=== PATIENT | female | born 1995 | race Caucasian/White ===

== ENCOUNTER → 2016-06-30 | Outpatient (CLI) | payer OTHER ==
[~2016-06-30] MED LIST: BUPR8SUB19 SL; PRENTAB26 PO; SERT50TA PO; VALA500T60 PO
[2016-06-30 18:10] LABS: URINE APPEARANCE TURBID (CLEAR); URINE BILIRUBIN NEG (NEG); URINE COLOR DK YELLOW; URINE NITRITE POS (NEG); URINE SPECIFIC GRAVITY 1.012 (1.000-1.030); UROBILINOGEN NEG (NEG)
[2016-06-30 18:18] LABS: MANUAL MICROSCOPIC REQUIRED? NO; REVIEW REQ? NO
--- NOTE | 2016-07-03 13:16 | CODING QUERY NO DIAGNOSIS ---
: 1995 TREATMENT RENDERED WITHOUT A DIAGNOSIS To promote full compliance with coding requirements relating to patient care, physician participation is requested in all cases of exhibits manager uncertainty. Please assist us with providing a diagnosis/symptom for the test(s) below: A diagnosis/symptom was not documented on your Order. A valid diagnosis/symptom is required to bill all insurances. Please remember that we are unable to code a diagnosis of rule out, probable, possible, questionable, or suspected. Tests that require a diagnosis: DOS: 06/30/16 * UA Clean Catch DIAGNOSIS: * Urine Culture Clean Catch DIAGNOSIS: Provider Signature: Date: Thank you Dulce Maria [facility] Information Management Once completed, please kindly fax back to [phone] For questions please call [phone]
== END | disposition home or self-care (01) ==
LOC: C.LABSPEC 16:45
PROVIDERS: ATTEND Obstetrics & Gynecology
DX: R30.0 Dysuria (principal); O26.892 Other specified pregnancy related conditions, second trimester; M54.6 Pain in thoracic spine; O30.002 Twin pregnancy, unspecified number of placenta and unspecified number of amniotic sacs, second trimester

== ENCOUNTER → 2016-10-10 | Outpatient (CLI) | payer OTHER | END | disposition home or self-care (01) | LOC: C.LABSPEC 14:52 | PROVIDERS: ATTEND Obstetrics & Gynecology | DX: O30.043 Twin pregnancy, dichorionic/diamniotic, third trimester (principal) ==

== ENCOUNTER 2016-10-11 11:44 | Outpatient (CLI) | payer OTHER ==
[~2016-10-11 11:44] MED LIST changes: -BUPR8SUB19 SL; -SERT50TA PO; -VALA500T60 PO
[2016-10-13] MEDS ORDERED: SERT50TA PO (11:14)
[2016-10-13] MEDS ORDERED: BUPR8SUB19 SL (11:14)
[2016-10-13] MEDS ORDERED: VALA500T60 PO (11:14)
--- NOTE | 2016-10-17 10:22 | EDITING REQUIRED CODING QUERY ---
DIAGNOSIS NEEDED To promote full compliance with coding requirements relating to patient care, physician participation is requested in all cases of arbitrator uncertainty. Please assist us with the question(s) below: Coding Question: The patient received care in labor and delivery on 10/11/16 as noted within the record. Please document the diagnosis that is being addressed by the medication/treatment. Provider Response: DIAGNOSIS:twin IUGR Thank you for your assistance, Sonia Rodriguez - [employer]
== END 2016-10-11 14:04 | disposition home or self-care (01) ==
LOC: C.OPB 11:44 → C.LD 11:44 → C.OPB 14:04
PROVIDERS: ATTEND Obstetrics & Gynecology
DX: O30.003 Twin pregnancy, unspecified number of placenta and unspecified number of amniotic sacs, third trimester (principal); O36.5930 Maternal care for other known or suspected poor fetal growth, third trimester, not applicable or unspecified; Z3A.36 36 weeks gestation of pregnancy

== ENCOUNTER 2016-10-16 10:33 | Inpatient (IN) | payer OTHER ==
--- NOTE | 2016-10-13 10:46 | HISTORY & PHYSICAL EXAMINATION ---
DATE OF ADMISSION: 10/25/2016 CHIEF COMPLAINT: Twin intrauterine , hepatitis C, intrauterine growth retardation, smoker. HISTORY OF PRESENT ILLNESS: The patient is a 21-year-old 5, para 3, has had one spontaneous AB, present twin was diagnosed in the first trimester, her due date is 11/08/2016. She also has a history of heroin abuse. She is hepatitis C positive for 1 year. Presently on Subutex 8 mg twice a day for control of the heroin addiction. She has been treated twice with Celestone during her due to threatened premature labor. Once she had 2 injections at 24 and she had 2 injections at 29. Presently being followed with serial ultrasounds and NSTs. OBSTETRICAL HISTORY: 2009, she had a boy, 6 pounds 10 ounces, spontaneous vaginal delivery at 40 weeks; 2010, another boy, 6 pounds 6 ounces, spontaneous vaginal delivery at 40 weeks; third, 2013, 6 pounds 4 ounces, spontaneous vaginal delivery at 38 weeks. Her present shows twins with twin A breech, twin B vertex, and lack of abdominal growth in twin A. Presently being scheduled for primary low-segment section. SOCIAL HISTORY: Smokes 5 cigarettes a day and has done so for 12 years. No history of alcohol intake. She was employed but quit with . FAMILY HISTORY: Mom is 51, in good health. Father, 58, has arthritis. One brother is 30, in good health. REVIEW OF SYSTEMS: HEAD: No symptoms of frequent or severe headaches. EYES: No symptoms of blurred vision, double vision. EARS: No symptoms of frequent ear infections, difficulty hearing. NOSE: No symptoms of frequent nosebleeds, difficulty breathing through her nose. THROAT: No symptoms of frequent or severe sore throats, difficulty swallowing. RESPIRATORY: No history of asthma, chest pain, shortness of breath. PHYSICAL EXAMINATION: GENERAL: Well-developed, well-nourished 21-year-old white female, alert, oriented x3 and cooperative, in no acute distress, appears her stated age. EYES: Conjunctivae are pink, sclerae white, no evidence of jaundice. EARS: Have normal light reflex bilaterally. NOSE: Have normal mucosa. Septum is midline. There are no polyps. THROAT: Has no erythema or evidence of infection. Teeth are in good state of repair. HEAD: Normocephalic, normal distribution of hair. NECK: Supple. Trachea midline. Thyroid is not enlarged. There is no adenopathy appreciated. Both carotids are of good intensity. CHEST: Clear to auscultation and percussion. No wheezes, rales or rhonchi appreciated. ABDOMEN: Reveals a 44 cm fundal height. Movement is palpable. heart tones are palpable. PELVIC: Reveals cervix to be 4-5 cm, posterior, at about 0 station. MUSCULOSKELETAL: No calf tenderness. IMPRESSIONS OF THIS CASE: Twin , intrauterine growth retardation, hepatitis C, heroin abuse.
--- NOTE | 2016-10-13 11:43 | PAT Medication Instructions ---
Service Date Oct 13, 2016. Current Home Medication List Buprenorphine Hcl (Subutex), 1 TAB SL BID Multivit/Min/Iron/Fol Ac/Pren ( Vitamin), 1 TAB PO QAM Sertraline (Zoloft), 50 MG PO QAM Valacyclovir (Valtrex), 500 MG PO BID Medication Instructions For Your Scheduled Surgery - Hold the following medications the morning of surgery: Multivit/Min/Iron/Fol Ac/Pren ( Vitamin), 1 TAB PO QAM - Take the following medications the morning of surgery with a sip of water: Valacyclovir (Valtrex), 500 MG PO BID Sertraline (Zoloft), 50 MG PO QAM Buprenorphine Hcl (Subutex), 1 TAB SL BID (okay to take up to 4 hours prior to surgery if needed) - Take the following medications as scheduled the night before surgery: Valacyclovir (Valtrex), 500 MG PO BID Buprenorphine Hcl (Subutex), 1 TAB SL BID If you have any questions please call us at [phone] (Radha Copeland PA-C) or [phone] or [phone]
[2016-10-13 13:14] LABS: COMPLETE YES; EOS % 0.6 %; HEMATOCRIT 35.3 % (37-47); IG% 0.1 %; LYMPH % 21.6 %; LYMPH ABS # 1.73 K/uL (1.2-3.4); MEAN CELL VOLUME 89.1 fL (80-100); MEAN CORPUSCULAR HEMOGLOBIN 30.3 pg (25-34); MEAN PLATELET VOLUME 11.2 fL (7.4-10.4); MONO % 5.4 %; NEUT % 72.3 %; PLATELET COUNT 186 K/uL (130-400); RED BLOOD COUNT 3.96 M/uL (4.2-5.4)
[2016-10-13 13:29] LABS: INR 0.9 (0.9-1.1); PARTIAL THROMBOPLASTIN RATIO 1.1; PROTHROMBIN TIME (PATIENT) 9.6 SECONDS (9.0-12.0)
[2016-10-13 13:36] LABS: CALCIUM 8.9 mg/dl (8.5-10.1)
[2016-10-13 13:49] LABS: BLOOD UREA NITROGEN 8 mg/dl (7-18); BUN/CREATININE RATIO 13.4 (10-20); CARBON DIOXIDE 22 mmol/L (21-32); CHLORIDE 105 mmol/L (98-107); CREATININE 0.58 mg/dl (0.60-1.20); GLUCOSE 93 mg/dl (70-99); POTASSIUM 3.9 mmol/L (3.5-5.1); SODIUM 138 mmol/L (136-145)
[~2016-10-16] VITALS: Ht 167.6 cm; Wt 74.1 kg
[~2016-10-16 10:33] MED LIST changes: +BUPR8SUB19 SL; +CEFOXITIN IV 2,000 MG in DEXTROSE 5% 50ML 50 ML IV SCH; +SERT50TA PO; +VALA500T60 PO
[2016-10-16] MEDS ORDERED: LACTATED RINGER'S 1000ML 1,000 ML IV SCH ×2 (11:41→12:00)
[2016-10-16] MEDS ORDERED: CITRIC ACID/SODIUM CITRATE 15 ML UDC PO SCH (11:45)
[2016-10-16 12:39] VITALS: Ht 167.6 cm; Wt 74.1 kg
[2016-10-16 12:45] LABS: BASO % 0.1 %; BASO ABS # 0.01 K/uL (0-0.2); COMPLETE YES; EOS % 0.1 %; HEMATOCRIT 35.4 % (37-47); IG% 0.4 %; LYMPH % 17.4 %; LYMPH ABS # 1.37 K/uL (1.2-3.4); MEAN CELL VOLUME 88.7 fL (80-100); MEAN CORPUSCULAR HEMOGLOBIN 29.1 pg (25-34); MEAN CORPUSCULAR HGB CONC 32.8 g/dl (32-36); MEAN PLATELET VOLUME 10.6 fL (7.4-10.4); MONO % 6.6 %; NEUT % 75.4 %; PLATELET COUNT 187 K/uL (130-400); RED BLOOD COUNT 3.99 M/uL (4.2-5.4); WHITE BLOOD COUNT 7.89 K/uL (4.8-10.8)
[2016-10-16 14:43] LABS: BENZODIAZEPINE, URINE NEG (NEG); COCAINE,URINE NEG (NEG); PHENCYCLIDINE, URINE NEG (NEG)
[2016-10-16] MEDS ORDERED: MoRPHine SULFATE PF 1 MG/ML 10 ML AMP/VIAL ONE (14:46)
[2016-10-16] MEDS ORDERED: MoRPHine SULFATE PF 1 MG/ML 10 ML AMP/VIAL EPI PRN (15:00)
[2016-10-16] MEDS ORDERED: ONDANSETRON INJ 2 MG/ML 2 ML VIAL IV PRN ×2 (15:00)
[2016-10-16] MEDS ORDERED: KETOROLAC TROMETHAMINE 30 MG/ML VIAL IV. PRN (15:00)
[2016-10-16] MEDS ORDERED: NALOXONE HCL 0.4 MG/1 ML VIAL/CARP IV PRN (15:00)
[2016-10-16] MEDS ORDERED: NO NARCOTICS OR SEDATIVES SCH (15:00)
[2016-10-16] MEDS ORDERED: NALOXONE HCL INJ 0.08 MG in SYRINGE 1.8 ML IV PRN (15:00)
[2016-10-16] MEDS ORDERED: LACTATED RINGER'S 1000ML 500 ML IV PRN (15:00)
[2016-10-16] MEDS ORDERED: PROMETHAZINE HCL INJ 25 MG in SODIUM CHLORIDE 0.9% 50ML 50 ML IV PRN (15:00)
[2016-10-16] MEDS ORDERED: SODIUM CHLORIDE 0.9% 1000ML 1,000 ML IV PRN (15:00)
[2016-10-16] MEDS ORDERED: NALOXONE HCL INJ 1 MG in SODIUM CHLORIDE 0.9% 1000ML 1,000 ML IV PRN ×4 (15:00)
[2016-10-16] MEDS ORDERED: PROMETHAZINE HCL INJ 12.5 MG in SODIUM CHLORIDE 0.9% 50ML 50 ML IV PRN (15:00)
[2016-10-16] MEDS ORDERED: EpHEDrine SULFATE INJ 50 MG/ML AMP IV PRN ×2 (15:00)
[2016-10-16] MEDS ORDERED: NALBUPHINE HCL INJ 10 MG/ML AMP IV PRN (15:00)
[2016-10-16] MEDS ORDERED: ATROPINE SULFATE 0.1 MG/ML 5ML SYR IV PRN (15:00)
[2016-10-16] MEDS ORDERED: PHENYLEPHRINE 100MCG/ML 5ML SYR IV PRN (15:00)
[2016-10-16] MEDS ORDERED: DiphenhydrAMINE HCL 50 MG/ML VIAL IV PRN (15:00)
[2016-10-16] MEDS ORDERED: OXYTOCIN INJ 10 UNITS/ML VIAL ONE ×3 (15:32→16:07)
[2016-10-16] MEDS ORDERED: ONDANSETRON INJ 2 MG/ML 2 ML VIAL ONE (15:32)
[2016-10-16] MEDS ORDERED: METOCLOPRAMIDE HCL INJ 5 MG/ML 2 ML VIAL ONE (15:32)
[2016-10-16] MEDS ORDERED: MIDAZOLAM HCL 1 MG/ML 2ML VIAL ONE (16:06)
[2016-10-16] MEDS ORDERED: ALBUTEROL HFA INHALER 8.5 GM INH ONE (16:29)
[2016-10-16] MEDS ORDERED: SENNA 8.6 MG TAB PO PRN (16:30)
[2016-10-16] MEDS ORDERED: DIPHTHERIA/TETANUS/PERTUSSIS 0.5 ML SYR/VIAL IM. ONE (16:30)
[2016-10-16] MEDS ORDERED: SUPERCREAM 0.870 % 15GM JAR EXT PRN (16:30)
[2016-10-16] MEDS ORDERED: LANOLIN OINT EXT PRN ×2 (16:30)
[2016-10-16] MEDS ORDERED: BENZOCAINE 20% AER SPR 82.5 GM CAN EXT PRN (16:30)
[2016-10-16] MEDS ORDERED: HYDROCORTISONE ACETATE 25 MG SUPP PR PRN (16:30)
[2016-10-16] MEDS ORDERED: MAGNESIUM HYDROXIDE SUSP 30 ML UDC PO PRN (16:30)
[2016-10-16] MEDS ORDERED: PROPOFOL IV EMULSION 10 MG/ML 20 ML VIAL IV ONE (16:33)
[2016-10-16] MEDS ORDERED: SUCCINYLCHOLINE CHLORIDE 20 MG/ML 10 ML VIAL IV ONE (16:33)
--- NOTE | 2016-10-16 16:51 | OPERATIVE REPORT ---
DATE OF OPERATION: 10/16/2016 PROCEDURE: Primary low segment section. INDICATIONS FOR SURGERY: Toxemia of , proteinuria, history of heroin addiction, intrauterine growth restriction, breech presentation twin A. SURGEON: DR MURO ASS: ABHISHEK PREOPERATIVE DIAGNOSIS: Intrauterine growth restriction, toxemia, proteinuria. POSTOPERATIVE DIAGNOSIS: Same, nuchal cord around each twin, breech presentation of twin A, vertex presentation twin B. OPERATIVE FINDINGS AND PROCEDURE: The patient was taken to the OR after given prophylactic antibiotics and sequential compression stockings were applied. In the OR she received spinal anesthesia. After spinal anesthesia had been obtained and a good level obtained, lower abdomen was painted with Betadine paint. Osullivan catheter was inserted aseptically in the bladder connected to gravity drainage. After draping in the usual sterile fashion and testing for level, Pfannenstiel incision was made and carried down to the anterior fascia by sharp dissection. Hemostasis was secured by electrocauterization. Fascia was incised transversely, from underlying muscle by blunt and sharp dissection. Recti muscles were in the midline exposing the peritoneum which was carefully raised and entered. Incision was made above the vesicouterine fold. Bladder was pushed out of the operative field. The lower uterine segment was scored with a knife then entered with scissors and clear amniotic fluid was seen at this time. Visual Merchandiser's hand was inserted in the uterine cavity. With fundal pressure the first infant was delivered via breech presentation. There was a nuchal cord x1 which had to be reduced and then cord was clamped and cut and the infant was attended to by special class welder, Dr. Salmon who was scrubbed and present at the time of delivery. Following this, the second amniotic sac was ruptured. The second twin was vertex, had a nuchal cord which was reduced around the neck and then the body was delivered without difficulty. Cord was clamped and cut and that twin was attended to by the pediatricians. Following this, cord blood was taken. Placenta was removed manually. Uterus, tubes, and ovaries were brought out through the incision. Ten units of Pitocin was injected into the myometrium. Uterine cavity was cleansed with a clean sponge. Then a chromic gut suture was used to approximate the muscular layer with a continuous interlocking suture of chromic. Several interrupted sutures had to be used on the right due to some bleeding from the right uterine arteries. Following control the bleeding a second layer was placed with a heavy duty Vicryl suture and this approximated the fascial layer over the myometrial closure. Following this, 2 [id number] sutures were placed in the middle to complete the hemostatic process. Peritoneal edges were approximated with continuous 3-0 chromic gut suture. Uterus, tubes, and ovaries were inspected and found to be normal. Pelvis was cleansed of all blood clots and debris. Uterus, tubes, and ovaries were reinserted in the abdominal cavity. Careful anatomical approximation anterior abdominal wall was performed. Peritoneum was closed with a mattress suture of chromic catgut. Recti muscles were approximated with interrupted [id number] suture of chromic catgut. The fascia was closed with continuous interlocking suture of Vicryl on each side, tied in the midline. SubQ was approximated with continuous plain and skin edges were approximated with staple clips. I attest to the content of the Intraoperative Record and any orders documented therein. Any exceptions are noted below. MINDYD
[2016-10-16] MEDS: OXYTOCIN INJ 20 UNITS in LACTATED RINGER'S 1000ML 1,000 ML IV SCH (17:02)
[2016-10-16] MEDS ORDERED: NURSING VERBAL MED ORDER ONE ×3 (17:45→22:15)
[2016-10-16] MEDS: MEPERIDINE HCL 25 MG/ML CARP IV PRN ×2 (17:45→18:34)
[2016-10-16] MEDS: BUPRENORPHINE HCL 8 MG SUBL SL SCH (19:18)
[2016-10-16] MEDS ORDERED: BUPRENORPHINE HCL 8 MG SUBL SL SCH ×2 (20:00)
[2016-10-16 21:30] VITALS: BP 121/69; PULSE 82; TEMP 36.7; O2SAT 90
[2016-10-16 22:30] VITALS: O2SAT 92
[2016-10-16] MEDS ORDERED: ACETAMINOPHEN IV 1000MG/100ML IV PRN (22:30)
[2016-10-16] MEDS: KETOROLAC TROMETHAMINE 30 MG/ML VIAL IV. PRN (23:23)
[2016-10-16 23:30] VITALS: BP 127/83; PULSE 76; TEMP 37.2; O2SAT 91
[2016-10-17] VITALS (15 sets, daily range): BP systolic 105–119; BP diastolic 70–82; PULSE 61–88; TEMP 36.6–37; O2SAT 91–98
[2016-10-17] MEDS: MEPERIDINE HCL 25 MG/ML CARP IV PRN ×2 (01:07→06:22)
[2016-10-17] MEDS: DOCUSATE SODIUM 100 MG CAP PO SCH ×3 (01:11→20:26)
[2016-10-17] MEDS: SIMETHICONE 80 MG CHEW PO SCH ×6 (01:12→20:26)
[2016-10-17] MEDS: OXYTOCIN INJ 20 UNITS in LACTATED RINGER'S 1000ML 1,000 ML IV SCH (01:16)
[2016-10-17] MEDS: BUPRENORPHINE HCL 8 MG SUBL SL SCH ×2 (06:02→14:06)
[2016-10-17 06:32] LABS: BASO % 0.1 %; BASO ABS # 0.01 K/uL (0-0.2); COMPLETE YES; EOS % 0.3 %; HEMATOCRIT 31.8 % (37-47); IG% 0.2 %; LYMPH % 19.8 %; LYMPH ABS # 1.76 K/uL (1.2-3.4); MEAN CELL VOLUME 89.3 fL (80-100); MEAN CORPUSCULAR HEMOGLOBIN 30.1 pg (25-34); MEAN CORPUSCULAR HGB CONC 33.6 g/dl (32-36); MEAN PLATELET VOLUME 10.7 fL (7.4-10.4); NEUT % 73.6 %; PLATELET COUNT 168 K/uL (130-400); RED BLOOD COUNT 3.56 M/uL (4.2-5.4); WHITE BLOOD COUNT 8.87 K/uL (4.8-10.8)
--- NOTE | 2016-10-17 06:55 | Anesthesiology Progress Note ---
Anesthesia Post Op Note Date & Time October 17, 2016 at 06:53 Vital Signs Pain Intensity: 6.0 Vital Signs Past 12 Hours Date Time Temp Pulse Resp B/P Pulse Ox O2 Delivery O2 Flow Rate FiO2 10/17/16 06:28 18 94 Room Air 10/17/16 06:27 18 94 10/17/16 05:30 16 97 10/17/16 04:30 16 98 10/17/16 04:30 36.8 70 16 119/82 98 Venturi Mask 15.0 10/17/16 03:30 16 97 10/17/16 02:30 18 97 10/17/16 01:30 20 96 10/17/16 01:30 20 96 Venturi Mask 15.0 10/17/16 01:00 26 91 10/17/16 01:00 26 91 Venturi Mask 15.0 10/16/16 23:30 91 Nasal Cannula 4.0 10/16/16 23:30 20 91 10/16/16 23:30 Nasal Cannula 2.0 88 10/16/16 23:30 37.2 76 20 127/83 91 Nasal Cannula 4.0 10/16/16 22:30 20 92 10/16/16 21:30 22 90 10/16/16 21:30 36.7 82 22 121/69 90 Nasal Cannula 4.0 10/16/16 21:30 90 Nasal Cannula 4.0 Notes Mental Status: alert / awake / arousable, participated in evaluation Pt Amnestic to Procedure: Yes Nausea / Vomiting: adequately controlled Pain: adequately controlled, improving with treatment Airway Patency, RR, SpO2: stable & adequate, see Notes BP & HR: stable & adequate Hydration State: stable & adequate Anesthetic Complications: no major complications apparent Doing a lot of coughing through the evening, coughing up a lot of mucus - still off and on using oxygen.
[2016-10-17] MEDS: KETOROLAC TROMETHAMINE 30 MG/ML VIAL IV. PRN (07:51)
--- NOTE | 2016-10-17 07:53 | Progress Note ---
Subjective October 17, 2016. Subjective conversation w/ patient Ambulation: limited ambulation Voiding: dudley catheter in place Passing Gas: No Diet Tolerance: Clear Liquids Lochia: Small Review of Systems Constitutional: + fever Objective Vital Signs Date Time Temp Pulse Resp B/P Pulse Ox O2 Delivery O2 Flow Rate FiO2 10/17/16 06:28 18 94 Room Air 10/17/16 06:27 18 94 10/17/16 05:30 16 97 10/17/16 04:30 16 98 10/17/16 04:30 36.8 70 16 119/82 98 Venturi Mask 15.0 10/17/16 03:30 16 97 10/17/16 02:30 18 97 10/17/16 01:30 20 96 10/17/16 01:30 20 96 Venturi Mask 15.0 10/17/16 01:00 26 91 10/17/16 01:00 26 91 Venturi Mask 15.0 10/16/16 23:30 91 Nasal Cannula 4.0 10/16/16 23:30 20 91 10/16/16 23:30 Nasal Cannula 2.0 88 10/16/16 23:30 37.2 76 20 127/83 91 Nasal Cannula 4.0 10/16/16 22:30 20 92 10/16/16 21:30 22 90 10/16/16 21:30 36.7 82 22 121/69 90 Nasal Cannula 4.0 10/16/16 21:30 90 Nasal Cannula 4.0 Physical Exam General Appearance: mild distress Respiratory/Chest: lungs clear Abdomen: non tender Fundus: Firm, Non-Tender Incision Description: Clean, Dry & Intact Laboratory Results Last 24 Hours Test 10/16/16 11:59 10/16/16 14:05 10/16/16 15:25 10/17/16 06:15 White Blood Count 7.89 K/uL 8.87 K/uL Red Blood Count 3.99 M/uL 3.56 M/uL Hemoglobin 11.6 g/dL 10.7 g/dL Hematocrit 35.4 % 31.8 % Mean Corpuscular Volume 88.7 fL 89.3 fL Mean Corpuscular Hemoglobin 29.1 pg 30.1 pg Mean Corpuscular Hemoglobin Concent 32.8 g/dl 33.6 g/dl Platelet Count 187 K/uL 168 K/uL Mean Platelet Volume 10.6 fL 10.7 fL Neutrophils (%) (Auto) 75.4 % 73.6 % Lymphocytes (%) (Auto) 17.4 % 19.8 % Monocytes (%) (Auto) 6.6 % 6.0 % Eosinophils (%) (Auto) 0.1 % 0.3 % Basophils (%) (Auto) 0.1 % 0.1 % Neutrophils # (Auto) 5.95 K/uL 6.52 K/uL Lymphocytes # (Auto) 1.37 K/uL 1.76 K/uL Monocytes # (Auto) 0.52 K/uL 0.53 K/uL Eosinophils # (Auto) 0.01 K/uL 0.03 K/uL Basophils # (Auto) 0.01 K/uL 0.01 K/uL RDW Standard Deviation 46.5 fL 46.9 fL RDW Coefficient of Variation 14.2 % 14.3 % Immature Granulocyte % (Auto) 0.4 % 0.2 % Immature Granulocyte # (Auto) 0.03 K/uL 0.02 K/uL Urine Opiates Screen NEG Urine Methadone, Qualitative NEG Urine Barbiturates NEG Urine Phencyclidine (PCP) Level NEG Ur Amphetamine/Methamphetamine NEG MDMA (Ecstasy) Screen NEG Urine Benzodiazepines Screen NEG Urine Cocaine Metabolite NEG Urine Marijuana (THC) NEG Total Bilirubin 0.4 mg/dl Direct Bilirubin 0.2 mg/dl Aspartate Amino Transf (AST/SGOT) 46 U/L Alanine Aminotransferase (ALT/SGPT) 76 U/L Alkaline Phosphatase 310 U/L Total Protein 6.6 gm/dl Albumin 2.3 gm/dl Assessment and Plan Problem List Medical Problems: (1) Diffuse abdominal pain Status: Acute (2) Opioid withdrawal Status: Acute (3) Status: Acute Post-Op Day#: 1 Continue Routine Care: hypoactive bowel sounds
[2016-10-17] MEDS ORDERED: BUPRENORPHINE HCL 8 MG SUBL SL SCH (08:00)
[2016-10-17] MEDS ORDERED: DC INTRASPINAL MORPHINE SCH (08:00)
[2016-10-17] MEDS ORDERED: ONDANSETRON INJ 2 MG/ML 2 ML VIAL IV PRN (08:01)
[2016-10-17] MEDS ORDERED: KETOROLAC TROMETHAMINE 30 MG/ML VIAL IV. PRN (08:01)
[2016-10-17] MEDS ORDERED: ZOLPIDEM TARTRATE 5 MG TAB PO PRN (08:01)
[2016-10-17] MEDS ORDERED: DiphenhydrAMINE HCL 50 MG/ML VIAL IV PRN (08:01)
[2016-10-17] MEDS ORDERED: MEPERIDINE HCL 50 MG/ML CARP IV PRN ×2 (08:01)
[2016-10-17] MEDS: FERROUS SULFATE 325 MG TAB PO SCH (08:46)
[2016-10-17] MEDS: PRENATAL VITAMIN TAB PO SCH (08:46)
[2016-10-17] MEDS ORDERED: ALBUTEROL HFA 8 GM INHALER INH PRN (09:15)
[2016-10-17] MEDS: OXYCODONE/ACETAMINOPHEN 5-325 TAB PO PRN ×3 (11:45→20:33)
--- NOTE | 2016-10-17 12:42 | Progress Note ---
Subjective Date of Service: October 17, 2016. Subjective Pt evaluation today including: conversation w/ patient, conversation w/ family , physical exam, chart review, lab review, review of studies, conversation w/ client relationship consultant, review of inpatient medication list asked to see due to SOB, hypoxia. came to hospital per OB - concern on multiple risks for worsening outcomes and hence Csection. during section, spinal block was not helping enough with pain - changed to ETT. after awakening and since - SOB, cough, pain with cough (mostly incisional pain at Csection site). no f/c/s. white/frothy sputum with a decent amount of blood. substernal chest pain with coughing as well. no particularly swollen leg no calf pain. babies had to go to [facility] but reportedly are doing well. pumping breast milk, wants to be able to get to babies as soon as is safe. notes her older children at home (2 boys 19 months apart) have both been sick w strep and other respiratory infections, and with hindsight she felt like she was coming down wtih something before coming to L&D (she informed me of this when i revisited after CT) initial HPI basically sob, cough, bloody sputum, throat pain. no f/c/s. couldn't talk much - partly due to dyspnea and partly due to throat pain Problem List Medical Problems: (1) Diffuse abdominal pain Status: Acute (2) Opioid withdrawal Status: Acute (3) Status: Acute Review of Systems Constitutional: No chills, No fever, No sweats ENT: + sore throat Respiratory: + cough, + dyspnea at rest, + dyspnea on exertion, + hemoptysis, + sputum Abdomen: + problem reported (pain at section scar) ros otherwise negative except for as above Objective Vital Signs Date Time Temp Pulse Resp B/P Pulse Ox O2 Delivery O2 Flow Rate FiO2 10/17/16 08:15 Room Air 10/17/16 08:15 36.8 71 18 118/80 95 Venturi Mask 15.0 10/17/16 07:30 16 95 10/17/16 06:28 18 94 Room Air 10/17/16 06:27 18 94 10/17/16 05:30 16 97 10/17/16 04:30 16 98 10/17/16 04:30 36.8 70 16 119/82 98 Venturi Mask 15.0 10/17/16 03:30 16 97 10/17/16 02:30 18 97 10/17/16 01:30 20 96 10/17/16 01:30 20 96 Venturi Mask 15.0 10/17/16 01:00 26 91 10/17/16 01:00 26 91 Venturi Mask 15.0 10/16/16 23:30 91 Nasal Cannula 4.0 10/16/16 23:30 20 91 10/16/16 23:30 Nasal Cannula 2.0 88 10/16/16 23:30 37.2 76 20 127/83 91 Nasal Cannula 4.0 10/16/16 22:30 20 92 10/16/16 21:30 22 90 10/16/16 21:30 36.7 82 22 121/69 90 Nasal Cannula 4.0 10/16/16 21:30 90 Nasal Cannula 4.0 Physical Exam General Appearance: + pertinent finding (sitting upright, appearing fatigued and a little dyspnic) Eyes: EOMI ENT: pharynx normal Neck: trachea midline Respiratory/Chest: no respiratory distress, no accessory muscle use, + pertinent finding (faintly coarse breath sounds R upper lung field. no rales no wheeze no rhonchi overall good air entry good effort, appearing mildly dyspnic but no accessory muscles) Cardiovascular: regular rate, rhythm Comments: msk/ost - R>L Tspine paraspinals and intercostals high tone/tender/decreased ROM - direct myofascial and balanced ligamentous tension - improved. pt tolerated well Laboratory Results Last 24 Hours Test 10/16/16 14:05 10/16/16 15:25 10/17/16 06:15 Urine Opiates Screen NEG Urine Methadone, Qualitative NEG Urine Barbiturates NEG Urine Phencyclidine (PCP) Level NEG Ur Amphetamine/Methamphetamine NEG MDMA (Ecstasy) Screen NEG Urine Benzodiazepines Screen NEG Urine Cocaine Metabolite NEG Urine Marijuana (THC) NEG Total Bilirubin 0.4 mg/dl Direct Bilirubin 0.2 mg/dl Aspartate Amino Transf (AST/SGOT) 46 U/L Alanine Aminotransferase (ALT/SGPT) 76 U/L Alkaline Phosphatase 310 U/L Total Protein 6.6 gm/dl Albumin 2.3 gm/dl White Blood Count 8.87 K/uL Red Blood Count 3.56 M/uL Hemoglobin 10.7 g/dL Hematocrit 31.8 % Mean Corpuscular Volume 89.3 fL Mean Corpuscular Hemoglobin 30.1 pg Mean Corpuscular Hemoglobin Concent 33.6 g/dl Platelet Count 168 K/uL Mean Platelet Volume 10.7 fL Neutrophils (%) (Auto) 73.6 % Lymphocytes (%) (Auto) 19.8 % Monocytes (%) (Auto) 6.0 % Eosinophils (%) (Auto) 0.3 % Basophils (%) (Auto) 0.1 % Neutrophils # (Auto) 6.52 K/uL Lymphocytes # (Auto) 1.76 K/uL Monocytes # (Auto) 0.53 K/uL Eosinophils # (Auto) 0.03 K/uL Basophils # (Auto) 0.01 K/uL RDW Standard Deviation 46.9 fL RDW Coefficient of Variation 14.3 % Immature Granulocyte % (Auto) 0.2 % Immature Granulocyte # (Auto) 0.02 K/uL Assessment and Plan hypoxia, hemoptysis -initial ddx given clear lungs, no f/c/s, hemoptysis was PE vs laryngeal from ETT -stat CT - fortunately negative for PE, but did show multifocal pneumonia - when revisited pt then gave additional hx (sick kids, feeling like she was "coming down with something" prior to arriving at L&D that corroborated this well) community acquired pneumonia -zithromax, rocephin (both safe w ) -ipratropium (safe w ) -albuterol if needed (can make somewhat tachy or tremulous but if needed for breathing risks outweigh benefits and pt could also simply not give that breast milk if concerned) acute hypoxic respiratory failure -appearing to be from pneumonia superimposed on COPD -treat as above -once clearly stable, if can be discharged sooner with home O2 she would desire this so that she can get to [facility] to see her twins COPD -PFTs from 2015 actually did show moderate COPD, alpha one level Ok. most likely from a persistent asthma "brand" of COPD -appears on outpatient records at least from pulmonary to be spotty with follow up and therefore ?adherence -hopefully can have regular f/u at least with PCP -currently not wheezing, no clear benefit to systemic steroids somatic dysfunction - thoracic and rib region -pulling on data from more elderly with pneumonia - treatment as above can hasten resolution of pneumonia, and in data from children with asthma said treatment can improve airflow -OMT as above DVT proph -ambulation
[2016-10-17] MEDS ORDERED: OPTIRAY 320 IV PRN (13:45)
[2016-10-17] MEDS: SERTRALINE HCL 50 MG TAB PO SCH (14:08)
--- NOTE | 2016-10-17 14:16 | DIAGNOSTIC IMAGING REPORT ---
CT ANGIOGRAM OF THE CHEST CLINICAL HISTORY: Hemoptysis. COMPARISON STUDY: Chest CT dated 01/05/2015. Chest x-ray dated 06/17/2015. TECHNIQUE: Following the IV administration of 94 cc of Optiray 320, CT angiogram of the chest was performed from the upper abdomen to the thoracic inlet utilizing the pulmonary embolus protocol. Images are reviewed in the axial, sagittal, and coronal planes. 3-D MIPS images are created and assessed. IV contrast was administered without complication. CT DOSE: 396.57 mGycm FINDINGS: Thyroid: Imaged portions of the thyroid gland are normal in size and attenuation. Thoracic aorta: The thoracic aorta is normal in caliber and demonstrates standard 3-vessel arch anatomy. No dissection is seen. Pulmonary vasculature: The pulmonary trunk is normal in caliber. There are no filling defects identified in main, lobar, or segmental pulmonary branches to suggest pulmonary embolus. Heart: The heart is normal in size and configuration, and without pericardial effusion. Lungs and pleural spaces: There are small pleural effusions. Multifocal patchy airspace consolidation is seen throughout both lungs, greatest in the upper lobes and at the left lung base. Numerous cystic foci are again seen within the upper lobes. The trachea and central airways Are clear. Mediastinum: There is no mediastinal lymphadenopathy. Griselda: Mildly enlarged hilar nodes measure up to 1.4 cm in short axis. These are likely on a reactive basis. Axillae: There is no axillary lymphadenopathy. Upper abdomen: Partially visualized upper abdominal viscera is within normal limits. Skeletal structures: No lytic or blastic bony lesions are seen. IMPRESSION: 1. There is no evidence of pulmonary embolus in the main, lobar, or segmental pulmonary arteries. 2. There is multifocal patchy airspace consolidation seen throughout both lungs and small pleural effusions. The appearance is typical for multifocal pneumonia. Radiographic follow-up to resolution is recommended. 3. Numerous small pulmonary cysts are similar to previous. Electronically signed by: Kvng Craven M.D. 10/17/2016 2:15 PM Dictated Date/Time: 10/17/2016 2:11 PM
[2016-10-17] MEDS ORDERED: IPRATROPIUM BROMIDE NEB SOLN 0.02% 2.5 ML VIAL INH ONE (14:45)
[2016-10-17] MEDS ORDERED: CEFTRIAXONE SOD INJ 1,000 MG in DEXTROSE 5% 50ML 50 ML IV ONE (14:45)
[2016-10-17] MEDS ORDERED: AZITHROMYCIN IV 500 MG in DEXTROSE 5% 250ML 250 ML IV ONE (15:30)
[2016-10-17] MEDS: IBUPROFEN 600 MG TAB PO PRN ×2 (15:50→20:33)
[2016-10-17] MEDS ORDERED: BISACODYL 5 MG TABEC PO ONE (22:00)
[2016-10-18] MEDS ORDERED: IPRATROPIUM BROMIDE NEB SOLN 0.02% 2.5 ML VIAL INH SCH
[2016-10-18] MEDS: OXYCODONE/ACETAMINOPHEN 5-325 TAB PO PRN ×4 (00:36→13:27)
[2016-10-18] MEDS: IBUPROFEN 600 MG TAB PO PRN ×3 (00:36→13:27)
[2016-10-18 01:34] VITALS: PULSE 75; O2SAT 91
[2016-10-18] MEDS: IPRATROPIUM BROMIDE NEB SOLN 0.02% 2.5 ML VIAL INH SCH ×4 (01:34→14:38)
[2016-10-18] MEDS ORDERED: MEPERIDINE HCL 25 MG/ML CARP IV PRN (03:15)
[2016-10-18] MEDS ORDERED: NURSING VERBAL MED ORDER ONE ×2 (03:15→11:15)
[2016-10-18] MEDS: BUPRENORPHINE HCL 8 MG SUBL SL SCH (06:00)
[2016-10-18 07:40] VITALS: PULSE 54; O2SAT 96
[2016-10-18 07:55] VITALS: BP 115/78; PULSE 61; TEMP 36.7; O2SAT 95
[2016-10-18] MEDS ORDERED: BISACODYL 5 MG TABEC PO ONE (08:00)
[2016-10-18] MEDS: PRENATAL VITAMIN TAB PO SCH (08:29)
[2016-10-18] MEDS: SIMETHICONE 80 MG CHEW PO SCH ×3 (08:29→17:22)
[2016-10-18] MEDS: FERROUS SULFATE 325 MG TAB PO SCH (08:29)
[2016-10-18] MEDS: DOCUSATE SODIUM 100 MG CAP PO SCH (08:29)
[2016-10-18] MEDS: SERTRALINE HCL 50 MG TAB PO SCH (08:29)
[2016-10-18 08:33] LABS: HEMATOCRIT 30.1 % (37-47); MEAN CELL VOLUME 89.9 fL (80-100); MEAN CORPUSCULAR HEMOGLOBIN 29.6 pg (25-34); MEAN CORPUSCULAR HGB CONC 32.9 g/dl (32-36); MEAN PLATELET VOLUME 10.2 fL (7.4-10.4); PLATELET COUNT 188 K/uL (130-400); RED BLOOD COUNT 3.35 M/uL (4.2-5.4); WHITE BLOOD COUNT 8.17 K/uL (4.8-10.8)
[2016-10-18 09:00] LABS: BLOOD UREA NITROGEN 8 mg/dl (7-18); BUN/CREATININE RATIO 14.9 (10-20); CARBON DIOXIDE 25 mmol/L (21-32); CHLORIDE 107 mmol/L (98-107); CREATININE 0.51 mg/dl (0.60-1.20); GLUCOSE 61 mg/dl (70-99); POTASSIUM 4.1 mmol/L (3.5-5.1); SODIUM 140 mmol/L (136-145)
[2016-10-18 09:28] LABS: CALCIUM 8.4 mg/dl (8.5-10.1)
--- NOTE | 2016-10-18 09:38 | Progress Note ---
Subjective October 18, 2016. Subjective conversation w/ patient Ambulation: ambulating normally Voiding: no voiding problems, dudley catheter in place Passing Gas: Yes Diet Tolerance: Regular Diet Lochia: Small Feeding Type: Breast Feeding Review of Systems Constitutional: + fever Objective Vital Signs Date Time Temp Pulse Resp B/P Pulse Ox O2 Delivery O2 Flow Rate FiO2 10/18/16 07:40 54 16 96 Room Air 10/18/16 01:34 75 91 Room Air 10/17/16 23:20 36.6 61 20 118/74 95 Room Air 10/17/16 23:20 95 Room Air 10/17/16 20:51 70 95 Room Air 35 10/17/16 16:30 97 Nasal Cannula 5.0 Humidified Oxygen 10/17/16 16:30 37.0 64 24 105/70 97 Nasal Cannula 5.0 Humidified Oxygen 10/17/16 16:04 74 95 Venturi Mask 35 10/17/16 12:15 36.6 88 16 112/80 94 Room Air Physical Exam General Appearance: WELL-APPEARING Abdomen: normal bowel sounds, non tender Fundus: Firm, Non-Tender Incision Description: Clean, Dry & Intact Extremities: no pedal edema, no calf tenderness Laboratory Results Last 24 Hours Test 10/18/16 08:16 White Blood Count 8.17 K/uL Red Blood Count 3.35 M/uL Hemoglobin 9.9 g/dL Hematocrit 30.1 % Mean Corpuscular Volume 89.9 fL Mean Corpuscular Hemoglobin 29.6 pg Mean Corpuscular Hemoglobin Concent 32.9 g/dl RDW Standard Deviation 47.5 fL RDW Coefficient of Variation 14.4 % Platelet Count 188 K/uL Mean Platelet Volume 10.2 fL Sodium Level 140 mmol/L Potassium Level 4.1 mmol/L Chloride Level 107 mmol/L Carbon Dioxide Level 25 mmol/L Anion Gap 8.0 mmol/L Blood Urea Nitrogen 8 mg/dl Creatinine 0.51 mg/dl Est Creatinine Clear Calc Drug Dose 176.6 ml/min Estimated GFR () > 150.0 Estimated GFR (Non- 135.5 BUN/Creatinine Ratio 14.9 Random Glucose 61 mg/dl Calcium Level 8.4 mg/dl Assessment and Plan Problem List Medical Problems: (1) Diffuse abdominal pain Status: Acute (2) Opioid withdrawal Status: Acute (3) Status: Acute Post-Op Day#: 2 Continue Routine Care: patient is being treated for pneumonia
[2016-10-18 11:25] VITALS: PULSE 67; O2SAT 93
--- NOTE | 2016-10-18 14:29 | Family Medicine Progress Note ---
Progress Note Date of Service October 18, 2016. Subjective Pt evaluation today including: conversation w/ patient, physical exam, chart review, lab review Pain: well-controlled PO Intake: good Voiding: no voiding problems 21-year-old female with past medical history of marijuana and heroin use currently on Suboxone , status post section . Medicine was consulted due to shortness of breath, cough with hemoptysis post C- section. CT chest was done with concerns of PE but was found to have multilobular pneumonia. Her twin newborns are currently in [place] at [facility]. Today she denies any fevers or chills overnight, continues to have cough with blood-tinged sputum but states that her breathing is 90% improved. Denies any chest pain, palpitations, dizziness, calf tenderness. Pain is well controlled and she is pumping breast milk. Constitutional: No chills, No fever Eyes: No worsening of vision ENT: No hearing loss Respiratory: + cough, + shortness of breath (improved), + sputum (blood- tinged) Cardiovascular: No chest pain Abdomen: + problem reported (pain at the incision site), No nausea , No pain Musculoskeletal: No joint pain Female : No dysuria Neurologic: No memory loss Psychiatric: No depression symptoms Heme: No abnormal bleeding/bruising Medications Current Inpatient Medications Medications (Trade) Dose Ordered Sig/Omar Route Start Time Stop Time Status Last Admin Dose Admin Lactated Ringer's (Lr 1000ml) 1,000 ml @ 125 mls/hr Q8H IV 10/16/16 12:00 11/15/16 11:59 10/16/16 13:17 125 MLS/HR Ketorolac Tromethamine (Toradol Inj) 30 mg Q6H PRN IV. 10/17/16 08:01 10/22/16 08:00 Oxycodone/ Acetaminophen (Percocet 5-325mg Tab) 1 tab Q4H PRN PO 10/17/16 08:01 10/31/16 08:00 10/18/16 13:27 1 TAB Oxycodone/ Acetaminophen (Percocet 5-325mg Tab) 2 tab Q4H PRN PO 10/17/16 08:01 10/31/16 08:00 10/17/16 20:33 2 TAB Ibuprofen (Motrin Tab) 600 mg Q4H PRN PO 10/17/16 08:01 11/16/16 08:00 10/18/16 13:27 600 MG Ondansetron HCl (Zofran Inj) 4 mg Q4H PRN IV 10/17/16 08:01 11/16/16 08:00 Prenat Multivit/ Chase/Iron/Folic Ac ( Vitamin Tab) 1 tab DAILY PO 10/17/16 08:00 11/16/16 07:59 10/18/16 08:29 1 TAB Bisacodyl (Dulcolax Supp) 10 mg PRN PRN [place] 10/18/16 16:30 11/17/16 16:29 Docusate Sodium (coLACE CAP) 100 mg BID PO 10/16/16 20:00 11/15/16 19:59 10/18/16 08:29 100 MG Magnesium Hydroxide (Milk Of Magnesia Susp) 30 ml HS PRN PO 10/16/16 16:30 11/15/16 16:29 Ferrous Sulfate (Feosol Tab) 325 mg DAILY PO 10/17/16 08:00 11/16/16 07:59 10/18/16 08:29 325 MG Cocaine HCl (Supercream 0.870% Cr) BID PRN EXT 10/16/16 16:30 10/30/16 16:29 Lanolin (Lanolin Oint) PRN PRN EXT 10/16/16 16:30 11/15/16 16:29 Hydrocortisone Acetate (Anusol Hc Supp) 25 mg BID PRN [place] 10/16/16 16:30 11/15/16 16:29 Benzocaine (Dermoplast Aero Spr) 1 appln PRN PRN EXT 10/16/16 16:30 11/15/16 16:29 Zolpidem Tartrate (Ambien Tab) 5 mg HSZ PRN PO 10/17/16 08:01 11/16/16 08:00 Simethicone (Mylicon Chew Tab) 80 mg QID PO 10/16/16 17:00 11/15/16 16:59 10/18/16 13:26 80 MG Diphenhydramine HCl (Benadryl Cap) 25 mg QID PRN PO 10/17/16 08:01 11/16/16 08:00 Diphenhydramine HCl (Benadryl Inj) 25 mg QID PRN IV 10/17/16 08:01 11/16/16 08:00 Senna 17.2 mg 17.2 mg HS PRN PO 10/16/16 16:30 11/15/16 16:29 Acetaminophen (Ofirmev Iv) 100 ml @ 400 mls/hr Q8H PRN IV 10/16/16 22:30 11/15/16 22:29 10/16/16 22:29 400 MLS/HR Albuterol (Ventolin Hfa Inhaler) 2 puffs QID PRN INH 10/17/16 09:15 11/16/16 09:14 10/17/16 14:07 2 PUFFS Sertraline HCl (Zoloft Tab) 50 mg QAM PO 10/18/16 08:00 11/17/16 07:59 10/18/16 08:29 50 MG Ioversol 125 ml 125 ml UD PRN IV 10/17/16 13:45 10/21/16 13:44 Azithromycin 250 mg/Dextrose 252.5 ml @ 125 mls/hr DAILY@1600 IV 10/18/16 16:00 10/25/16 15:59 Ceftriaxone Sodium/Dextrose (Rocephin Inj/D5 50ml) 60 ml @ 100 mls/hr DAILY@1500 IV 10/18/16 15:00 10/25/16 14:59 Ipratropium [place] (Atrovent 0.02% 0.5MG/2.5ML Neb) 0.5 mg QIDR INH 10/18/16 08:00 11/17/16 07:59 10/18/16 11:25 0.5 MG Meperidine HCl (Demerol Inj) 25 mg Q4H PRN IV 10/18/16 03:15 11/01/16 03:14 10/18/16 03:16 25 MG Buprenorphine HCl (Subutex) 8 mg BID@0600,1800 SL 10/18/16 18:00 11/17/16 17:59 Objective Vital Signs Date Time Temp Pulse Resp B/P Pulse Ox O2 Delivery O2 Flow Rate FiO2 10/18/16 11:25 67 16 93 Room Air 10/18/16 07:55 95 Room Air 10/18/16 07:55 36.7 61 24 115/78 95 Room Air 10/18/16 07:40 54 16 96 Room Air 10/18/16 01:34 75 91 Room Air 10/17/16 23:20 36.6 61 20 118/74 95 Room Air 10/17/16 23:20 95 Room Air 10/17/16 20:51 70 95 Room Air 35 10/17/16 16:30 97 Nasal Cannula 5.0 Humidified Oxygen 10/17/16 16:30 37.0 64 24 105/70 97 Nasal Cannula 5.0 Humidified Oxygen 10/17/16 16:04 74 95 Venturi Mask 35 Physical Exam General Appearance: WD/WN, no apparent distress Eyes: normal inspection ENT: normal ENT inspection, hearing grossly normal Neck: supple Respiratory/Chest: chest non-tender, lungs clear, normal breath sounds, no respiratory distress, no accessory muscle use Cardiovascular: regular rate, rhythm Abdomen: normal bowel sounds, non tender, + pertinent finding ( incision) Extremities: non-tender, no pedal edema Neurologic/Psychiatric: alert, normal mood/affect, oriented x 3 Skin: normal color Laboratory Results 10/18/16 08:16 10/18/16 08:16 Test 10/18/16 08:16 Red Blood Count 3.35 M/uL (4.2-5.4) Mean Corpuscular Volume 89.9 fL (80-100) Mean Corpuscular Hemoglobin 29.6 pg (25-34) Mean Corpuscular Hemoglobin Concent 32.9 g/dl (32-36) RDW Standard Deviation 47.5 fL (36.4-46.3) RDW Coefficient of Variation 14.4 % (11.5-14.5) Mean Platelet Volume 10.2 fL (7.4-10.4) Anion Gap 8.0 mmol/L (3-11) Est Creatinine Clear Calc Drug Dose 176.6 ml/min Estimated GFR () > 150.0 Estimated GFR (Non- 135.5 BUN/Creatinine Ratio 14.9 (10-20) Calcium Level 8.4 mg/dl (8.5-10.1) Assessment and Plan 21-year-old female with past medical history of marijuana and heroin use currently on Suboxone , status post section . Medicine was consulted due to shortness of breath, cough with hemoptysis post C- section. CT chest was done with concerns of PE but was found to have multilobular pneumonia. Acute hypoxic respiratory failure secondary to multifocal pneumonia and underlying Moderate COPD: - Chest CT: 1. There is no evidence of pulmonary embolus in the main, lobar, or segmental pulmonary arteries. 2. There is multifocal patchy airspace consolidation seen throughout both lungs and small pleural effusions. The appearance is typical for multifocal pneumonia. 3. Numerous small pulmonary cysts are similar to previous. - Continue Zithromax and Rocephin( compatible with ) -Atrovent and albuterol COPD with likely exacerbation sec to pneumonia: - History of smoking since age 10 - moderate copd per last PFT - 'persistent asthma', irregular follow-up with pulmonary - continue nebs Numerous small pulmonary cysts on CT: Stable Hx of substance abuse - on suboxone. Status post section with twin - Management per OB DVT prophylaxis: Encourage ambulation Full code Disposition: In L &D Resident Tracking Resident Involvement: Resident Care Provided Care Provided: Adult Hospital Medicine Reviewed: Pt Seen/Exam by Me History feeling much better today Constitutional: denies: fever Respiratory: positive: cough (phlegm with bloody stain), negative: short of breath Cardiovascular: denies chest pain General Appearance: no apparent distress Respiratory: no respiratory distress, rhonchi Cardiovascular: regular rate, rhythm Neurologic/Psychiatric: oriented x 3, other (somnolent) Skin Characteristics: warm/dry Assessment/Plan I have reviewed the medical record and performed a history and physical examination of this patient today. I have discussed the case with Dr. Rivas. The above note reflects my findings, conclusions, and recommendations.
[2016-10-18] MEDS ORDERED: CEFTRIAXONE SOD INJ 1,000 MG in DEXTROSE 5% 50ML 50 ML IV SCH (15:00)
--- NOTE | 2016-10-18 15:57 | Discharge Instructions ---
Discharge Instructions Date of Service October 18, 2016. Admission Reason for Admission: Blood Pressure Check Discharge Discharge Diagnosis / Problem: twin IUGR toxiemia pneumonia Discharge Goals Goal(s): Routine recovery after Activity Recommendations Activity Limitations: as noted below ACTIVITY RECOMMENDATIONS: * Gradual return to full activity over the next 2-3 weeks. * No lifting - nothing heavier than baby over the next 2-3 weeks. * Do not engage in vigorous exercise, sexual activity or sports for 6 weeks. * Do not drive or operate any motorized equipment for 14 days. * You may shower/bathe daily. DIET: Resume Previous Diet If Breast-feeding: * Increase caloric intake by 500 calories, eat 3 well balanced meals, 2 high protein snacks a day and drink 6-8 8oz. glasses of fluid per day. BREAST CARE: If you are not breast feeding: * Wear a supportive bra 24 hours a day for one to two weeks. * Avoid stimulating your breasts and nipples as much as possible during the first few weeks after delivery. * When taking a shower, have the warm water hit your back, not breasts. * When your breasts feel full, apply ice packs. Usually three to four times a day helps ease the discomfort. * Take a mild pain medication (Tylenol / Motrin) when you are uncomfortable. If breast feeding: * Use breast milk to lubricate nipples. Lansinoh cream may be used for sore nipples. You do not need to remove cream prior to breast feeding. If using a different brand of cream, check the label for directions regarding removal of cream prior to nursing. * Wear a supportive bra. * If having problems with breasts or breast feeding, call a sediment remediation consultant or your health care provider. VITAMINS: * One tablet daily. Continue taking while or until you have your check up in 6 weeks. SPECIAL CARE INSTRUCTIONS: * Vaginal rest (no tampons, douching, intercourse) until after doctor's visit. * control as discussed with doctor. * Verbalizes understanding of car seat law as reviewed with patient by nursing. * Car Seat hand-out given and reviewed with patient by nursing. * Shaken baby information reviewed with patient by nursing. Call you doctor if: * Heavy bleeding (saturating a pad an hour) or passing clots the size of your fist. Bleeding has a foul smelling odor. * A fever greater than 100.4 degrees F (38 degrees C) on two occasions four hours apart and/or chills. * Unusual pain in the pelvic or vaginal areas. Pain should improve each day . * Call the doctor for any increased redness, drainage or swelling around the incision and any pain unrelieved by prescribed pain medication. * Signs and symptoms of phlebitis(possible blood clots forming in the veins): leg pain, warm, red or swollen area on leg. * "Baby Blues" lasting longer than two weeks. If you have any questions or concerns, call your health care practitioner at [phone]. FOLLOW-UP VISIT: Follow-up visit for examination in 6 weeks. Incision check (staple removal) in 1 week. Please call office at [phone] if not already scheduled. . Instructions / Follow-Up Instructions / Follow-Up ACTIVITY RECOMMENDATIONS: * Gradual return to full activity over the next 2-3 weeks. * No lifting - nothing heavier than baby over the next 2-3 weeks. * Do not engage in vigorous exercise, sexual activity or sports until cleared by your physician. * Do not drive or operate any motorized equipment until cleared by your physician. * You may shower/bathe daily. DIET: Resume Previous Diet If Breast-feeding: * Increase caloric intake by 500 calories, eat 3 well balanced meals, 2 high protein snacks a day and drink 6-8 8oz. glasses of fluid per day. BREAST CARE: If you are not breast feeding: * Wear a supportive bra 24 hours a day for one to two weeks. * Avoid stimulating your breasts and nipples as much as possible during the first few weeks after delivery. * When taking a shower, have the warm water hit your back, not breasts. * When your breasts feel full, apply ice packs. Usually three to four times a day helps ease the discomfort. * Take a mild pain medication (Tylenol / Motrin) when you are uncomfortable. If breast feeding: * Use breast milk to lubricate nipples. Lansinoh cream may be used for sore nipples. You do not need to remove cream prior to breast feeding. If using a different brand of cream, check the label for directions regarding removal of cream prior to nursing. * Wear a supportive bra. * If having problems with breasts or breast feeding, call a sediment remediation consultant or your health care provider. OVER THE COUNTER MEDICATION: * For discomfort or pain, you may use Acetaminophen (Tylenol), Ibuprofen (Advil ), or Naproxen (Aleve) following the package directions. * For constipation you may use Colace following the package directions. SPECIAL CARE INSTRUCTIONS: * Vaginal rest (no tampons, douching, intercourse) until after doctor 's visit. * control as discussed with doctor. * Verbalizes understanding of car seat law as reviewed with patient nursing. * Car Seat hand-out given and reviewed with patient by nursing. * Shaken baby information reviewed with patient by nursing. Call you doctor if: * Temperature greater than or equal to 100.4 degrees F or 38.0 degrees C. Take your temperature twice daily for a week. * Bleeding becomes heavier than the heaviest part of your period - saturating a sanitary pad within an hour. * Passing large clots. * Bleeding has a foul smelling odor. * Signs and symptoms of phlebitis: leg pain, warm, red or swollen area on leg. * "Baby Blues" lasting longer than two weeks. ++ If you have had a and incision has increased pain, redness, swelling, presence of any drainage, or if the incision starts to open up. If you have any questions or concerns, call your health care practitioner at [phone]. FOLLOW-UP VISIT: Please call the office at to schedule a 6 week examination. Current Hospital Diet Patient's current hospital diet: Regular OB Diet Discharge Diet Recommended Diet: Regular Diet Procedures Procedures Performed: Primary lower uterine transverse caesarean section, delivery of live female child A at 1547, and live female child B at 1548. Pending Studies Studies pending at discharge: no Medical Emergencies . Who to Call and When: Medical Emergencies: If at any time you feel your situation is an emergency, please call 911 immediately. . Non-Emergent Contact Non-Emergency issues call your: [employer] Call Non-Emergent contact if: temperature is above 100.5 . . "Provider Documentation" section prepared by Bari Stanfodr. . VTE Core Measure Inpt VTE Proph given/why not?: Treatment not indicated
[2016-10-18] MEDS ORDERED: AZITHROMYCIN IV 250 MG in DEXTROSE 5% 250ML 250 ML IV SCH (16:00)
[2016-10-18 16:15] VITALS: BP 132/84; PULSE 67; TEMP 37.1; O2SAT 96
--- NOTE | 2016-10-18 16:16 | PROGRESS NOTE ---
DATE: 10/18/2016 DATE: 10/18/2016. Mrs. Wynne has decided to sign herself out. We discussed with her that we recommended she stay. She is being treated with 2 drugs for pneumonia. She is extremely weak. I discussed that the risks of bleeding and the fact that she could get sicker or even from pneumonia and that it would be in her best interest to stay as far as her relationship with her children. I did this in the presence of the nurse and essentially tried my best and she said that she cannot stay, that she cannot stand to be in the hospital with infants knowing that she is not going to get to see her own. I did give her a prescription for Augmentin and encouraged her to take that medication when she goes home so at least she will have some type of treatment and to call if she has any problems.
[2016-10-18] MEDS ORDERED: BISACODYL 10 MG SUPP PR PRN (16:30)
[2016-10-18] MEDS ORDERED: BUPRENORPHINE HCL 8 MG SUBL SL SCH (18:00)
[2016-10-18 18:49] VITALS: BP_DIAS 84; PULSE 67; TEMP 37.1
--- NOTE | 2016-10-30 10:31 | DISCHARGE SUMMARY ---
Ms. Wynne was admitted, twin intrauterine , presenting twin in breech presentation. She is hepatitis C positive. She is a smoker. She is also a heroin addict who is maintained on Subutex 8 mg twice a day. We were following her with NSTs and ultrasounds, and her last ultrasound she had prior to delivery had failed to show any growth in the abdomen of the presenting twin. She was followed closely over the weekend. She came in on Sunday, she said she did not feel well. We noted that her diastolic had risen over 15 points and she was +1 to 2 proteinuria. She was then admitted with the following conditions: Twin intrauterine , breech presentation twin A, hepatitis C, smoker, intrauterine growth retardation, heroin addiction, on Subutex 8 mg twice a day. She underwent primary low-segment section at about 36 weeks and 5 days. At the time of , there was a nuchal cord around each and each infant weighed approximately 4 pounds 11 ounces. Postoperatively, we did have some problems maintaining her oxygen sats and we got a consult with the hospitalist. He did a helical CT which showed no PE but showed pneumonia. She was then started on 2 drugs, and on the 2nd day of treatment, she was told by social sciences professor that she would not be able to take her twins home. She got very distraught and stated that she could not stay in the hospital hearing the children next door. Knowing that she would not be able to take them home, we offered to move her to a different room, but she was very upset and she said she wanted to sign herself out. We talked her in to staying for her final dose of antibiotics which she did at noon. I did give her a prescription for Augmentin 875 mg twice a day and encouraged her to call the office if she had any problems and also we would remove the sutures in the office. Her preoperative hemoglobin was 12.0, hematocrit 35.3. Postoperatively, hemoglobin fell to 9.9, hematocrit 38.1. As previously stated, the patient signed herself out against medical advice. We tried our best to dissuade her from this decision and tried to treat her as best we could given the situation of her leaving the hospital.
== END 2016-10-18 19:10 | disposition left against medical advice (07) | DRG 765 ==
LOC: C.LD 10:33 → C.OPB 10:33 → C.LD 11:44 → C.OPB 11:44 → C.OBG 21:03 → EDSTATUS 10-25 07:30
PROVIDERS: ADMIT Obstetrics & Gynecology; ATTEND Obstetrics & Gynecology
PROC: 10D00Z1 Extraction of Products of Conception, Low, Open Approach (ICD-10-PCS; principal; 2016-10-16 14:56)
DX: O32.1XX1 Maternal care for breech presentation, fetus 1 (principal); J18.9 Pneumonia, unspecified organism; O98.42 Viral hepatitis complicating childbirth; O14.94 Unspecified pre-eclampsia, complicating childbirth; F11.23 Opioid dependence with withdrawal; J96.01 Acute respiratory failure with hypoxia; O99.52 Diseases of the respiratory system complicating childbirth; J44.1 Chronic obstructive pulmonary disease with (acute) exacerbation; O30.003 Twin pregnancy, unspecified number of placenta and unspecified number of amniotic sacs, third trimester; O36.5932 Maternal care for other known or suspected poor fetal growth, third trimester, fetus 2; O36.5931 Maternal care for other known or suspected poor fetal growth, third trimester, fetus 1; O99.324 Drug use complicating childbirth; O69.81X1 Labor and delivery complicated by cord around neck, without compression, fetus 1; O69.81X2 Labor and delivery complicated by cord around neck, without compression, fetus 2; O99.334 Smoking (tobacco) complicating childbirth; B19.20 Unspecified viral hepatitis C without hepatic coma; F17.200 Nicotine dependence, unspecified, uncomplicated; Z79.899 Other long term (current) drug therapy; F12.21 Cannabis dependence, in remission; Z3A.36 36 weeks gestation of pregnancy; J98.4 Other disorders of lung; Z37.2 Twins, both liveborn

== ENCOUNTER 2017-07-10 04:48 | Emergency (ER) | payer OTHER ==
[~2017-07-10] VITALS: Ht 167.6 cm; Wt 60.1 kg
[~2017-07-10 04:48] MED LIST changes: -CEFOXITIN IV 2,000 MG in DEXTROSE 5% 50ML 50 ML IV SCH
[2017-07-10 04:51] VITALS: TEMP 36.7; Ht 167.6 cm; Wt 60.1 kg
[2017-07-10] MEDS ORDERED: SODIUM CHLORIDE 0.9% 1000ML 1,000 ML IV STA (05:05)
[2017-07-10] MEDS ORDERED: KETOROLAC TROMETHAMINE 30 MG/ML VIAL IV STA (05:05)
[2017-07-10] MEDS ORDERED: DiphenhydrAMINE HCL 50 MG/ML VIAL IV STA (05:05)
[2017-07-10 05:32] LABS: BASO % 0.1 %; BASO ABS # 0.01 K/uL (0-0.2); EOS % 1.4 %; EOS ABS # 0.12 K/uL (0-0.5); HEMATOCRIT 43.3 % (37-47); HEMOGLOBIN 14.8 g/dL (12.0-16.0); IG# 0.02 K/uL (0.00-0.02); LYMPH % 26.1 %; LYMPH ABS # 2.21 K/uL (1.2-3.4); MEAN CELL VOLUME 87.1 fL (80-100); MEAN CORPUSCULAR HEMOGLOBIN 29.8 pg (25-34); MEAN CORPUSCULAR HGB CONC 34.2 g/dl (32-36); MONO % 7.1 %; NEUT % 65.1 %; NEUT ABS # 5.52 K/uL (1.4-6.5); PLATELET COUNT 208 K/uL (130-400); RED CELL DISTRIBUTION WIDTH CV 13.6 % (11.5-14.5); RED CELL DISTRIBUTION WIDTH SD 43.4 fL (36.4-46.3); WHITE BLOOD COUNT 8.48 K/uL (4.8-10.8)
--- NOTE | 2017-07-10 05:52 | EMERGENCY ROOM VISIT NOTE ---
History Report prepared by Derekibrafat: Sukhwinder Shi Under the Supervision of: Dr. Jones Hightower M.D. First contact with patient: 04:55 Chief Complaint: DIZZY Stated Complaint: LIGHT HEADED,FEELING WEAK,EARSRINGING,CHEST PAIN History of Present Illness The patient is a 22 year old female who presents to the Emergency Room with complaints of waxing and waning lightheadedness beginning today. Her symptoms are improved with sitting down. The patient states that she took four 1 mg tablets of Melatonin tonight. She normally takes one 5 mg tablet of Melatonin. She notes that she has not been sleeping much recently. The patient states that she had episodes where she "blacked out" at work today. She also complains of chest pain, but states that it has been present for "a long time". She states that she has some pain in her right abdomen as well. The patient notes that her urine occasionally smells abnormal. She states that she has been eating normally. She denies recent drug or alcohol use. The patient denies fevers, or runny nose. Source of History: patient Onset: Today Quality: other (lightheadedness) Timing: waxes/wanes Modifying Factors (Relieving): other (sitting down) Associated Symptoms: + chest pain, + abdominal pain (right side), + urinary symptoms (abnormal smell occasionally), No fevers Note: The patient denies runny nose. Review of Systems See HPI for pertinent positives & negatives. A total of 10 systems reviewed and were otherwise negative. Past Medical & Surgical Medical Problems: (1) Asthma (2) Bronchitis (3) Chest pain (4) Clostridium difficile colitis (5) COPD (chronic obstructive pulmonary disease) (6) Depression with suicidal ideation (7) Depression with suicidal ideation (8) Gestational edema with proteinuria in third trimester (9) Kidney infection (10) (11) Toxemia of , antepartum (12) Twin (13) Vasovagal near syncope (14) Vasovagal near syncope (15) Vomiting Surgical Problems: (1) [place] teeth removed Family History Diabetes mellitus FH: cancer Hypertension Social History Smoking Status: Current Every Day Smoker Alcohol Use: occasionally Drug Use: heroin Marital Status: single Housing Status: unknown Occupation Status: unemployed Current/Historical Medications No Active Prescriptions or Reported Meds Allergies Coded Allergies: No Known Allergies (Unverified , 07/10/17) Physical Exam Vital Signs Date Time Temp Pulse Resp B/P (MAP) Pulse Ox O2 Delivery O2 Flow Rate FiO2 07/10/17 06:23 52 18 111/77 98 Room Air 07/10/17 04:51 36.7 92 18 105/70 98 Room Air Physical Exam GENERAL: Patient is anxious appearing and in minimal distress. HEENT: No acute trauma, normocephalic atraumatic, mucous membranes moist, no scleral icterus. Clear rhinorrhea bilaterally. NECK: No stridor, no adenopathy, no meningismus, trachea is midline. LUNGS: No dyspnea. Clear to auscultation and equal bilaterally. No wheeze, no rhonchi. HEART: Regular rate and rhythm. No murmurs, rubs, gallops appreciated. ABDOMEN: Soft, nontender, bowel sounds positive, no masses appreciated, no peritonitis. BACK: No midline tenderness, no CVA tenderness EXTREMITIES: Normal motion all extremities, no cyanosis, no edema. NEUROLOGIC: Alert and oriented, no acute motor or sensory deficits, no focal weakness, cranial nerves grossly intact. SKIN: No rash, no jaundice, no diaphoresis. Medical Decision & Procedures Laboratory Results 07/10/17 05:20 Red Blood Count 4.97, Mean Corpuscular Volume 87.1, Mean Corpuscular Hemoglobin 29.8, Mean Corpuscular Hemoglobin Concent 34.2, Mean Platelet Volume 10.0, Neutrophils (%) (Auto) 65.1, Lymphocytes (%) (Auto) 26.1, Monocytes (%) (Auto) 7.1, Eosinophils (%) (Auto) 1.4, Basophils (%) (Auto) 0.1, Neutrophils # (Auto) 5.52, Lymphocytes # (Auto) 2.21, Monocytes # (Auto) 0.60, Eosinophils # (Auto) 0.12, Basophils # (Auto) 0.01 07/10/17 05:20 Test 07/10/17 05:15 07/10/17 05:20 Urine Color YELLOW Urine Appearance CLEAR (CLEAR) Urine pH 6.5 (4.5-7.5) Urine Specific [place] 1.011 (1.000-1.030) Urine Protein NEG (NEG) Urine Glucose (UA) NEG (NEG) Urine Ketones NEG (NEG) Urine Occult Blood TRACE (NEG) Urine Nitrite NEG (NEG) Urine Bilirubin NEG (NEG) Urine Urobilinogen NEG (NEG) Urine Leukocyte Esterase TRACE (NEG) Urine WBC (Auto) 1-5 /hpf (0-5) Urine RBC (Auto) 0-4 /hpf (0-4) Urine Hyaline Casts (Auto) 0 /lpf (0-5) Urine Epithelial Cells (Auto) 20-30 /lpf (0-5) Urine Bacteria (Auto) NEG (NEG) Urine Test NEG (NEG) White Blood Count 8.48 K/uL (4.8-10.8) Red Blood Count 4.97 M/uL (4.2-5.4) Hemoglobin 14.8 g/dL (12.0-16.0) Hematocrit 43.3 % (37-47) Mean Corpuscular Volume 87.1 fL (80-100) Mean Corpuscular Hemoglobin 29.8 pg (25-34) Mean Corpuscular Hemoglobin Concent 34.2 g/dl (32-36) Platelet Count 208 K/uL (130-400) Mean Platelet Volume 10.0 fL (7.4-10.4) Neutrophils (%) (Auto) 65.1 % Lymphocytes (%) (Auto) 26.1 % Monocytes (%) (Auto) 7.1 % Eosinophils (%) (Auto) 1.4 % Basophils (%) (Auto) 0.1 % Neutrophils # (Auto) 5.52 K/uL (1.4-6.5) Lymphocytes # (Auto) 2.21 K/uL (1.2-3.4) Monocytes # (Auto) 0.60 K/uL (0.11-0.59) Eosinophils # (Auto) 0.12 K/uL (0-0.5) Basophils # (Auto) 0.01 K/uL (0-0.2) RDW Standard Deviation 43.4 fL (36.4-46.3) RDW Coefficient of Variation 13.6 % (11.5-14.5) Immature Granulocyte % (Auto) 0.2 % Immature Granulocyte # (Auto) 0.02 K/uL (0.00-0.02) Anion Gap 8.0 mmol/L (3-11) Est Creatinine Clear Calc Drug Dose 112.7 ml/min Estimated GFR () 135.9 Estimated GFR (Non- 117.2 BUN/Creatinine Ratio 14.0 (10-20) Calcium Level 8.5 mg/dl (8.5-10.1) Total Creatine Kinase 71 U/L (26-192) Troponin I < 0.015 ng/ml (0-0.045) Chemistry Specimen Hemolysis Laboratory results as reviewed by me. Medications Administered Medications (Trade) Dose Ordered Sig/Omar Route Start Time Stop Time Status Last Admin Dose Admin Sodium Chloride 1,000 ml @ 999 mls/hr Q1H1M STAT IV 07/10/17 05:05 07/10/17 06:05 DC 07/10/17 05:05 999 MLS/HR Diphenhydramine HCl (Benadryl Inj) 50 mg NOW STAT IV 07/10/17 05:05 07/10/17 05:06 DC 07/10/17 05:14 50 MG Ketorolac Tromethamine (Toradol Inj) 30 mg NOW STAT IV 07/10/17 05:05 07/10/17 05:06 DC 07/10/17 05:14 30 MG ECG Indication: other (lightheadedness) Rate (beats per minute): 65 Rhythm: normal sinus Findings: no acute ischemic change, no ectopy ED Course 0500: The patient was evaluated in room A11B. A complete history and physical exam was performed. 0505: Ordered Toradol Inj 30 mg IV, Benadryl Inj 50 mg IV, Sodium Chloride 1000 ml @ 999 mls/hr IV. 0630: Reevaluated the patient. Discussed results and discharge instructions: she verbalized understanding and agreement. The patient is ready for discharge. Medical Decision Differential: Sepsis, Infectious (UTI/Pneumonia/Meningitis/etc), Metabolic/ Electrolyte Abnormality, Cardiac, Dehydration, Anemia, Hepatic, Endocrine, Toxicologic, Neurologic, amongst other pathologies entertained. 22 yr old female with runny nose, cough, body aches/pains, fatigue, and generalized weakness. She is a bit anxious about this all and with wide variety of complaints felt reasonable checking a few labs which were unremarkable with clear urine and normal EKG. Feeling better, sleeping and in no distress. She is not septic nor toxic appearing. She has no evidence of PE, ACS, Arrhythmia. No neuro deficits and I do not feel neuro imaging indication. Abdomen is soft, non-tender. Urine is clean. Chest exam benign and I feel imaging not indicated. Suspect she is coming down with the flu which is quite disseminated throughout area. We discussed symptoms requiring return. Medication Reconcilliation Current Medication List: was personally reviewed by me Blood Pressure Screening Patient's blood pressure: Normal blood pressure Blood pressure disposition: Did not require urgent referral Impression Primary Impression: Upper respiratory infection Additional Impressions: Dehydration Fatigue Scribe Attestation The scribe's documentation has been prepared under my direction and personally reviewed by me in its entirety. I confirm that the note above accurately reflects all work, treatment, procedures, and medical decision making performed by me. Departure Information Dispostion Home / Self-Care Prescriptions No Active Prescriptions or Reported Meds Referrals Primary Care Provider Patient Instructions ED Flu, My [facility] Problem Qualifiers
[2017-07-10 06:07] LABS: BLOOD UREA NITROGEN 10 mg/dl (7-18); CALCIUM 8.5 mg/dl (8.5-10.1); CARBON DIOXIDE 25 mmol/L (21-32); CREATININE 0.72 mg/dl (0.60-1.20); GLUCOSE 98 mg/dl (70-99); POTASSIUM 3.8 mmol/L (3.5-5.1); SODIUM 137 mmol/L (136-145)
[2017-07-10 06:23] VITALS: BP 111/77; PULSE 52; O2SAT 98
== END 2017-07-10 06:52 | disposition home or self-care (01) ==
LOC: C.EDB 04:50 → C.EDA 06:52
DX: J06.9 Acute upper respiratory infection, unspecified (principal); E86.0 Dehydration; F17.200 Nicotine dependence, unspecified, uncomplicated; F11.90 Opioid use, unspecified, uncomplicated; J44.9 Chronic obstructive pulmonary disease, unspecified; Z83.3 Family history of diabetes mellitus; Z80.9 Family history of malignant neoplasm, unspecified; Z82.49 Family history of ischemic heart disease and other diseases of the circulatory system

== ENCOUNTER 2017-09-11 16:56 | Emergency (ER) | payer OTHER ==
[~2017-09-11] VITALS: Ht 167.6 cm; Wt 64.8 kg
[2017-09-11 16:58] VITALS: TEMP 36.4; Ht 167.6 cm; Wt 64.8 kg
[2017-09-11] MEDS ORDERED: DiphenhydrAMINE HCL 50 MG/ML VIAL IV STA (17:07)
[2017-09-11] MEDS ORDERED: PROCHLORPERAZINE 5 MG/ML 2 ML VIAL IV STA (17:07)
[2017-09-11] MEDS ORDERED: DEXAMETHASONE SOD INJ 4 MG/ML VIAL IV STA (17:07)
[2017-09-11] MEDS ORDERED: MoRPHine SULFATE 4 MG/ML 1 ML CARP\\VIAL IV STA ×2 (17:07→18:24)
[2017-09-11] MEDS ORDERED: SODIUM CHLORIDE 0.9% 1000ML 500 ML IV STA (17:07)
--- NOTE | 2017-09-11 17:22 | EMERGENCY ROOM VISIT NOTE ---
History Report prepared by Steve: Abraham Sullivan Under the Supervision of: Dr. Kvng Lafleur M.D. First contact with patient: 17:05 Chief Complaint: HEADACHE Stated Complaint: HEADACHE History of Present Illness The patient is a 22 year old female who presents to the Emergency Room with complaints of constant headache that began an hour ago. She rates her pain as a 10/10 in severity. She states that her symptoms are worsened with light. The patient reports that she has been febrile for the last couple of days with flu- like symptoms. The patient states that today she was sitting down when she developed a sudden headache located in her forehead. She reports that since the onset of her headache, she has been experiencing back pain and nausea. The patient states that she took Excedrin for her headache, but reports it had worsened her symptoms. She denies falling, hitting her head, weakness, vomiting , previous imaging of her head, and a history of a sinus infection. The patient reports a history of tachycardia and COPD. Source of History: patient Onset: an hour ago Position: head Symptom Intensity: 10/10 Timing: constant Modifying Factors (Worsening): other (light, Excedrin) Associated Symptoms: + fevers (febrile), + nausea, + back pain, No vomiting , No weakness Review of Systems See HPI for pertinent positives & negatives. A total of 10 systems reviewed and were otherwise negative. Past Medical & Surgical Medical Problems: (1) Asthma (2) Bronchitis (3) Chest pain (4) Clostridium difficile colitis (5) COPD (chronic obstructive pulmonary disease) (6) Depression with suicidal ideation (7) Depression with suicidal ideation (8) Gestational edema with proteinuria in third trimester (9) Kidney infection (10) (11) Toxemia of , antepartum (12) Twin (13) Vasovagal near syncope (14) Vasovagal near syncope (15) Vomiting Surgical Problems: (1) [place] teeth removed Family History Diabetes mellitus FH: cancer Hypertension Social History Smoking Status: Current Every Day Smoker Alcohol Use: occasionally Drug Use: heroin Marital Status: single Housing Status: unknown Occupation Status: unemployed Current/Historical Medications Scheduled Amoxicillin & Pot Clavulanate (Augmentin 875-125 mg), 875 MG PO BID Chlorpromazine Hcl (Chlorpromazine Hcl), 200 MG PO BID Lisdexamfetamine Dimesylate (Vyvanse), 40 MG PO DAILY Mirtazapine (Remeron), 30 MG PO DAILY Prednisone (Prednisone), 0 PO DAILY Scheduled PRN Kbytvmp-Opjkoiyepquvr-Kdvaurpx (Excedrin Extra Strength), 1 TAB PO UD PRN for Headache or Pain Allergies Coded Allergies: No Known Allergies (Unverified , 09/11/17) Physical Exam Vital Signs Date Time Temp Pulse Resp B/P (MAP) Pulse Ox O2 Delivery O2 Flow Rate FiO2 09/11/17 18:15 116 17 126/77 96 Room Air 09/11/17 16:58 36.4 110 20 154/100 98 Room Air Physical Exam GENERAL: Patient is in significant distress secondary to pain. HEENT: No acute trauma, normocephalic atraumatic, mucous membranes dry, no nasal congestion, no scleral icterus, pupils equal and reactive to light. NECK: No stridor, no adenopathy, no meningismus, trachea is midline. LUNGS: Clear to auscultation bilaterally, no wheeze, no rhonchi, breath sounds equal. HEART: Without murmurs gallops or rubs, regular rate and rhythm. ABDOMEN: Soft, nontender, bowel sounds positive, no hernias, no peritonitis. EXTREMITIES: No cyanosis or edema, full range of motion of all the joints without pain or difficulty, no signs for acute trauma. NEUROLOGIC: Oriented x 3, no acute motor or sensory deficits, no focal weakness. SKIN: No rash, no jaundice, no diaphoresis. Medical Decision & Procedures ER Provider Diagnostic Interpretation: Radiology results as stated below per my review and radiologist interpretation: HEAD WITHOUT CONTRAST (CT) CT DOSE: 537.48 mGy.cm HISTORY: Mental status change Evaluate for hemorrhage or pathology TECHNIQUE: Multiaxial CT images of the head were performed without the use of intravenous contrast. A dose lowering technique was utilized adhering to the principles of ALARA. Comparison: None. Findings: Opacification of the sphenoid air cells. All remaining sinuses are clear. The calvarium and skull base are intact. The ventricles and sulci are within normal limits. There is no mass, hematoma, midline shift, or acute infarct. Impression: No acute intracranial abnormality. Opacified sphenoid air cells. The above report was generated using voice recognition software. It may contain grammatical, syntax or spelling errors. Electronically signed by: Jeff Antonio M.D. 09/11/2017 6:13 PM Dictated Date/Time: 09/11/2017 6:10 PM Laboratory Results 09/11/17 17:35 Red Blood Count 4.90, Mean Corpuscular Volume 88.0, Mean Corpuscular Hemoglobin 30.2, Mean Corpuscular Hemoglobin Concent 34.3, Mean Platelet Volume 9.8, Neutrophils (%) (Auto) 84.8, Lymphocytes (%) (Auto) 12.6, Monocytes (%) (Auto) 0.5, Eosinophils (%) (Auto) 0.2, Basophils (%) (Auto) 0.0, Neutrophils # (Auto) 7.07, Lymphocytes # (Auto) 1.05, Monocytes # (Auto) 0.04, Eosinophils # (Auto) 0.02, Basophils # (Auto) 0.00 09/11/17 17:35 Test 09/11/17 17:35 09/11/17 18:40 White Blood Count 8.34 K/uL (4.8-10.8) Red Blood Count 4.90 M/uL (4.2-5.4) Hemoglobin 14.8 g/dL (12.0-16.0) Hematocrit 43.1 % (37-47) Mean Corpuscular Volume 88.0 fL (80-100) Mean Corpuscular Hemoglobin 30.2 pg (25-34) Mean Corpuscular Hemoglobin Concent 34.3 g/dl (32-36) Platelet Count 141 K/uL (130-400) Mean Platelet Volume 9.8 fL (7.4-10.4) Neutrophils (%) (Auto) 84.8 % Lymphocytes (%) (Auto) 12.6 % Monocytes (%) (Auto) 0.5 % Eosinophils (%) (Auto) 0.2 % Basophils (%) (Auto) 0.0 % Neutrophils # (Auto) 7.07 K/uL (1.4-6.5) Lymphocytes # (Auto) 1.05 K/uL (1.2-3.4) Monocytes # (Auto) 0.04 K/uL (0.11-0.59) Eosinophils # (Auto) 0.02 K/uL (0-0.5) Basophils # (Auto) 0.00 K/uL (0-0.2) RDW Standard Deviation 47.6 fL (36.4-46.3) RDW Coefficient of Variation 14.8 % (11.5-14.5) Immature Granulocyte % (Auto) 1.9 % Immature Granulocyte # (Auto) 0.16 K/uL (0.00-0.02) Anion Gap 8.0 mmol/L (3-11) Est Creatinine Clear Calc Drug Dose 106.8 ml/min Estimated GFR () 127.2 Estimated GFR (Non- 109.8 BUN/Creatinine Ratio 8.8 (10-20) Calcium Level 8.9 mg/dl (8.5-10.1) Urine Color YELLOW Urine Appearance CLEAR (CLEAR) Urine pH 5.0 (4.5-7.5) Urine Specific [place] 1.011 (1.000-1.030) Urine Protein NEG (NEG) Urine Glucose (UA) NEG (NEG) Urine Ketones NEG (NEG) Urine Occult Blood TRACE (NEG) Urine Nitrite POS (NEG) Urine Bilirubin NEG (NEG) Urine Urobilinogen NEG (NEG) Urine Leukocyte Esterase NEG (NEG) Urine WBC (Auto) 1-5 /hpf (0-5) Urine RBC (Auto) 0-4 /hpf (0-4) Urine Hyaline Casts (Auto) 1-5 /lpf (0-5) Urine Epithelial Cells (Auto) >30 /lpf (0-5) Urine Bacteria (Auto) 4+ (NEG) Laboratory results reviewed by me. Medications Administered Medications (Trade) Dose Ordered Sig/Omar Route Start Time Stop Time Status Last Admin Dose Admin Sodium Chloride 500 ml @ 999 mls/hr Q31M STAT IV 09/11/17 17:07 09/11/17 17:37 DC 09/11/17 17:07 999 MLS/HR Prochlorperazine Edisylate (Compazine Inj) 10 mg NOW STAT IV 09/11/17 17:07 09/11/17 17:11 DC 09/11/17 17:37 10 MG Diphenhydramine HCl (Benadryl Inj) 50 mg NOW STAT IV 09/11/17 17:07 09/11/17 17:11 DC 09/11/17 17:37 50 MG Dexamethasone Sodium Phosphate (Decadron Inj) 10 mg NOW STAT IV 09/11/17 17:07 09/11/17 17:11 DC 09/11/17 17:37 10 MG Morphine Sulfate (MoRPHine SULFATE INJ) 4 mg NOW STAT IV 09/11/17 17:07 09/11/17 17:11 DC 09/11/17 17:37 4 MG Ampicillin Sodium/ Sulbactam Sodium 3000 mg/Sodium Chloride 108 ml @ 200 mls/hr ONE ONCE IV 09/11/17 18:30 09/11/17 19:02 DC 09/11/17 19:19 200 MLS/HR Ketorolac Tromethamine (Toradol Inj) 30 mg NOW STAT IV 09/11/17 18:24 09/11/17 18:26 DC 09/11/17 18:40 30 MG Morphine Sulfate (MoRPHine SULFATE INJ) 4 mg NOW STAT IV 09/11/17 18:24 09/11/17 18:26 DC 09/11/17 18:42 4 MG Sodium Chloride 500 ml @ 999 mls/hr Q31M STAT IV 09/11/17 18:24 09/11/17 18:54 DC 09/11/17 18:43 999 MLS/HR ED Course 170: The patient was evaluated in room A12B. A complete history and physical exam was performed. 170: Ordered Morphine Sulfate 4 mg IV, Decadron Injection 10 mg IV, Benadryl Injection 50 mg IV, Compazine Injection 10 mg IV, Sodium Chloride 500 ml @ 999 mls/hr IV. 1823: I reevaluated the patient and she doing better. She reports that she has been experiencing intermittent headaches like this for last couple of months coming. She states that this one was more severe, which is why she came to the ER. 1824: Ordered Sodium Chloride 500 ml @ 999 mls/hr IV, Morphine Sulfate 4 mg IV, Toradol Injection 30 mg IV. 0: Ordered Ampicillin Sodium/ Sulbactam Sodium 3000 mg/ Sodium Chloride 108 ml @ 200 mls/hr IV. 7: Reevaluated the patient. Discussed results and discharge instructions: She verbalized understanding and agreement. The patient is ready for discharge. 0: Ordered Oxycodone HCl 1 homepack PO. Medical Decision The patient is a 22 year old female who presents to the Emergency Room with complaints of constant headache that began an hour ago. Differential diagnoses considered include sinus headache, intracranial bleeding, dehydration, migraine , viral illness, trauma, and intracranial mass. There is no leukocytosis or concerning anemia. No significant electrolyte abnormality or kidney failure. Urinalysis suggests infection versus contamination, a urine culture is pending. Brain CT shows a sphenoid sinusitis , no acute bleed or mass-effect. On my exam, there was no meningismus. The patient was not febrile. No focal neurologic deficits. Patient presents with several days of flulike symptoms. She developed a headache today that became quite severe. She received IV saline, IV Compazine, IV Benadryl, IV morphine. She was given IV Decadron. She received a second dose of IV morphine and then also IV Toradol. She was given IV Unasyn. The patient feels markedly better. I had a long talk with her. She has had intermittent headaches that have been fairly severe over the last few months although she thought today's was even more severe. She was diagnosed with the flu recently at her doctor's office. Based on her history and exam, I do think she has sinusitis. I think this has caused the severe headache. She has no meningismus, she is not febrile. She feels markedly improved since being treated. I did discuss a lumbar puncture with her, at this point, we will hold on this testing. Patient was encouraged to return here for escalating or worsening symptoms. She is being discharged with prednisone, a few OxyIR, Augmentin. [place] Drug Monitoring Program Search Results: patient reviewed within database, no issues identified Medication Reconcilliation Current Medication List: was personally reviewed by me Blood Pressure Screening Patient's blood pressure: Elevated blood pressure Blood pressure disposition: Elevated BP felt to be situational Impression Primary Impression: Headache Additional Impression: Sinusitis Scribe Attestation The scribe's documentation has been prepared under my direction and personally reviewed by me in its entirety. I confirm that the note above accurately reflects all work, treatment, procedures, and medical decision making performed by me. Departure Information Dispostion Home / Self-Care Prescriptions Amoxicillin & Pot Clavulanate (Augmentin 875-125 mg) 1 Tab Tab 875 MG PO BID for 10 Days, #20 TAB Prov: Kvng Lafleur M.D. 09/11/17 Prednisone (Prednisone) 20 Mg Tab 0 PO DAILY, #14 TAB 3 TABS DAILY FOR 2 DAYS, THEN 2 TABS DAILY FOR 2 DAYS, THEN 1 TAB DAILY FOR 2 DAYS, THEN 1/2 TAB DAILY FOR 2 DAYS. Prov: Kvng Lafleur M.D. 09/11/17 Referrals No Doctor, Assigned (PCP) Forms HOME CARE DOCUMENTATION FORM, IMPORTANT VISIT INFORMATION Patient Instructions My [facility] Additional Instructions fluids rest otc pain meds sudafed otc for congestion prednisone as directed augmentin 2x per day for 10 day oxy ir 1 tab as needed every 4 hours return for worsening symptoms, fever or if not improving as we discussed Problem Qualifiers
[2017-09-11 17:47] LABS: EOS % 0.2 %; EOS ABS # 0.02 K/uL (0-0.5); HEMATOCRIT 43.1 % (37-47); HEMOGLOBIN 14.8 g/dL (12.0-16.0); IG# 0.16 K/uL (0.00-0.02); LYMPH % 12.6 %; LYMPH ABS # 1.05 K/uL (1.2-3.4); MEAN CORPUSCULAR HEMOGLOBIN 30.2 pg (25-34); MEAN CORPUSCULAR HGB CONC 34.3 g/dl (32-36); MEAN PLATELET VOLUME 9.8 fL (7.4-10.4); MONO % 0.5 %; MONO ABS # 0.04 K/uL (0.11-0.59); NEUT % 84.8 %; NEUT ABS # 7.07 K/uL (1.4-6.5); PLATELET COUNT 141 K/uL (130-400); RED CELL DISTRIBUTION WIDTH CV 14.8 % (11.5-14.5); RED CELL DISTRIBUTION WIDTH SD 47.6 fL (36.4-46.3); WHITE BLOOD COUNT 8.34 K/uL (4.8-10.8)
[2017-09-11 18:07] LABS: CALCIUM 8.9 mg/dl (8.5-10.1); CREATININE 0.76 mg/dl (0.60-1.20); POTASSIUM 3.3 mmol/L (3.5-5.1)
[2017-09-11] MEDS ORDERED: ASPI-391 PO (18:10)
[2017-09-11] MEDS ORDERED: LISD40CA PO (18:10)
[2017-09-11] MEDS ORDERED: MIRT30TA3 PO (18:10)
[2017-09-11] MEDS ORDERED: CHLO1TAB PO (18:10)
--- NOTE | 2017-09-11 18:14 | DIAGNOSTIC IMAGING REPORT ---
HEAD WITHOUT CONTRAST (CT) CT DOSE: 537.48 mGy.cm HISTORY: Mental status change Evaluate for hemorrhage or pathology TECHNIQUE: Multiaxial CT images of the head were performed without the use of intravenous contrast. A dose lowering technique was utilized adhering to the principles of ALARA. Comparison: None. Findings: Opacification of the sphenoid air cells. All remaining sinuses are clear. The calvarium and skull base are intact. The ventricles and sulci are within normal limits. There is no mass, hematoma, midline shift, or acute infarct. Impression: No acute intracranial abnormality. Opacified sphenoid air cells. The above report was generated using voice recognition software. It may contain grammatical, syntax or spelling errors. Electronically signed by: Jeff Antonio M.D. 09/11/2017 6:13 PM Dictated Date/Time: 09/11/2017 6:10 PM
[2017-09-11] MEDS ORDERED: SODIUM CHLORIDE 0.9% 500ML 500 ML IV STA (18:24)
[2017-09-11] MEDS ORDERED: KETOROLAC TROMETHAMINE 30 MG/ML VIAL IV STA (18:24)
[2017-09-11] MEDS ORDERED: AMPICILLIN/SULBACTAM SOD INJ 3,000 MG in SODIUM CHLORIDE 0.9% 100ML 100 ML IV ONE (18:30)
[2017-09-11] MEDS ORDERED: OXYCODONE IR HOME PACK PO ONE (19:30)
[2017-09-11] MEDS ORDERED: PRED20TA PO (19:33)
[2017-09-11] MEDS ORDERED: AMOX875T PO (19:33)
[2017-09-11 20:02] VITALS: BP 134/88; PULSE 128; O2SAT 99
--- NOTE | 2017-09-13 12:49 | Pharmacy Progress Note ---
ED Pharmacist Culture FollowUp Date of Service: Sep 13, 2017. Patient was sent home with a prescription for augmentin 875 BID X 10 days, which should cover the E. coli growing from the patient's urine culture.
== END 2017-09-11 20:00 | disposition home or self-care (01) ==
LOC: C.EDB 16:57 → C.EDA 20:00
DX: R51 Headache (principal); J32.3 Chronic sphenoidal sinusitis; J44.9 Chronic obstructive pulmonary disease, unspecified; F32.9 Major depressive disorder, single episode, unspecified; F17.200 Nicotine dependence, unspecified, uncomplicated; Z86.59 Personal history of other mental and behavioral disorders; Z82.49 Family history of ischemic heart disease and other diseases of the circulatory system

== ENCOUNTER → 2018-01-07 | Outpatient (CLI) | payer OTHER | END | disposition home or self-care (01) | LOC: C.LAB 08:08 | PROVIDERS: ATTEND Obstetrics & Gynecology | DX: O20.0 Threatened abortion (principal); Z3A.00 Weeks of gestation of pregnancy not specified ==

== ENCOUNTER → 2018-01-09 | Outpatient (CLI) | payer OTHER | END | disposition home or self-care (01) | LOC: C.LAB 14:29 | PROVIDERS: ATTEND Obstetrics & Gynecology | DX: O20.0 Threatened abortion (principal); Z3A.00 Weeks of gestation of pregnancy not specified ==

== ENCOUNTER → 2018-01-14 | Outpatient (CLI) | payer OTHER | END | disposition home or self-care (01) | LOC: C.LAB 11:59 | PROVIDERS: ATTEND Obstetrics & Gynecology | DX: R10.2 Pelvic and perineal pain (principal); Z32.01 Encounter for pregnancy test, result positive ==

== ENCOUNTER → 2018-02-11 | Outpatient (CLI) | payer OTHER | END | disposition home or self-care (01) | LOC: C.LAB 12:03 | PROVIDERS: ATTEND Obstetrics & Gynecology | DX: O03.9 Complete or unspecified spontaneous abortion without complication (principal) ==

== ENCOUNTER 2019-02-11 16:51 | Inpatient (IN) ==
[2019-02-11] MEDS ORDERED: CEFEPIME 2,000 MG/20 ML VIAL IV STA (17:12)
[2019-02-11] MEDS ORDERED: VANCOMYCIN HCL 1,500 MG in SODIUM CHLORIDE 0.9% 500 ML IV STA (17:12)
[2019-02-11] MEDS ORDERED: VANCOMYCIN CONSULT ACTIVE PRN ×2 (17:12→22:43)
--- NOTE | 2019-02-11 17:23 | XRay Report ---
XR chest 1V portable CLINICAL HISTORY: Sepsis dyspnea COMPARISON STUDY: 06/17/2015 FINDINGS: The bones soft tissues and hemidiaphragms are normal. The cardiomediastinal silhouette is n ormal. The lungs are clear. The pulmonary vasculature is normal. IMPRESSION: Negative chest. The above report was generated using voice recognition software. It may contain grammatical, syntax or spelling errors. Electronically signed by: Jeff Antonio M.D. 02/11/2019 5:22 PM
[2019-02-11 17:48] LABS: Basophils # (auto) 0.01 K/uL (0-0.2); Basophils % (auto) 0.1 %; Eosinophils # (auto) 0.16 K/uL (0-0.5); Eosinophils % (auto) 1.6 %; Hemoglobin 12.6 g/dL (12.0-16.0); Immature Granulocytes # (auto) 0.02 K/uL (0.00-0.02); Immature Granulocytes % (auto) 0.2 %; Lymphocytes # (auto) 2.54 K/uL (1.2-3.4); Lymphocytes % (auto) 25.3 %; Mean Corpuscular Hemoglobin 26.9 pg (25-34); Mean Corpuscular Hgb Conc 34.1 g/dL (32-36); Mean Corpuscular Volume 79.1 fL (80-100); Mean Platelet Volume 10.5 fL (7.4-10.4); Monocytes # (auto) 0.63 K/uL (0.11-0.59); Monocytes % (auto) 6.3 %; Neutrophils # (auto) 6.68 K/uL (1.4-6.5); Neutrophils % (auto) 66.5 %; Platelet Count 292 K/uL (130-400); RDW Coefficient of Variation 15.3 % (11.5-14.5); RDW Standard Deviation 44.4 fL (36.4-46.3); Red Blood Count 4.68 M/uL (4.2-5.4); White Blood Count 10.04 K/uL (4.8-10.8)
[2019-02-11] MEDS ORDERED: KETOROLAC 30 MG/ML VIAL IV STA (18:00)
[2019-02-11 18:25] LABS: Amphetamines+Metham, Urine Neg (Neg); Barbiturates, Urine Neg (Neg); Benzodiazepine, Urine Neg (Neg); Cocaine, Urine Neg (Neg); MDMA (Ecstacy), Urine Neg (Neg); Methadone, Urine Neg (Neg); Opiate, Urine Neg (Neg); Phencyclidine, Urine Neg (Neg)
[2019-02-11 19:06] LABS: INR 1.1 (0.9-1.1); Partial Thromboplastin Ratio 1.1; Partial Thromboplastin Time 29.8 Seconds (21.0-31.0); Prothrombin Time 10.8 Seconds (9.0-12.0)
[2019-02-11 19:14] LABS: Albumin Level 3.2 gm/dl (3.4-5.0); BUN Creatinine Ratio 27.5 (10-20); Calcium 8.5 mg/dl (8.5-10.1); Creatinine Clr Calc Pharmacy 107.8 ml/min; Est GFR (African American) 129.6; Est GFR (Non-African American) 111.8; Potassium 3.9 mmol/L (3.5-5.1)
[2019-02-11 19:16] LABS: Albumin Globulin Ratio 0.6 (0.9-2); Bilirubin,Total 0.3 mg/dl (0.2-1); Globulin 5.3 gm/dl (2.5-4.0); Total Protein 8.5 gm/dl (6.4-8.2)
[2019-02-11] MEDS ORDERED: SODIUM CHLORIDE 0.9% 1000ML 1,000 ML IV ONE (19:24)
[2019-02-11] MEDS: MoRPHine SULFATE 4 MG/ML 1 ML CARP\\VIAL IV PRN ×2 (21:25→22:33)
--- NOTE | 2019-02-11 21:37 | Emergency Department Note ---
Entered by Lisa Mills acting as a scribe for Rahul Fenton MD History of Present Illness General Chief complaint: Hand Injury/Pain Stated complaint: BOTH HANDS SWOLLEN, POSSIBLE INFECTION Time Seen by Provider: 02/11/19 16:57 Source: patient History of Present Illness Provider complaint: hand swelling Onset (ago): week(s) 2 Location: upper extremity, left and right Pain Consistency: + constant Maximum Pain Intensity: 8 Relieved By: not by medication (Amoxicillin) Associated symptoms: no fever/chills The patient is a 24 year old female w/ PMHx COPD, pyelonephritis, UTI, anemia, bronchitis, and IV drug use who presents to the ED w/ CC of bilateral hand swelling beginning 2 weeks ago. The patient states that she developed swelling in her hands bilaterally 2 weeks ago. She reports that she had pain and peeling on both hands. She notes that she was camping prior to her symptoms. The patient states that she went to [place] and they discharged her with Amoxicillin which she ended 2 days ago. She notes that she has a history of IV drug abuse, but reports that she is 16 months clean. She denies any fever or chills. Home Medications Home Medications Medication Instructions Recorded Confirmed Type buprenorphine HCl 8 mg SUBLINGUAL BID 02/11/19 02/11/19 History Allergies Allergy/AdvReac Type Severity Reaction Status Date / Time No Known Allergies Allergy Verified 02/11/19 17:55 Past Med/Surg History Medical History Anemia COPD (chronic obstructive pulmonary disease) Hepatitis C Surgical History H/O dilation and curettage Previous section Family History Other No pertinent family history Social History Preferred Language: Moldovan Communication Ability: Effective Visual Impairment: No Limitations Hearing Ability: Normal Apple Checker Required: No Beliefs That Will Affect Care: None Current Living Situation: Alone current occupational status: unemployed Feels Safe at Home: Yes Smoking Status: Current every day smoker Tobacco Type: cigarettes ; Age Started Using Tobacco: 9 ; packs per day: 0.5 ; Second Hand Exposure: Yes ; Hx Alcohol Use: No Hx Substance Use: Yes substance use type: heroin and IV drugs Review of Systems See HPI for pertinent positives & negatives. and A total of 10 systems reviewed and were otherwise negative Physical Exam Vital Signs Vital Signs - 24 hr 02/11/19 16:53 02/11/19 19:12 02/11/19 20:00 Temperature 36.6 C Temperature Source Oral Sepsis Recent Fever Within 48 Hours No Sepsis New/Unexplained Change in Mental Status No Sepsis Action Taken by Nursing No Action Required Pulse Rate 108 H Pulse Rate [Apical] 99 H 97 H Pulse Rhythm Regular Pulse Rhythm [Apical] Regular Regular Pulse Strength Normal Pulse Strength [Apical] Normal Normal Respiratory Rate 20 20 20 Respiratory Effort / Characteristics Non-Labored Spontaneous Non-Labored Spontaneous Non-Labored Spontaneous Respiratory Depth Normal Normal Normal Respiratory Pattern Regular Regular Regular Blood Pressure 111/72 Blood Pressure [Right Arm] 120/50 L 124/88 Blood Pressure Mean 85 Blood Pressure Mean [Right Arm] 73 100 Blood Pressure Position Sitting Blood Pressure Position [Right Arm] Sitting Pulse Oximetry 100 98 97 Oxygen Delivery Method Room Air Room Air Room Air GENERAL: Well appearing, well nourished, NAD, non-toxic. EYE EXAM: Normal conjunctiva. PERRL, no anisocoria and EOM's grossly intact w/o pain. OROPHARYNX: Moist mucous membranes. Grossly normal dentition. NECK: Supple, no nuchal rigidity, no adenopathy, non-tender. No signs of meningismus. LUNGS: Clear to auscultation. Normal chest wall mechanics. HEART: Tachycardic, normal rhythm, no MRG, no murmurs noted. ABDOMEN: Abdomen soft, non-tender, normo-active bowel sounds, no masses, no rebound or guarding. BACK: No CVA TTP. SKIN: No rashes and no bruising. UPPER EXTREMITIES: Swelling of 2nd and 3rd digits of the right hand, no pain with extension. Left 2nd, 3rd, and 4th digits swollen, worse in 4th digit, mild pain of extension of 4th digit. Couple areas of redness and scars on upper extremity bilaterally. LOWER EXTREMITIES: No pitting edema. No calf pain. NEURO EXAM: A&O x3, cranial nerves II-XII grossly intact, normal speech, moves all 4 extremities on command w/o issue. Procedures EJ/Peripheral Line Arm R: Time Out Performed: Yes Skin Cleansed in Sterile Fashion: Yes Size (gauge): 20 IV Secured and Dressing Applied: Yes Patient Tolerated Procedure: well Additional Comments: Bedside ultrasound was utilized to facilitate placement of the IV. Course 170: The patient was evaluated in room C2B, and a complete history and physical examination were performed. 1809: I reevaluated the patient, she is requesting more pain medication. 1950: I discussed the patient's case with Dr. Leos [facility] Hospitalist, she will accept the patient for further evaluation. Consultations Consultation #1: Dr. Leos [facility] Hospitalist Time: 19:51 Administered Medications Discontinued Medications Acetaminophen (Tylenol) 650 mg PO Q4H PRN PRN Reason: pain/fever Stop: 03/13/19 22:42 Last Admin: 02/12/19 07:34 Dose: 650 mg Documented by: [id number] Acetaminophen (Tylenol) 1,000 mg PO Q8 SERINA Stop: 03/14/19 10:29 Last Admin: 02/12/19 12:08 Dose: 1,000 mg Documented by: [id number] Buprenorphine HCl (Subutex) 8 mg SL BID SERINA Stop: 03/13/19 22:42 Last Admin: 02/12/19 09:35 Dose: 8 mg Documented by: [id number] Admin: 02/11/19 23:37 Dose: 8 mg Documented by: [id number] Gadobutrol (Gadavist 65ml) 6 ml IV ONCE PRN PRN Reason: Interaction Checking Stop: 02/16/19 14:00 Last Admin: 02/12/19 19:13 Dose: 6 ml Documented by: [id number] Admin: 02/12/19 14:01 Dose: 6 ml Documented by: [id number] Cefepime HCl (Maxipime) 2,000 mg in 20 mls @ 5 mls/min IV NOW STA; Protocol Stop: 02/11/19 17:15 Last Admin: 02/11/19 17:49 Dose: 5 mls/min Documented by: [id number] Vancomycin HCl 1,500 mg/ (Sodium Chloride) 530 mls @ 200 mls/hr IV NOW STA Stop: 02/11/19 19:50 Last Infusion: 02/11/19 20:30 Dose: 0 mls/hr Documented by: [id number] Admin: 02/11/19 17:49 Dose: 200 mls/hr Documented by: [id number] Sodium Chloride (Nss 1000ml) 1,000 mls @ 999 mls/hr IV .Q1H1M ONE Stop: 02/11/19 20:24 Last Infusion: 02/12/19 01:08 Dose: 0 mls/hr Documented by: [id number] Infusion: 02/11/19 20:10 Dose: 0 mls/hr Documented by: [id number] Admin: 02/11/19 20:06 Dose: 999 mls/hr Documented by: [id number] Ceftriaxone Sodium 1,000 mg/ (Dextrose) 50 mls @ 100 mls/hr IV Q24H SERINA; Protocol Stop: 02/21/19 22:59 Last Infusion: 02/12/19 00:22 Dose: 0 mls/hr Documented by: [id number] Admin: 02/11/19 23:16 Dose: 100 mls/hr Documented by: [id number] Vancomycin HCl 1,000 mg/ (Sodium Chloride) 270 mls @ 125 mls/hr IV Q10H SERINA; Protocol Stop: 02/22/19 01:59 Last Infusion: 02/12/19 13:20 Dose: 0 mls/hr Documented by: [id number] Admin: 02/12/19 12:08 Dose: 125 mls/hr Documented by: [id number] Infusion: 02/12/19 04:54 Dose: 0 mls/hr Documented by: [id number] Admin: 02/12/19 02:13 Dose: 125 mls/hr Documented by: [id number] Sodium Chloride (Nss 1000ml) 1,000 mls @ 125 mls/hr IV .Q8H SERINA Stop: 03/14/19 12:29 Last Admin: 02/12/19 14:32 Dose: 125 mls/hr Documented by: [id number] Ketorolac Tromethamine (Toradol) 30 mg IV NOW STA Stop: 02/11/19 18:01 Last Admin: 02/11/19 18:04 Dose: 30 mg Documented by: [id number] Ketorolac Tromethamine (Toradol) 30 mg IV Q6H PRN PRN Reason: Pain Stop: 02/16/19 22:42 Last Admin: 02/12/19 15:55 Dose: 30 mg Documented by: [id number] Admin: 02/12/19 09:25 Dose: 30 mg Documented by: [id number] Admin: 02/12/19 03:32 Dose: 30 mg Documented by: [id number] Admin: 02/11/19 23:10 Dose: 30 mg Documented by: [id number] Miscellaneous (Remove Nicoderm Patch) 1 ea N/A HS [facility] Stop: 03/14/19 20:59 Last Admin: 02/12/19 17:53 Dose: 1 ea Documented by: [id number] Morphine Sulfate (Morphine Sulfate) 4 mg IV ONE PRN PRN Reason: Pain Stop: 02/25/19 17:59 Last Admin: 02/11/19 22:33 Dose: 4 mg Documented by: [id number] Admin: 02/11/19 21:25 Dose: 4 mg Documented by: [id number] Nicotine (Nicoderm Cq) 14 mg TD QAM [facility] Stop: 03/14/19 08:59 Last Admin: 02/12/19 07:32 Dose: 14 mg Documented by: [id number] Medical Decision Making Medical Records Attestation: I reviewed the patient's medical records. Home Medications Current Medication List: was personally reviewed by me Laboratory Data Attestation: I reviewed the patient's lab results. Result diagrams: 02/11/19 17:37 02/11/19 18:44 Lab Results 02/11/19 02/11/19 02/11/19 Range/Units 17:37 17:37 17:37 WBC 10.04 (4.8-10.8) K/uL RBC 4.68 (4.2-5.4) M/uL Hgb 12.6 (12.0-16.0) g/dL Hct 37.0 (37-47) % MCV 79.1 L (80-100) fL MCH 26.9 (25-34) pg MCHC 34.1 (32-36) g/dL RDW Std Deviation 44.4 (36.4-46.3) fL RDW Coeff of Scarlet 15.3 H (11.5-14.5) % Plt Count 292 (130-400) K/uL MPV 10.5 H (7.4-10.4) fL Immature Gran % (Auto) 0.2 % Neut % (Auto) 66.5 % Lymph % (Auto) 25.3 % [place] % (Auto) 6.3 % Eos % (Auto) 1.6 % Baso % (Auto) 0.1 % Immature Gran # (Auto) 0.02 (0.00-0.02) K/uL Neut # (Auto) 6.68 H (1.4-6.5) K/uL Lymph # (Auto) 2.54 (1.2-3.4) K/uL [place] # (Auto) 0.63 H (0.11-0.59) K/uL Eos # (Auto) 0.16 (0-0.5) K/uL Baso # (Auto) 0.01 (0-0.2) K/uL ESR (0-21) mm/hr PT Cancelled INR Cancelled APTT Cancelled PTT Ratio Cancelled Sodium Cancelled Potassium Cancelled Chloride Cancelled Carbon Dioxide Cancelled Anion Gap Cancelled BUN Cancelled Creatinine Cancelled Est Cr Clr Drug Dosing Cancelled Est GFR ( Amer) Cancelled Est GFR (Non-Af Amer) Cancelled BUN/Creatinine Ratio Cancelled Glucose Cancelled Lactate (0.4-2.0) mmol/L Calcium Cancelled Total Bilirubin Cancelled AST Cancelled ALT Cancelled Alkaline Phosphatase Cancelled C-Reactive Protein (0-0.29) mg/dl Total Protein Cancelled Albumin Cancelled Globulin Cancelled Albumin/Globulin Ratio Cancelled Procalcitonin HCG, Qual (Negative) Urine Opiates Screen (Neg) Ur Methadone, Qual (Neg) Urine Barbiturates (Neg) Ur Phencyclidine (PCP) (Neg) U Amphetamin/Meth Scrn (Neg) MDMA (Ecstasy) Screen (Neg) U Benzodiazepines Scrn (Neg) Ur Cocaine Metabolite (Neg) U Marijuana (THC) Screen (Neg) HIV 1&2 Ab/P24 Ag 4thGn (Neg) 02/11/19 02/11/19 02/11/19 Range/Units 17:37 17:37 17:50 WBC (4.8-10.8) K/uL RBC (4.2-5.4) M/uL Hgb (12.0-16.0) g/dL Hct (37-47) % MCV (80-100) fL MCH (25-34) pg MCHC (32-36) g/dL RDW Std Deviation (36.4-46.3) fL RDW Coeff of Scarlet (11.5-14.5) % Plt Count (130-400) K/uL MPV (7.4-10.4) fL Immature Gran % (Auto) % Neut % (Auto) % Lymph % (Auto) % [place] % (Auto) % Eos % (Auto) % Baso % (Auto) % Immature Gran # (Auto) (0.00-0.02) K/uL Neut # (Auto) (1.4-6.5) K/uL Lymph # (Auto) (1.2-3.4) K/uL [place] # (Auto) (0.11-0.59) K/uL Eos # (Auto) (0-0.5) K/uL Baso # (Auto) (0-0.2) K/uL ESR > 90 H (0-21) mm/hr PT INR APTT PTT Ratio Sodium Potassium Chloride Carbon Dioxide Anion Gap BUN Creatinine Est Cr Clr Drug Dosing Est GFR ( Amer) Est GFR (Non-Af Amer) BUN/Creatinine Ratio Glucose Lactate (0.4-2.0) mmol/L Calcium Total Bilirubin AST ALT Alkaline Phosphatase C-Reactive Protein (0-0.29) mg/dl Total Protein Albumin Globulin Albumin/Globulin Ratio Procalcitonin Cancelled HCG, Qual (Negative) Urine Opiates Screen Neg (Neg) Ur Methadone, Qual Neg (Neg) Urine Barbiturates Neg (Neg) Ur Phencyclidine (PCP) Neg (Neg) U Amphetamin/Meth Scrn Neg (Neg) MDMA (Ecstasy) Screen Neg (Neg) U Benzodiazepines Scrn Neg (Neg) Ur Cocaine Metabolite Neg (Neg) U Marijuana (THC) Screen Neg (Neg) HIV 1&2 Ab/P24 Ag 4thGn (Neg) 02/11/19 02/11/19 02/11/19 Range/Units 18:34 18:34 18:44 WBC (4.8-10.8) K/uL RBC (4.2-5.4) M/uL Hgb (12.0-16.0) g/dL Hct (37-47) % MCV (80-100) fL MCH (25-34) pg MCHC (32-36) g/dL RDW Std Deviation (36.4-46.3) fL RDW Coeff of Scarlet (11.5-14.5) % Plt Count (130-400) K/uL MPV (7.4-10.4) fL Immature Gran % (Auto) % Neut % (Auto) % Lymph % (Auto) % [place] % (Auto) % Eos % (Auto) % Baso % (Auto) % Immature Gran # (Auto) (0.00-0.02) K/uL Neut # (Auto) (1.4-6.5) K/uL Lymph # (Auto) (1.2-3.4) K/uL [place] # (Auto) (0.11-0.59) K/uL Eos # (Auto) (0-0.5) K/uL Baso # (Auto) (0-0.2) K/uL ESR (0-21) mm/hr PT INR APTT PTT Ratio Sodium Potassium Chloride Carbon Dioxide Anion Gap BUN Creatinine Est Cr Clr Drug Dosing Est GFR ( Amer) Est GFR (Non-Af Amer) BUN/Creatinine Ratio Glucose Lactate 0.9 (0.4-2.0) mmol/L Calcium Total Bilirubin AST ALT Alkaline Phosphatase C-Reactive Protein (0-0.29) mg/dl Total Protein Albumin Globulin Albumin/Globulin Ratio Procalcitonin HCG, Qual Negative (Negative) Urine Opiates Screen (Neg) Ur Methadone, Qual (Neg) Urine Barbiturates (Neg) Ur Phencyclidine (PCP) (Neg) U Amphetamin/Meth Scrn (Neg) MDMA (Ecstasy) Screen (Neg) U Benzodiazepines Scrn (Neg) Ur Cocaine Metabolite (Neg) U Marijuana (THC) Screen (Neg) HIV 1&2 Ab/P24 Ag 4thGn Neg (Neg) 02/11/19 02/11/19 02/11/19 Range/Units 18:44 18:44 18:44 WBC (4.8-10.8) K/uL RBC (4.2-5.4) M/uL Hgb (12.0-16.0) g/dL Hct (37-47) % MCV (80-100) fL MCH (25-34) pg MCHC (32-36) g/dL RDW Std Deviation (36.4-46.3) fL RDW Coeff of Scarlet (11.5-14.5) % Plt Count (130-400) K/uL MPV (7.4-10.4) fL Immature Gran % (Auto) % Neut % (Auto) % Lymph % (Auto) % [place] % (Auto) % Eos % (Auto) % Baso % (Auto) % Immature Gran # (Auto) (0.00-0.02) K/uL Neut # (Auto) (1.4-6.5) K/uL Lymph # (Auto) (1.2-3.4) K/uL [place] # (Auto) (0.11-0.59) K/uL Eos # (Auto) (0-0.5) K/uL Baso # (Auto) (0-0.2) K/uL ESR (0-21) mm/hr PT 10.8 INR 1.1 APTT 29.8 PTT Ratio 1.1 Sodium 138 Potassium 3.9 Chloride 108 H Carbon Dioxide 23 Anion Gap 7.0 BUN 20 H Creatinine 0.74 Est Cr Clr Drug Dosing 107.8 Est GFR ( Amer) 129.6 Est GFR (Non-Af Amer) 111.8 BUN/Creatinine Ratio 27.5 H Glucose 79 Lactate (0.4-2.0) mmol/L Calcium 8.5 Total Bilirubin 0.3 AST 19 ALT 25 Alkaline Phosphatase 126 H C-Reactive Protein 7.35 H (0-0.29) mg/dl Total Protein 8.5 H Albumin 3.2 L Globulin 5.3 H Albumin/Globulin Ratio 0.6 L Procalcitonin 0.14 HCG, Qual (Negative) Urine Opiates Screen (Neg) Ur Methadone, Qual (Neg) Urine Barbiturates (Neg) Ur Phencyclidine (PCP) (Neg) U Amphetamin/Meth Scrn (Neg) MDMA (Ecstasy) Screen (Neg) U Benzodiazepines Scrn (Neg) Ur Cocaine Metabolite (Neg) U Marijuana (THC) Screen (Neg) HIV 1&2 Ab/P24 Ag 4thGn (Neg) Imaging Data Radiologist's Impression: Radiology results as stated below per my review and the radiologist's interpretation: XR chest 1V portable CLINICAL HISTORY: Sepsis dyspnea COMPARISON STUDY: 06/17/2015 FINDINGS: The bones soft tissues and hemidiaphragms are normal. The cardiomediastinal silhouette is normal. The lungs are clear. The pulmonary vasculature is normal. IMPRESSION: Negative chest. The above report was generated using voice recognition software. It may contain grammatical, syntax or spelling errors. Electronically signed by: Jeff Antonio M.D. 02/11/2019 5:22 PM Blood Pressure Blood Pressure Findings: Normal blood pressure Blood Pressure Disposition: did not require urgent referral MDM Narrative The patient is a 24 year old female w/ PMHx COPD, pyelonephritis, UTI, anemia, bronchitis, and IV drug use who presents to the ED w/ CC of bilateral hand swelling beginning 2 weeks ago. Differential diagnosis: Etiologies such as cellulitis, abscess, MRSA infection, DVT, necrotizing fasciitis, dermatitis, drug eruption, IV drug use, endocarditis, as well as others were entertained. Patient was seen and evaluated the bedside. The patient did present with some bilateral upper extremity swelling. This is more localized to the hands and primarily the digits of the bilateral hands. The patient was recently prescribed some antibiotics. This is still continued. The patient is a prior history of IV drug abuse and is on Subutex but states she has not used in over a year. The patient does have some tenderness to palpation over the fingers. There is really only the left fourth digit which is held in flexion and does have some mild pain with extension. It is not fusiformly swollen. I believe tenosynovitis to be less likely at this time but this could continue to develop. The patient was started on broad-spectrum antibiotics and would cover for possible endocarditis with Vanco and cefepime. These do not appear to be Osler's nodes. Patient does have an element of likely cellulitis. The patient did relate that she had recently been camping and whether not this could be some sort of exposure issue. Given this concern even with reassuring blood work I did speak with the on-call hospitalist who agreed to further evaluate treat the patient. Patient was admitted to the medicine service. I counseled the patient on smoking cessation for 5 minutes, was offered resources as well as recommendations to help with smoking cessation, resources were provided, patient understood. Impression & Plan Cellulitis of hand, left, Cellulitis of hand, right, Hx of intravenous drug use, in remission, Hand pain, Encounter for smoking cessation counseling Discharge Plan Visit Data *Final* Discharge Date/Time: 02/11/19 21:58 Chief Complaint: Hand Injury/Pain Stated Complaint: BOTH HANDS SWOLLEN, POSSIBLE INFECTION ED Provider: Rahul Fenton Discharge Problem: Cellulitis of hand, left, Cellulitis of hand, right, Hx of intravenous drug use, in remission, Hand pain, Encounter for smoking cessation counseling Patient Disposition: Admitted As Inpatient Discharge Instructions Interventions: ED Discharge Assessment Last Done: 02/11/19 21:58 Discharge Problem: Hand pain Qualifiers: Laterality: bilateral Qualified Code(s): M79.641 - Pain in right hand The scribe's documentation has been prepared under my direction and personally reviewed by me in its entirety. I confirm that the note above accurately reflects all work, treatment, procedures, and medical decision making performed by me.
--- NOTE | 2019-02-11 21:41 | History & Physical Report ---
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 Patient reports he was camping 3 weeks ago for 2-1/2 weeks during which lesions erupted. Hx of similar lesions 1 year ago treated as boils but would return after treatment. This episode similar lesions but more extensive. Lesions are raised nonpainful, eventually come to a head and rupture releasing whitish-yellow and brownish hard material after which the scabs and peel. She has been picking on lesions so they can drain as it helps with healing. Associated with bilateral hand redness and edema causing significant discomfort, numbness/tingling and burning pain. EXAM: bilateral arms below elbow region, hands, legs below knees and feet - erythematous raised hard non-tender nodules, some with scabbing/peeling and some with white heads; bilateral hands erythematous, warm to touch and significantly edematous especially over 2nd-4th digits; bilateral feet slightly erythematous and edematous; no osler, no janeway lesions, or cutaneous infarcts. Erythematous nodular lesions on bilateral arms, hands, legs and feet with associated cellulitis of bilateral hands: concerning for possible erythema nodosum vs. epidermoid cysts vs. cutaneous mycobacterial infection Afebrile, no WBC elevation, Protocol 0.14 ESR, CRP, HIV ordered Blood cultures pending Received Vanco and cefepime in the ED Started on Vanco and Rocephin Toradol and Tylenol PRN for pain ID consulted Recommend dermatology consultation outpatient - none available inpatient Hepatitis C infection Per patient not bad enough to be treated Alk phos elevated at 126, otherwise LFTs within normal limits Tobacco use Nicotine patch ordered DVT prophylaxis: Low risk, SCDs only Code: Full Disposition: MedSurg (3) Hepatitis C: (4) Tobacco use: History of Present Illness Chief Complaint: Skin lesions Primary Care Provider: Debbie Pina DO 24-year-old female with history of hepatitis C, 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 Patient reports he was camping 3 weeks ago for 2-1/2 weeks during which lesions erupted. Lesions were all over arms, hands, legs and feet. Lesions are raised nonpainful, eventually come to a head and rupture releasing whitish-yellow and brownish hard material after which the scabs and peel. She has been picking on lesions so they can drain as it helps with healing. Associated with bilateral hand redness and edema causing significant discomfort, numbness/tingling and burning pain. Reports going to [facility] and having test done after which she was discharged with amoxicillin for 10 days which she recently finished. Now lesions less in number and almost gone from her legs however her hands are very red and swollen and she is having significant pain and discomfort. Initially had fever once or twice, also reports some lightheadedness and nausea. Denies any headache, weight loss, night sweats, chest pain, shortness of breath, palpitations, abdominal pain, vomiting, dysuria, hematuria, constipation, diarrhea, hematochezia, melena. Of note: Patient reports similar lesions about a year ago but less diffuse which were treated as boils with antibiotics however they would always come back after the antibiotic course. Surgical history: and D&C Social history: History of heroine use now on Subutex, smokes about half a pack a day for the past 14 years, denies any other recreational drug use or alcohol Allergies Allergy/AdvReac Type Severity Reaction Status Date / Time No Known Allergies Allergy Verified 02/11/19 17:55 Home Medications Home Medications Medication Instructions Recorded Confirmed Type buprenorphine HCl 8 mg SUBLINGUAL BID 02/11/19 02/11/19 History Past Med/Surg History Medical History Anemia COPD (chronic obstructive pulmonary disease) Social History Preferred Language: German Communication Ability: Effective 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 Beliefs That Will Affect Care: None Current Living Situation: Alone Other Information That Helps Us Care for You: No Feels Safe at Home: Yes Safety Concerns: Feels Safe At This Time Smoking Status: Current every day smoker Tobacco Type: cigarettes ; Do You Dip or Chew Tobacco: No ; Second Hand Exposure: Yes ; Tobacco Cessation Education Requested by Patient: No Hx Alcohol Use: No Hx Substance Use: Yes substance use type: IV drugs Last Used Substance Other:: 16 months ago Review of Systems Review of Systems: As per HPI Physical Exam Physical Exam: General: In NAD Neuro: A&O x 4 Pulm: CTAB equal breath sounds bilaterally CV: RRR, no m/r/g Abdomen:+BS, no TTP in all quadrants, non-distended Skin: bilateral arms below elbow region, hands, legs below knees and feet - erythematous raised hard non-tender nodules, some with scabbing/peeling and some with white heads; bilateral hands erythematous, warm to touch and significantly edematous especially over 2nd-4th digits; bilateral feet slightly erythematous and edematous; no osler, no janeway lesions, or cutaneous infarcts Results & Data Vital Signs (Past 12 Hours) Vital Signs Temp Pulse Pulse Resp BP BP Pulse Ox 02/11/19 20:00 97 H 20 124/88 97 02/11/19 19:12 99 H 20 120/50 L 98 02/11/19 16:53 36.6 C 108 H 20 111/72 100 Laboratory Results Abnormal lab results 02/11/19 02/11/19 Range/Units 17:37 18:44 MCV 79.1 L (80-100) fL RDW Coeff of Scarlet 15.3 H (11.5-14.5) % MPV 10.5 H (7.4-10.4) fL Neut # (Auto) 6.68 H (1.4-6.5) K/uL [place] # (Auto) 0.63 H (0.11-0.59) K/uL Chloride 108 H (98-107) mmol/L BUN 20 H (7-18) mg/dl BUN/Creatinine Ratio 27.5 H (10-20) Alkaline Phosphatase 126 H (45-117) U/L Total Protein 8.5 H (6.4-8.2) gm/dl Albumin 3.2 L (3.4-5.0) gm/dl Globulin 5.3 H (2.5-4.0) gm/dl Albumin/Globulin Ratio 0.6 L (0.9-2) Diagnostic Findings XR chest 1V portable CLINICAL HISTORY: Sepsis dyspnea COMPARISON STUDY: 06/17/2015 FINDINGS: The bones soft tissues and hemidiaphragms are normal. The cardiomediastinal silhouette is normal. The lungs are clear. The pulmonary vasculature is normal. IMPRESSION: Negative chest. Medications Administered Current Inpatient Medications Miscellaneous Information (Consult) 1 ea N/A UD PRN PRN Reason: Consult Stop: 03/13/19 17:11 Morphine Sulfate (Morphine Sulfate) 4 mg IV ONE PRN PRN Reason: Pain Stop: 02/25/19 17:59 Last Admin: 02/11/19 21:25 Dose: 4 mg Documented by: Code Status & VTE Plan Code Status Full VTE Prophylaxis Plan VTE Prophylaxis will be ordered: Yes Supervising Physician Co-Signing Physician Notes Patient seen and examined, chart reviewed, case discussed with Dr. Art and I agree with her assessment and plan as documented above. Briefly patient is a 24-year-old female with prior history of IVDU, untreated HCV presenting with rash on hands and legs present x3 weeks. Patient has had the same presentation 1 year ago. Patient has been picking on the lesions and attempts to get them to open. She has warmth, swelling and redness hands bilaterally. Also complaining of pain and generally feeling unwell. On physical exam she is afebrile, hemodynamically stable (initially tachycardic on arrival) General-awake alert and oriented, no acute distress Skin-multiple erythematous subcutaneous nodules palpated on bilateral forearms, hands, legs and feet. Lesions approximate 1 to 2 cm in diameter, nontender. Some lesions appear pustular, others open with eschar. Skin of hands erythematous warm with significant edema of digits. HEENT - NC/AT, PERRL, MMM, no oropharyngeal lesions, neck supple, vision intact Heart - +S1/S2, regular, no m/r/g Lungs - CTA Abd - +BS, soft, NT/ND Ext- no edema Labs and images reviewed. No leukocytosis, ESR > 90, CRP=7.35, LN=596, Utox negative Assessment/Plan: 24yo C female with prior IVDA, reports being clean x 15-16 months presenting with recurrence of nodular lesions on her hands and legs -Etiology unclear. Ddx to include epidermoid cysts, erythema nodosum, infectious source vs rheumatologic. Does not appear to be vasculitic in nature -Patient would benefit from followup with Dermatology with biopsy -Await cultures -Empiric antibiotics for now -Check HIV -Remainder of plan as above Patient is presently on Buprenorphine BID for her heroine addiction. She wishes to be weaned off of this which is to be done in an inpatient rehabilitation facility. She has been in contact with [facility] in [place], [place]. She was planning to go there tomorrow to begin her detox but they requested that she be seen by a physician first to assess the lesions on her arms and legs to ensure not communicable disease. She requests that a note be faxed to [phone] PG Care Time/CCT Total # of Minutes Spent Total Time Spent with Patient: Total time spent is greater than 50% in coordination of care (as documented) at patient's floor/unit and/or counseling patient: Resident Activity Tracking Resident Involvement: Resident Care Provided Care Provided: Adult Hospital Medicine
[2019-02-11] MEDS ORDERED: ONDANSETRON INJ 2 MG/ML 2 ML VIAL IV PRN (22:43)
[2019-02-11] MEDS ORDERED: ACETAMINOPHEN 325 MG TAB PO PRN (22:43)
[2019-02-11] MEDS ORDERED: cefTRIAXone SODIUM 1,000 MG in DEXTROSE 5% 50 ML IV SCH (23:00)
[2019-02-11 23:04] LABS: Pregnancy Test, Serum Negative (Negative)
[2019-02-11] MEDS: KETOROLAC 30 MG/ML VIAL IV PRN (23:10)
[2019-02-11 23:13] LABS: C Reactive Protein 7.35 mg/dl (0-0.29)
[2019-02-11] MEDS: BUPRENORPHINE HCL 8 MG SUBL SL SCH (23:37)
[2019-02-12] MEDS: VANCOMYCIN HCL 1,000 MG in SODIUM CHLORIDE 0.9% 250 ML IV SCH ×2 (02:13→12:08)
[2019-02-12] MEDS: KETOROLAC 30 MG/ML VIAL IV PRN ×3 (03:32→15:55)
[2019-02-12] MEDS ORDERED: NICOTINE 14 MG/24 HR PATCH TD SCH (09:00)
[2019-02-12] MEDS: BUPRENORPHINE HCL 8 MG SUBL SL SCH (09:35)
[2019-02-12] MEDS ORDERED: ACETAMINOPHEN 500 MG TAB PO SCH (10:30)
--- NOTE | 2019-02-12 10:55 | Family Medicine Progress Note ---
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 Cellulitis and abscess of bilateral hands -continue Vanc and Rocephin -MRI of bilateral hands ordered. Left hand MRI shows fluid collection in wrist and finger, but no osteomyelitis or septic arthritis. Right hand MRI to be done around 2AM. -Will require surgical drainage-ortho consulted once right hand MRI done. -will make NPO -will follow up on blood cultures -continue scheduled tylenol for pain with PRN toradol -echo with no indication of infective endocarditis -appreciate ID recs Erythematous nodular lesions on extremities -concerning for possible erythema nodosum vs. epidermoid cysts vs. cutaneous mycobacterial infection -address once acute infection addressed. Hepatitis C infection Currently UNtreated Alk phos elevated at 126, otherwise LFTs within normal limits -should follow outpatient Tobacco use Nicotine patch ordered DVT prophylaxis: Low risk, SCDs only Code: Full (3) Hepatitis C: (4) Tobacco use: Supervising Physician Co-Signing Physician Notes Resident Physician Supervision Note: I independently interviewed and examined the patient and verified the foy history and physical, reviewed labs and image studies, discussed the case with the resident Dr. Garcia and agree with the findings and care plan. Subjective Ms. Wynne states she is in pain especially in her hands. Denies BERRIOS, chest pain, SOB, palps, abd pain, N/V, diarrhea or constipation. Review of Systems Review of Systems: All systems reviewed & are unremarkable except as noted in HPI & below Physical Exam Physical Exam: General: Alert, oriented. HEENT: NC/AT, PERRLA, EOMI, oropharynx moist. Chest: Nontender to palpation. CV: RRR, Normal s1, s2. No murmurs appreciated Resp: Breath sounds clear bilaterally, no increased effort of breathing. No crackles/rhonchi/rales. Abdomen: Soft, nontender, nondistended. No guarding. No organomegaly appreciated. Extremities: Hands swollen bilaterally. No edema in lower extremities bilaterally. Skin: Multiple scars and nodules over arms, legs. Results & Data Vital Signs (Past 12 Hours) Vital Signs Temp Pulse Resp BP Pulse Ox 02/12/19 07:53 36.9 C 85 18 110/69 95 02/12/19 00:00 36.8 C 91 H 20 129/79 95 Laboratory Results Laboratory Results - last 24 hr 02/11/19 02/11/19 02/11/19 17:37 17:37 17:37 WBC 10.04 RBC 4.68 Hgb 12.6 Hct 37.0 MCV 79.1 L MCH 26.9 MCHC 34.1 RDW Std Deviation 44.4 RDW Coeff of Scarlet 15.3 H Plt Count 292 MPV 10.5 H Immature Gran % (Auto) 0.2 Neut % (Auto) 66.5 Lymph % (Auto) 25.3 [place] % (Auto) 6.3 Eos % (Auto) 1.6 Baso % (Auto) 0.1 Immature Gran # (Auto) 0.02 Neut # (Auto) 6.68 H Lymph # (Auto) 2.54 [place] # (Auto) 0.63 H Eos # (Auto) 0.16 Baso # (Auto) 0.01 ESR PT Cancelled INR Cancelled APTT Cancelled PTT Ratio Cancelled Sodium Cancelled Potassium Cancelled Chloride Cancelled Carbon Dioxide Cancelled Anion Gap Cancelled BUN Cancelled Creatinine Cancelled Est Cr Clr Drug Dosing Cancelled Est GFR ( Amer) Cancelled Est GFR (Non-Af Amer) Cancelled BUN/Creatinine Ratio Cancelled Glucose Cancelled Lactate Calcium Cancelled Total Bilirubin Cancelled AST Cancelled ALT Cancelled Alkaline Phosphatase Cancelled C-Reactive Protein Total Protein Cancelled Albumin Cancelled Globulin Cancelled Albumin/Globulin Ratio Cancelled Procalcitonin HCG, Qual Urine Opiates Screen Ur Methadone, Qual Urine Barbiturates Ur Phencyclidine (PCP) U Amphetamin/Meth Scrn MDMA (Ecstasy) Screen U Benzodiazepines Scrn Ur Cocaine Metabolite U Marijuana (THC) Screen HIV 1&2 Ab/P24 Ag 4thGn 02/11/19 02/11/19 02/11/19 17:37 17:37 17:50 WBC RBC Hgb Hct MCV MCH MCHC RDW Std Deviation RDW Coeff of Scarlet Plt Count MPV Immature Gran % (Auto) Neut % (Auto) Lymph % (Auto) [place] % (Auto) Eos % (Auto) Baso % (Auto) Immature Gran # (Auto) Neut # (Auto) Lymph # (Auto) [place] # (Auto) Eos # (Auto) Baso # (Auto) ESR > 90 H PT INR APTT PTT Ratio Sodium Potassium Chloride Carbon Dioxide Anion Gap BUN Creatinine Est Cr Clr Drug Dosing Est GFR ( Amer) Est GFR (Non-Af Amer) BUN/Creatinine Ratio Glucose Lactate Calcium Total Bilirubin AST ALT Alkaline Phosphatase C-Reactive Protein Total Protein Albumin Globulin Albumin/Globulin Ratio Procalcitonin Cancelled HCG, Qual Urine Opiates Screen Neg Ur Methadone, Qual Neg Urine Barbiturates Neg Ur Phencyclidine (PCP) Neg U Amphetamin/Meth Scrn Neg MDMA (Ecstasy) Screen Neg U Benzodiazepines Scrn Neg Ur Cocaine Metabolite Neg U Marijuana (THC) Screen Neg HIV 1&2 Ab/P24 Ag 4thGn 02/11/19 02/11/19 02/11/19 18:34 18:34 18:44 WBC RBC Hgb Hct MCV MCH MCHC RDW Std Deviation RDW Coeff of Scarlet Plt Count MPV Immature Gran % (Auto) Neut % (Auto) Lymph % (Auto) [place] % (Auto) Eos % (Auto) Baso % (Auto) Immature Gran # (Auto) Neut # (Auto) Lymph # (Auto) [place] # (Auto) Eos # (Auto) Baso # (Auto) ESR PT INR APTT PTT Ratio Sodium Potassium Chloride Carbon Dioxide Anion Gap BUN Creatinine Est Cr Clr Drug Dosing Est GFR ( Amer) Est GFR (Non-Af Amer) BUN/Creatinine Ratio Glucose Lactate 0.9 Calcium Total Bilirubin AST ALT Alkaline Phosphatase C-Reactive Protein Total Protein Albumin Globulin Albumin/Globulin Ratio Procalcitonin HCG, Qual Negative Urine Opiates Screen Ur Methadone, Qual Urine Barbiturates Ur Phencyclidine (PCP) U Amphetamin/Meth Scrn MDMA (Ecstasy) Screen U Benzodiazepines Scrn Ur Cocaine Metabolite U Marijuana (THC) Screen HIV 1&2 Ab/P24 Ag 4thGn Neg 02/11/19 02/11/19 02/11/19 18:44 18:44 18:44 WBC RBC Hgb Hct MCV MCH MCHC RDW Std Deviation RDW Coeff of Scarlet Plt Count MPV Immature Gran % (Auto) Neut % (Auto) Lymph % (Auto) [place] % (Auto) Eos % (Auto) Baso % (Auto) Immature Gran # (Auto) Neut # (Auto) Lymph # (Auto) [place] # (Auto) Eos # (Auto) Baso # (Auto) ESR PT 10.8 INR 1.1 APTT 29.8 PTT Ratio 1.1 Sodium 138 Potassium 3.9 Chloride 108 H Carbon Dioxide 23 Anion Gap 7.0 BUN 20 H Creatinine 0.74 Est Cr Clr Drug Dosing 107.8 Est GFR ( Amer) 129.6 Est GFR (Non-Af Amer) 111.8 BUN/Creatinine Ratio 27.5 H Glucose 79 Lactate Calcium 8.5 Total Bilirubin 0.3 AST 19 ALT 25 Alkaline Phosphatase 126 H C-Reactive Protein 7.35 H Total Protein 8.5 H Albumin 3.2 L Globulin 5.3 H Albumin/Globulin Ratio 0.6 L Procalcitonin 0.14 HCG, Qual Urine Opiates Screen Ur Methadone, Qual Urine Barbiturates Ur Phencyclidine (PCP) U Amphetamin/Meth Scrn MDMA (Ecstasy) Screen U Benzodiazepines Scrn Ur Cocaine Metabolite U Marijuana (THC) Screen HIV 1&2 Ab/P24 Ag 4thGn Medications Administered Home Medications buprenorphine HCl 8 mg SUBLINGUAL BID 02/11/19 [History Confirmed 02/11/19] Active Medications Acetaminophen (Tylenol) 1,000 mg PO Q8 [facility] Stop: 03/14/19 10:29 Last Admin: 02/12/19 12:08 Dose: 1,000 mg Documented by: Buprenorphine HCl (Subutex) 8 mg SL BID [facility] Stop: 03/13/19 22:42 Last Admin: 02/12/19 09:35 Dose: 8 mg Documented by: Gadobutrol (Gadavist 65ml) 6 ml IV ONCE PRN PRN Reason: Interaction Checking Stop: 02/16/19 14:00 Last Admin: 02/12/19 14:01 Dose: 6 ml Documented by: Ceftriaxone Sodium 1,000 mg/ (Dextrose) 50 mls @ 100 mls/hr IV Q24H [facility]; Protocol Stop: 02/21/19 22:59 Last Infusion: 02/12/19 00:22 Dose: Infused Documented by: Sodium Chloride (Nss 1000ml) 1,000 mls @ 125 mls/hr IV .Q8H [facility] Stop: 03/14/19 12:29 Last Admin: 02/12/19 14:32 Dose: 125 mls/hr Documented by: Vancomycin HCl 1,000 mg/ (Sodium Chloride) 270 mls @ 125 mls/hr IV Q8H [facility]; Protocol Stop: 02/22/19 19:59 Ketorolac Tromethamine (Toradol) 30 mg IV Q6H PRN PRN Reason: Pain Stop: 02/16/19 22:42 Last Admin: 02/12/19 09:25 Dose: 30 mg Documented by: Miscellaneous (Remove Nicoderm Patch) 1 ea N/A HS [facility] Stop: 03/14/19 20:59 Miscellaneous Information (Consult) 1 ea N/A UD PRN PRN Reason: Consult Stop: 03/13/19 22:42 Nicotine (Nicoderm Cq) 14 mg TD QAM [facility] Stop: 03/14/19 08:59 Last Admin: 02/12/19 07:32 Dose: 14 mg Documented by: Ondansetron HCl (Zofran) 4 mg IV Q6H PRN PRN Reason: Nausea Stop: 03/13/19 22:42 PG Care Time/CCT Total # of Minutes Spent Total Time Spent with Patient: Total time spent is greater than 50% in coordination of care (as documented) at patient's floor/unit and/or counseling patient: Resident Activity Tracking Resident Involvement: Resident Care Provided Care Provided: Adult Hospital Medicine
--- NOTE | 2019-02-12 11:46 | Infectious Disease Consult ---
Date of Consultation February 12, 2019 Assessment & Plan (1) Cellulitis of hand: concerned she is injecting into space between fingers, multiple wounds. discussed with primary, follow culture and continue abx.would suggest mri hands to r/o tenosynovitis and may need ortho eval as well. will follow. History of Present Illness Attending Physician: Amisha Torres MD pt admitted with increased hand pain, she is limited in ros, does not open eyes during exam. family/friend present during my exam. has active IVDA, uds negative, ua negative, test negative, HIV test negative in ER. Has reported h/o HCV, unclear time of diagnosis. she states she has continued hand swelling was seen recently by pcp treated with 10 days of pcn with little relief. no f/c at home, denies cp, sob, alejo, cough, no abd pain, no n/v/d. she has mulitple open ulcerations between her fingers L>R and toes. hands are red, swollen and tender. min movement due to swelling and pain, sensation intact. placed on ctx and vanco, tolerating well. ESR >90 wbc 10. Allergies Allergy/AdvReac Type Severity Reaction Status Date / Time No Known Allergies Allergy Verified 02/11/19 17:55 Home Medications Home Medications Medication Instructions Recorded Confirmed Type buprenorphine HCl 8 mg SUBLINGUAL BID 02/11/19 02/11/19 History Patient History Medical History Anemia COPD (chronic obstructive pulmonary disease) Social History Preferred Language: Irish Communication Ability: Effective Research Associate Policy Required: No Beliefs That Will Affect Care: None Current Living Situation: Alone Other Information That Helps Us Care for You: No Feels Safe at Home: Yes Safety Concerns: Feels Safe At This Time Smoking Status: Current every day smoker Tobacco Type: cigarettes ; Do You Dip or Chew Tobacco: No ; Second Hand Exposure: Yes ; Tobacco Cessation Education Requested by Patient: No Hx Alcohol Use: No Hx Substance Use: Yes substance use type: IV drugs Last Used Substance Other:: 16 months ago Review of Systems Review of Systems: All systems reviewed & are unremarkable except as noted in HPI & below Physical Exam Constitutional: WD/WN, vitals as above Eyes: does not open eyes during exam ENMT: external ear and nose normal, oropharynx normal Neck: normal visual inspection Respiratory: normal respiratory effort, lungs clear to auscultation Cardiovascular: RRR, no murmur, no edema Gastrointestinal (Abdomen): normal bowel sounds, soft, nontender, no hepatosplenomegaly Musculoskeletal: no cyanosis or clubbing, extremities motor strength 5/5 Skin: + wound (multiple ulcerations b/l hands and feet) and + erythema b/l hands with significant edema, decreased rom and erythema - all digits but mainly 3rd digits b/l. sensation intact. warm and tender to touch. b/l feet with edema, warmth, tenderness, multiple scabbed lesions noted. Psychiatric: A+Ox3, euthymic affect Apperance: + disheveled Eye Contact: + poor eye contact Affect: + blunted affect Results & Data Vital Signs (Past 12 Hours) Vital Signs Temp Pulse Resp BP Pulse Ox 02/12/19 07:53 36.9 C 85 18 110/69 95 02/12/19 00:00 36.8 C 91 H 20 129/79 95 PG Care Time/CCT Total # of Minutes Spent Total Time Spent with Patient: Total time spent is greater than 50% in coordination of care (as documented) at patient's floor/unit and/or counseling patient:
[2019-02-12] MEDS ORDERED: SODIUM CHLORIDE 0.9% 1000ML 1,000 ML IV SCH (12:30)
[2019-02-12] MEDS ORDERED: VANCOMYCIN HCL 1,000 MG in SODIUM CHLORIDE 0.9% 250 ML IV SCH ×2 (13:15→20:00)
--- NOTE | 2019-02-12 13:16 | Pharmacy Report ---
Pharmacy Abx Initial Consult - Date of Service February 12, 2019 - Pharmacy Dosing Scope Date of Consult: 02/11/19 Consultation requested by: Dr. Art Pharmacy is consulted to initiate vancomycin IV dosing therapy, order appropriate labs and adjust drug dose/frequency. - Subjective The patient is a 24 year old F admitted on 02/11/19 21:12. - Objective Height: 5 ft 6 in Weight: 64 kg Vital Signs (Past 12hrs): Vital Signs Temp Pulse Resp BP Pulse Ox 02/12/19 07:53 36.9 C 85 18 110/69 95 Lab Results (24hrs): Laboratory Tests (24 Hours) 02/11/19 02/11/19 02/11/19 18:44 18:44 17:37 WBC Neut # (Auto) ESR > 90 H Creatinine 0.74 Est Cr Clr Drug Dosing 107.8 C-Reactive Protein 7.35 H Procalcitonin 0.14 02/11/19 02/11/19 02/11/19 17:37 17:37 17:37 WBC 10.04 Neut # (Auto) 6.68 H ESR Creatinine Cancelled Est Cr Clr Drug Dosing Cancelled C-Reactive Protein Procalcitonin Cancelled Micro Results: 02/11/19 18:44 Aerobic Blood Culture - Pending Blood Anaerobic Blood Culture - Pending 02/11/19 17:37 Aerobic Blood Culture - Pending Blood Anaerobic Blood Culture - Pending - Risk Factors for Resistance * Antimicrobial use within the last 90 days (amoxicillin) - Assessment & Plan Assessment 24 year old F admitted with lesions on hands and legs. Concerned for IVDU injecting between fingers Plan vancomycin for treatment of skin infection Vancomycin IV * Estimated PK Parameters: Vd 0.7 L/kg, Eric 0.087 hr-1, t1/2 7.9 hr * Loading dose: 1500 mg (24 mg/kg) * Maintenance dose: 1000 mg IV (16 mg/kg) every 10 hours ----> changed today to q8 hours after noon dose. * Goal trough level for cellulitis : ~15 mcg/mL * Trough ordered for 02/13/19 Pharmacy will continue to follow and will adjust dose/frequency as necessary. Thank you.
[2019-02-12] MEDS: GADOBUTROL 65ML VIAL IV PRN ×2 (14:01→19:13)
--- NOTE | 2019-02-12 14:25 | Magnetic Resonance Report ---
MR hand LT wo/w con HISTORY: Left hand swelling, pain, Hx of IV drug use TECHNIQUE: Multiplanar multisequence MRI of the left hand was performed both before and after the int ravenous administration of contrast. COMPARISON STUDY: None. FINDINGS: Extensive subcutaneous edema and enhancement throughout the majority of the hand most prono unced along the dorsal aspect. This favors a cellulitis. At the volar aspect of the wrist there is a subcutaneous 1.6 x 1.6 x 0.4 cm peripheral enhancing fluid collection. This is consistent with a smal l abscess. There is also a 4.0 x 1.4 x 0.4 cm superficial to the extensor tendons along the dorsum of the index finger. This is consistent with an additional subcutaneous abscess. No abnormal signal or enhancement within the muscles of the left hand. Normal marrow signal intensity seen throughout the v isualized osseous structures. No fracture or dislocation. No evidence for osteomyelitis the flexor an d extensor tendons are intact. The median nerve is within normal limits. IMPRESSION: 1. There are 2 subcutaneous fluid collections within the dorsum of the index finger and along the vol ar side of the wrist as described above consistent with abscesses. 2. Extensive subcutaneous edema and enhancement throughout the majority of the hand most pronounced d orsally. This is consistent with a cellulitis. 3. No evidence for osteomyelitis or septic arthritis. Electronically signed by: Zion Doyle M.D. 02/12/2019 2:23 PM
--- NOTE | 2019-02-12 16:34 | Orthopedic Consultation ---
Date of Consultation February 12, 2019 Assessment & Plan (1) Skin abscess: Patient was educated regarding today's findings. She has already received IV vancomycin and Rocephin. Infectious disease consult has been completed. She will require I&D of these abscesses in the OR. Anticipate doing this tomorrow morning due to timing of her right hand MRI. I did discuss doing a staged procedure versus 1 exposure to anesthesia. She has had these reportedly for up to 3 weeks and is not septic. She is afebrile at this time. She will be made n.p.o. after midnight in anticipation of surgery tomorrow morning. Dr. Mora will evaluate the patient later this afternoon. I was able to obtain pus for culture from each of the wounds on the left hand. Continue with current IV antibiotic regimen until cultures have finalized. Pain management per medicine prerogative. I, Dr. Mora, saw and examined the patient and discussed the management with my PA. I reviewed my PAs note and agree with the documented findings and the plan of care I developed. After a lengthy discussion with the patient today regarding my above clinical findings, as well as reviewing their imaging, their treatment options of conservative management versus surgical intervention were discussed. The risk and benefits of each were discussed. The risks of surgery included but not limited to: recurrent Infection, bleeding, nerve damage, continued pain, stiffness, need for repeat surgery. They would like to proceed with surgery and informed consent was signed for bilateral hand and wrist I&D. In regards to the right hand, awaiting MRI results to determine the approach. They will continue their current regime of antibiotics and will be nothing by mouth after midnight. The patient understood all my instructions and explanation; all their questions were satisfactorily addressed. Supervising Physician Co-Signing Physician Naif mora History of Present Illness Reason for Consultation: Bilateral wrist and hand skin abscesses Attending Physician: Amisha Torres MD History of Present Illness This 24-year-old white female presented through the ED for bilateral hand pain that has been ongoing for 3 weeks. Patient was found to have skin abscesses with cellulitis and was admitted to the medicine service for antibiotic treatment. Patient states that she has a long-standing history of similar abscesses on her extremities. She states that usually developed into pustules and rupture on their own. They resolve after draining. She has had her current symptoms for approximately 3 weeks. She states she was camping for 2-1/2 weeks. Symptoms started prior to camping. She thinks she fell into a thorny lucas prior to onset. She denies any significant water exposure while camping. Symptom were worse last week. She was seen by the ED at [place] and prescribed amoxicillin. She finished a week's worth of of the medication and notes some improvement in her redness, swelling, and pain. She has had no fevers. Right- hand dominant. She notes loss of motion to her fingers due to edema and pain. She denies any streaking in the arms. There was involvement of her lower extremities as well, but this improved after the oral antibiotic. No numbness or tingling. Patient has a history of heroin abuse but states she has not used any illicit drugs for 16 months. This has been asked of her several times. Urine toxicity shows no abnormalities. She is reportedly taking Subutex for her maintenance drug. MRI obtained earlier today of the left hand and wrist shows an index finger and volar wrist abscesses. Allergies Allergy/AdvReac Type Severity Reaction Status Date / Time No Known Allergies Allergy Verified 02/11/19 17:55 Home Medications Home Medications Medication Instructions Recorded Confirmed Type buprenorphine HCl 8 mg SUBLINGUAL BID 02/11/19 02/11/19 History Patient History Medical History Anemia COPD (chronic obstructive pulmonary disease) Hepatitis C Surgical History H/O dilation and curettage Previous section Family History Other No pertinent family history Social History Preferred Language: Filipino Communication Ability: Effective Visual Impairment: No Limitations Hearing Ability: Normal Sales Development Coordinator Required: No Beliefs That Will Affect Care: None Current Living Situation: Alone current occupational status: unemployed Other Information That Helps Us Care for You: No Feels Safe at Home: Yes Safety Concerns: Feels Safe At This Time Smoking Status: Current every day smoker Tobacco Type: cigarettes ; Age Started Using Tobacco: 9 ; packs per day: 0.5 ; Do You Dip or Chew Tobacco: No ; Second Hand Exposure: Yes ; Tobacco Cessation Education Requested by Patient: No Hx Alcohol Use: No Hx Substance Use: Yes substance use type: heroin and IV drugs Last Used Substance Other:: 16 months ago Review of Systems Review of Systems: A total of 10 systems are reviewed and are significant only for above-stated conditions. Physical Exam Physical Exam: General: Well-developed, well-nourished, young white discomfort. No acute distress. Laying on a bed. Alert and oriented. Occasionally mildly tearful. Skin: Warm and dry with good turgor. No rashes. No ecchymosis. Extensive erythema and edema present in the digits, hands, and wrists bilaterally. Involvement of multiple digits, 1 through 5, on both hands. She has an open wound in the left hand fourth webspace that is oozing pus. She also has a punctate opening on the ulnar aspect of the index finger that is oozing pus. Extensive scars and scabs present on her arms and legs from previous similar lesions. Mild edema of her feet. No erythema or open wounds. The patient is not diaphoretic. No abrasions. Tattoo present on her left shoulder. No tenderness to palpation over the metacarpal heads bilaterally. Right digits with increased fusiform swelling, decreased ROM. Tenderness over radial aspect of the digits. No specific fluid collection appreciated. Left wrist volarly small raised Erythematous area. HEENT: Normocephalic atraumatic. Eyes PERRLA, EOMI. No conjunctiva or scleral injection. Nares patent bilaterally without turbinate enlargement. No significant drainage. No epistaxis. Oropharynx without erythema or exudate. Uvula midline, oral mucosa moist. No lesions present. Heart: Heart RRR. No MGR. Peripheral pulses are 2+. Lungs: Lungs are clear to auscultation. No crackles rhonchi or wheezing. Good air movement. The patient is able to take a deep breath. Abdomen: Abdomen was inspected, auscultated, and palpated. Bowel sounds present x 4. Soft, nontender to palpation. No hepato-splenomegaly. No masses noted. No rebound. Musculoskeletal: Patient has intact motor function to her shoulders, wrists, and digits. Limited motion in her wrist and digits secondary to edema and pain. Intact motor function of the hips, knees, and ankles. Neurologic: Gross sensation is intact across the upper and lower extremities by soft touch. Results & Data Vital Signs (Past 12 Hours) Vital Signs Temp Pulse Pulse Resp BP BP Pulse Ox 02/12/19 15:48 36.3 C L 88 18 120/76 97 02/12/19 07:53 36.9 C 85 18 110/69 95 Laboratory Results CBC obtained yesterday shows a normal white count of 10 and a normal H&H. Urine toxicity is negative for all substances. Urine is negative. Sed rate elevated at greater than 90. C-reactive protein is elevated at 7.35. Diagnostic Findings MRI imaging of the left wrist and hand shows significant abscesses present at the volar wrist and on the dorsum of the left index finger. No additional abscess is noted in the fourth webspace. No evidence of osteomyelitis or tenosynovitis. MRI imaging of the right hand pending due to contrast load.
[2019-02-12] MEDS ORDERED: MoRPHine SULFATE 2 MG/ML CARP IV STA (20:15)
--- NOTE | 2019-02-12 20:43 | Progress Note ---
Date of Service February 12, 2019 Patient requesting to go outside for a cigarette. She is refusing a nicotine patch or gum, refusing antibiotics at this time. She states that she will leave AMA if she is not able to go out for a cigarette. Patient would not be able to be accompanied. AMA papers completed. Discussed risk of worsening infection, loss of function in her hands or . Told her it is important to return to care if she develops fevers/chills/sweats/nausea or worsening lesions. Patient voiced understanding and accepts risks. Results & Data Vital Signs (Past 12 Hours) Vital Signs Temp Pulse Resp BP Pulse Ox 02/12/19 15:48 36.3 C L 88 18 120/76 97 PG Care Time/CCT Total # of Minutes Spent Total Time Spent with Patient: Total time spent is greater than 50% in coordination of care (as documented) at patient's floor/unit and/or counseling patient:
--- NOTE | 2019-02-12 20:43 | Magnetic Resonance Report ---
MRI OF THE RIGHT HAND WITH AND WITHOUT CONTRAST CLINICAL HISTORY: swelling, pain, Hx of IV drug use COMPARISON STUDY: No previous studies for comparison. TECHNIQUE: Utilizing a 1.5 Eloise magnet, multiplanar, multiecho imaging of the right hand was perform ed pre and postcontrast administration. Intravenous injection of 6 cc of Gadavist was uneventful. FINDINGS: Alignment of the right hand is anatomic. Carpal bones are intact. There is no MR evidence f or osteomyelitis within the right wrist or hand. There is apparent mild enhancement within the distal phalanx of the right second finger however there is only minimal marrow edema and preserved T1 signa l. There is subcutaneous dorsal edema of the right hand which suggests cellulitis. There is increased fluid within the flexor tendon sheaths at the level of the metacarpals and the carpal bones. No sign ificant enhancement of the sheath is noted on postcontrast images. Note is made of a 1 x 0.5 cm fluid collection within the right second finger along the palmar medial aspect at the level of the distal proximal phalanx. This may reflect a small abscess. IMPRESSION: 1. Extensive dorsal subcutaneous edema of the right hand and wrist favor cellulitis. 2. Increased fluid within the flexor tendon sheaths. Nonspecific and may be infectious or reactive. 3. Exam mildly compromised by motion artifact. No convincing evidence for osteomyelitis. 4. 1 x 0.5 cm fluid collection within the right second finger, as described above. This may reflect a small abscess. Electronically signed by: Bebeto Miranda M.D. 02/12/2019 8:41 PM
[2019-02-13] MEDS ORDERED: VANCOMYCIN TROUGH ONE (09:30)
--- NOTE | 2019-02-24 10:06 | Discharge Summary ---
Date of Service Note completed on February 24, 2019 Patient left AMA on 02/12/19 Admission HPI Per Admitting Provider 24-year-old female with history of hepatitis C, 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 Patient reports he was camping 3 weeks ago for 2-1/2 weeks during which lesions erupted. Lesions were all over arms, hands, legs and feet. Lesions are raised nonpainful, eventually come to a head and rupture releasing whitish-yellow and brownish hard material after which the scabs and peel. She has been picking on lesions so they can drain as it helps with healing. Associated with bilateral hand redness and edema causing significant discomfort, numbness/tingling and burning pain. Reports going to [facility] and having test done after which she was discharged with amoxicillin for 10 days which she recently finished. Now lesions less in number and almost gone from her legs however her hands are very red and swollen and she is having significant pain and discomfort. Initially had fever once or twice, also reports some lightheadedness and nausea. Denies any headache, weight loss, night sweats, chest pain, shortness of breath, palpitations, abdominal pain, vomiting, dysuria, hematuria, constipation, diarrhea, hematochezia, melena. Of note: Patient reports similar lesions about a year ago but less diffuse which were treated as boils with antibiotics however they would always come back after the antibiotic course. Surgical history: and D&C Social history: History of heroine use now on Subutex, smokes about half a pack a day for the past 14 years, denies any other recreational drug use or alcohol Admission Exam (Per Admitting) Constitutional General: In NAD Neuro: A&O x 4 Pulm: CTAB equal breath sounds bilaterally CV: RRR, no m/r/g Abdomen:+BS, no TTP in all quadrants, non-distended Skin: bilateral arms below elbow region, hands, legs below knees and feet - eryt hematous raised hard non-tender nodules, some with scabbing/peeling and some with white heads; bilateral hands erythematous, warm to touch and significantly edematous especially over 2nd-4th digits; bilateral feet slightly erythematous and edematous; no osler, no janeway lesions, or cutaneous infarcts Discharge Data Consultations 02/11/19 19:25 ED Decision to Admit Stat 02/11/19 22:43 Consult Infectious Diseases Routine 02/12/19 16:05 Consult Orthopedic Surgery Routine Procedures Performed Operation Date: 02/13/19 07:30 <No data on this case meets the specified criteria> Hospital Course (1) Skin abscess: Patient admitted on 02/11/19 with complaint of increased pain, redness and swelling as well as nodular lesions on her hands bilaterally thought to be secondary to skin abscesses possibly from IV drug injection sites. Patient was treated with Vancomycin and Rocephin. She had an MRI of her hands which showed extensive dorsal subcutaneous edema of the right hand and wrist favoring cellulitis. Increased fluid within the flexor tendon sheaths and a 1 x 0.5 cm fluid collection within the right second finger that may reflect a small absce ss. She was evaluated by Orthopedic Surgery for possible incision drainage of aforementioned fluid collection. On 02/12/19 evening the patient was requesting to go out for a cigarette, stating that she would leave AMA if she could not go out. She refused a nicotine patch as well as further medical treatment until she could go out for a cigarette. Patient was informed of the risks of not receiving further medical treatment to include worsening infection, loss of function of her hands or . She left AMA. Paperwork complete
== END 2019-02-12 21:14 | disposition left against medical advice (07) | DRG 603 ==
LOC: ED 16:51 → SUATTDRO 21:12 → 4W 21:12

== ENCOUNTER 2019-05-08 16:49 | Inpatient (IN) ==
[2019-05-08] MEDS ORDERED: PROCHLORPERAZINE 2 ML IV ONE (17:51)
[2019-05-08] MEDS ORDERED: ACETAMINOPHEN 1,000 MG/100 ML VIAL IV STA (17:51)
[2019-05-08] MEDS ORDERED: KETOROLAC TROMETHAMINE 15 MG/ML VIAL IV STA (17:51)
[2019-05-08] MEDS ORDERED: DiphenhydrAMINE HCL 50 MG/ML VIAL IV STA (17:51)
[2019-05-08] MEDS ORDERED: SODIUM CHLORIDE 0.9% 1000ML 2,000 ML IV ONE (17:51)
[2019-05-08 20:01] LABS: Appearance Urine Cloudy (Clear); Bacteria Urine Automated 3+ (Negative); Bilirubin Urine Negative (Negative); Blood Urine 2+ (Negative); Color Urine Yellow; Epithelial Cell Urine Auto 20-30 /lpf (0-5); Glucose Urine UA Negative (Negative); Ketones Urine Negative (Negative); Leukocyte Esterase Urine 2+ (Negative); Nitrite Urine Positive (Negative); Protein Urine 1+ (Negative); RBC Urine Automated 0-4 /hpf (0-4); Urobilinogen Urine Negative (Negative); WBC Urine Automated >30 /hpf (0-5)
[2019-05-08 20:33] LABS: Amphetamines+Metham, Urine Neg (Neg); Barbiturates, Urine Neg (Neg); Benzodiazepine, Urine Neg (Neg); Cocaine, Urine Neg (Neg); MDMA (Ecstacy), Urine Neg (Neg); Methadone, Urine Neg (Neg); Opiate, Urine Neg (Neg); Phencyclidine, Urine Neg (Neg)
[2019-05-08 20:35] LABS: Basophils # (auto) 0.01 K/uL (0-0.2); Eosinophils # (auto) 0.01 K/uL (0-0.5); Hematocrit (blood only) 41.1 % (37-47); Hemoglobin 13.7 g/dL (12.0-16.0); Immature Granulocytes # (auto) 0.08 K/uL (0.00-0.02); Immature Granulocytes % (auto) 0.4 %; Lymphocytes # (auto) 1.59 K/uL (1.2-3.4); Lymphocytes % (auto) 7.4 %; Mean Corpuscular Hemoglobin 28.3 pg (25-34); Mean Corpuscular Hgb Conc 33.3 g/dL (32-36); Mean Corpuscular Volume 84.9 fL (80-100); Mean Platelet Volume 9.4 fL (7.4-10.4); Monocytes # (auto) 1.49 K/uL (0.11-0.59); Monocytes % (auto) 6.9 %; Neutrophils # (auto) 18.42 K/uL (1.4-6.5); Neutrophils % (auto) 85.3 %; Platelet Count 253 K/uL (130-400); RDW Coefficient of Variation 15.1 % (11.5-14.5); RDW Standard Deviation 47.2 fL (36.4-46.3); Red Blood Count 4.84 M/uL (4.2-5.4)
[2019-05-08] MEDS ORDERED: PIPERACILLIN/TAZOBACTAM 4.5 GM/120 ML BAG IV ONE (20:42)
[2019-05-08] MEDS ORDERED: PIPERACILL/TAZOBAC CONSULT ACTIVE PRN (20:42)
[2019-05-08] MEDS ORDERED: VANCOMYCIN CONSULT ACTIVE PRN (20:42)
[2019-05-08] MEDS ORDERED: VANCOMYCIN HCL 1,500 MG in SODIUM CHLORIDE 0.9% 500 ML IV ONE (20:42)
[2019-05-08 20:51] LABS: Albumin Level 3.9 gm/dl (3.4-5.0); BUN Creatinine Ratio 13.8 (10-20); Calcium 8.8 mg/dl (8.5-10.1); Creatinine Clr Calc Pharmacy 90.7 ml/min; Est GFR (African American) 105.1; Est GFR (Non-African American) 90.7; Magnesium 1.8 mg/dl (1.8-2.4)
[2019-05-08 20:52] LABS: INR < 0.8 (0.9-1.1); Prothrombin Time < 8.7 Seconds (9.0-12.0)
[2019-05-08 20:53] LABS: Pregnancy Test, Serum Negative (Negative)
[2019-05-08 20:54] LABS: Albumin Globulin Ratio 0.8 (0.9-2); Bilirubin,Total 0.3 mg/dl (0.2-1); Globulin 4.6 gm/dl (2.5-4.0); Phosphorus 2.5 mg/dl (2.5-4.9); Total Protein 8.5 gm/dl (6.4-8.2)
[2019-05-08] MEDS ORDERED: IOVERSOL 100ml IV PRN (21:35)
--- NOTE | 2019-05-08 21:59 | CT Scan Report ---
ABDOMEN AND PELVIS CT WITH IV CONTRAST CT DOSE: 325.61 mGy.cm HISTORY: Acute generalized abdominal pain with urinary tract infection uti, abd pain, WBC 21K TECHNIQUE: Multiaxial CT images of the abdomen and pelvis were performed following the IV administrat ion of 92 cc of Optiray 320, A dose lowering technique was utilized adhering to the principles of AL MARY. COMPARISON STUDY: CT abdomen and pelvis 12/11/2018 FINDINGS: There are a few scattered solid pulmonary nodules of the lung bases measuring up to 4 mm. Trace pleur al effusions. Mild dependent subsegmental bibasilar atelectasis. There is no pneumatosis or pneumoper itoneum. The imaged inferior cardiac chambers are unremarkable. Gallbladder, spleen, liver, pancreas and adrenal glands appear unremarkable. Unremarkable appearance of the left kidney. Patchy heterogene ous enhancement of the right kidney is noted with mild pelvocaliectasis. Urothelial thickening of the right renal collecting system, ureter and renal pelvis. No obstructing lesion or calculus. Mild circ umferential wall thickening of the urinary bladder. Uterus and adnexa are unremarkable. Aorta and IVC are within normal limits. Mildly prominent retroperitoneal lymph nodes, likely reactive. No bowel obstruction or bowel wall thickening. Mild to moderate fecal retention. Visualized appendix appears noninflamed within the abdominal right lower quadrant. Mild diastases recti with tiny fat abhi led periumbilical hernia. Imaged breast parenchyma and soft tissues appear unremarkable. Bones appear intact. IMPRESSION: 1. Mild urinary bladder wall thickening suspicious for cystitis. Additionally, there are findings of right-sided pyelonephritis with associated urothelial thickening suggestive of associated ureteritis/ pyelitis. 2. No renal or ureteral calculi. 3. Mild to moderate fecal retention. 4. No bowel obstruction or bowel wall thickening. 5. Trace pleural effusions with scattered bibasilar solid pulmonary nodules measuring up to 4 mm, lik luke infectious or inflammatory. Electronically signed by: Camacho Jimenez M.D. 05/08/2019 9:58 PM
[2019-05-08] MEDS ORDERED: DOCUSATE SODIUM 100 MG CAP PO PRN (22:01)
--- NOTE | 2019-05-08 22:11 | History & Physical Report ---
Date of Service May 08, 2019 Assessment & Plan (1) Pyelonephritis: Patient febrile, tachycardic, + leukocytosis with urinalysis strongly suggestive of infection. CT of the abdomen and pelvis suggestive of cystitis as well as right-sided pyelonephritis. Admit to medical floor Follow urine cultures Ceftriaxone 1 g IV daily Tylenol as needed for pain or fever, Toradol as needed for pain Normal saline at 125 mL/h x 2 L Present on Admission?: Yes (2) ADHD: Patient recently diagnosed and started on atomoxetine and feels that it is greatly improved her moods. Continue at home dose80 mg p.o. every morning -Encourage compliance with medications Present on Admission?: Yes (3) Depression with anxiety: Newly diagnosed. Patient was started on numerous medications. She feels that her symptoms are much improved with her current regimen. She did miss numerous doses last week, complaining of body aches shooting pains in her head as well as cramps. Some of these discomforts may be secondary to "brain zaps" from venlafaxine discontinuation -Continue buspirone 10 mg p.o. 3 times daily Continue Remeron 15 mg p.o. nightly Continue Seroquel 50 mg p.o. twice daily Continue venlafaxine 150 mg p.o. every morning Present on Admission?: Yes (4) Tobacco use: Patient continues to smoke. -Nicotine patch -Smoking cessation counseling (5) Hx of intravenous drug use, in remission: Patient congratulated on her success. -Please avoid use of opiate agents during hospital stay F/E/N - NSS at 125mL/hr x 2 liters, monitor electrolytes and replete as needed, regular diet as tolerated Ppx - low risk for DVT, IVF, encourage ambulation Code - Full Dispo - Admit to medical floor Present on Admission?: Yes History of Present Illness Chief Complaint: Body pains, flank pain Primary Care Provider: DO Charo Quintanaharris Wynne is a 24-year-old female presenting with pyelonephritis. She complains of body pains over the last few days. Pains include shooting pains all over her body as well as cramping in her arms, legs, neck and back. Additionally she complains of low back pain right side more than left as well as urinary frequency and some mild nausea. Denies fever s/chills/chest pain/shortness of breath/cough/wheeze/abdominal pain/vomiting/diarrhea/constipation. Since last admission, patient completed rehabilitation at [facility] facility where she was successfully weaned off her Subutex. She continues to abstain from drug use and is doing quite well. While at [facility] she was diagnosed with anxiety/depression as well as ADD. She was started on a number of psychiatric medications. She has been taking them fairly regularly and overall feels quite well. She did run out of medications last week and missed a number of doses. ER course: Tylenol 1 g IV, Benadryl 25 mg IV, Toradol 15 mg IV, Zosyn 4.5 g IV, vancomycin 1.5 g IV, normal saline 2 L Allergies Allergy/AdvReac Type Severity Reaction Status Date / Time No Known Allergies Allergy Verified 02/11/19 17:55 Home Medications Home Medications Medication Instructions Recorded Confirmed Type atomoxetine 80 mg PO QAM 05/08/19 05/08/19 History buspirone 10 mg PO TID 05/08/19 05/08/19 History clonidine HCl 0.1 mg PO TID PRN 05/08/19 05/08/19 History hydroxyzine pamoate 50 mg PO TID PRN 05/08/19 05/08/19 History mirtazapine 15 mg PO HS 05/08/19 05/08/19 History quetiapine 50 mg PO BID 05/08/19 05/08/19 History venlafaxine 150 mg PO QAM 05/08/19 05/08/19 History Past Med/Surg History Family History Other No pertinent family history Social History Preferred Language: Irish Communication Ability: Effective Visual Impairment: No Limitations Hearing Ability: Normal Neurobiologist Required: No Beliefs That Will Affect Care: None Current Living Situation: Spouse current occupational status: unemployed Feels Safe at Home: Yes Safety Concerns: Feels Safe At This Time Smoking Status: Current every day smoker Tobacco Type: cigarettes ; Age Started Using Tobacco: 9 ; packs per day: 0.5 ; Cigarettes Per Day: 10 ; Second Hand Exposure: Yes ; Tobacco Cessation Education Requested by Patient: No Hx Alcohol Use: No Hx Substance Use: Yes substance use type: former substance user, heroin and IV drugs Last Used Substance: Unknown Last Used Substance Other:: finished rehab to be weaned off subutex Review of Systems Review of Systems: All systems reviewed & are unremarkable except as noted in HPI & below + Headache + Urinary frequency + Nausea Physical Exam Physical Exam: General: patient resting comfortably, NAD, non-toxic in appearance, AA&O x 4 Skin: warm, dry, intact, healed lesions on forearms and legs HEENT: NC/AT, PERRL, EOMI, anicteric sclera, conjunctiva without injection, external ear normal to inspection and nontender, nares patent, moist mucus membranes, dentition intact, no oropharyngeal lesions, neck supple, trachea midline, no LAD, no thyromegaly, no JVD Heart: +S1/S2, regular, tachycardic, no m/r/g Lungs: equal air entry bilaterally, no rales/rhonchi/wheezes Abd: +BS, soft, ND, + suprapubic tenderness, + right CVA tenderness, no masses/organomegaly/ascites Ext: warm, 2+ pulses in UE/LE bilaterally, no clubbing/cyanosis or edema Neuro: nonfocal, patient AA&O x 4, speech intact, no facial droop, moving all extremities on command with equal strength 5/5 Results & Data Vital Signs (Past 12 Hours) Vital Signs Temp Pulse Pulse Resp BP BP Pulse Ox 05/08/19 19:53 118 H 20 143/94 H 97 05/08/19 18:45 100 05/08/19 16:54 37 C 139 H 18 115/75 100 Laboratory Results Lab Results 05/08/19 05/08/19 05/08/19 Range/Units 19:50 19:50 20:20 WBC 21.60 H (4.8-10.8) K/uL RBC 4.84 (4.2-5.4) M/uL Hgb 13.7 (12.0-16.0) g/dL Hct 41.1 (37-47) % MCV 84.9 (80-100) fL MCH 28.3 (25-34) pg MCHC 33.3 (32-36) g/dL RDW Std Deviation 47.2 H (36.4-46.3) fL RDW Coeff of Scarlet 15.1 H (11.5-14.5) % Plt Count 253 (130-400) K/uL MPV 9.4 (7.4-10.4) fL Immature Gran % (Auto) 0.4 % Neut % (Auto) 85.3 % Lymph % (Auto) 7.4 % [place] % (Auto) 6.9 % Eos % (Auto) 0.0 % Baso % (Auto) 0.0 % Immature Gran # (Auto) 0.08 H (0.00-0.02) K/uL Neut # (Auto) 18.42 H (1.4-6.5) K/uL Lymph # (Auto) 1.59 (1.2-3.4) K/uL [place] # (Auto) 1.49 H (0.11-0.59) K/uL Eos # (Auto) 0.01 (0-0.5) K/uL Baso # (Auto) 0.01 (0-0.2) K/uL PT (9.0-12.0) Seconds INR (0.9-1.1) Sodium (136-145) mmol/L Potassium (3.5-5.1) mmol/L Chloride (98-107) mmol/L Carbon Dioxide (21-32) mmol/L Anion Gap (3-11) BUN (7-18) mg/dl Creatinine (0.6-1.2) mg/dl Est Cr Clr Drug Dosing ml/min Est GFR ( Amer) Est GFR (Non-Af Amer) BUN/Creatinine Ratio (10-20) Glucose (70-99) mg/dl Lactate (0.4-2.0) mmol/L Calcium (8.5-10.1) mg/dl Phosphorus (2.5-4.9) mg/dl Magnesium (1.8-2.4) mg/dl Total Bilirubin (0.2-1) mg/dl AST (15-37) U/L ALT (12-78) U/L Alkaline Phosphatase (45-117) U/L Total Protein (6.4-8.2) gm/dl Albumin (3.4-5.0) gm/dl Globulin (2.5-4.0) gm/dl Albumin/Globulin Ratio (0.9-2) Lipase (73-393) U/L HCG, Qual (Negative) Urine Color Yellow Urine Appearance Cloudy A (Clear) Urine pH 5.0 (4.5-7.5) Ur Specific [place] 1.020 (1.000-1.030) Urine Protein 1+ H (Negative) Urine Glucose (UA) Negative (Negative) Urine Ketones Negative (Negative) Urine Blood 2+ H (Negative) Urine Nitrite Positive A (Negative) Urine Bilirubin Negative (Negative) Urine Urobilinogen Negative (Negative) Ur Leukocyte Esterase 2+ H (Negative) Urine WBC (Auto) >30 H (0-5) /hpf Urine RBC (Auto) 0-4 (0-4) /hpf U Hyaline Cast (Auto) 1-5 (0-5) /lpf U Epithel Cells (Auto) 20-30 H (0-5) /lpf Urine Bacteria (Auto) 3+ H (Negative) Urine Yeast Budding A (None Prsent) Urine Opiates Screen Neg (Neg) Ur Methadone, Qual Neg (Neg) Urine Barbiturates Neg (Neg) Ur Phencyclidine (PCP) Neg (Neg) U Amphetamin/Meth Scrn Neg (Neg) MDMA (Ecstasy) Screen Neg (Neg) U Benzodiazepines Scrn Neg (Neg) Ur Cocaine Metabolite Neg (Neg) U Marijuana (THC) Screen Neg (Neg) 05/08/19 05/08/19 05/08/19 Range/Units 20:20 20:20 20:25 WBC (4.8-10.8) K/uL RBC (4.2-5.4) M/uL Hgb (12.0-16.0) g/dL Hct (37-47) % MCV (80-100) fL MCH (25-34) pg MCHC (32-36) g/dL RDW Std Deviation (36.4-46.3) fL RDW Coeff of Scarlet (11.5-14.5) % Plt Count (130-400) K/uL MPV (7.4-10.4) fL Immature Gran % (Auto) % Neut % (Auto) % Lymph % (Auto) % [place] % (Auto) % Eos % (Auto) % Baso % (Auto) % Immature Gran # (Auto) (0.00-0.02) K/uL Neut # (Auto) (1.4-6.5) K/uL Lymph # (Auto) (1.2-3.4) K/uL [place] # (Auto) (0.11-0.59) K/uL Eos # (Auto) (0-0.5) K/uL Baso # (Auto) (0-0.2) K/uL PT < 8.7 L (9.0-12.0) Seconds INR < 0.8 L (0.9-1.1) Sodium 135 L (136-145) mmol/L Potassium 4.0 (3.5-5.1) mmol/L Chloride 103 (98-107) mmol/L Carbon Dioxide 24 (21-32) mmol/L Anion Gap 8.0 (3-11) BUN 12 (7-18) mg/dl Creatinine 0.88 (0.6-1.2) mg/dl Est Cr Clr Drug Dosing 90.7 ml/min Est GFR ( Amer) 105.1 Est GFR (Non-Af Amer) 90.7 BUN/Creatinine Ratio 13.8 (10-20) Glucose 103 H (70-99) mg/dl Lactate (0.4-2.0) mmol/L Calcium 8.8 (8.5-10.1) mg/dl Phosphorus 2.5 (2.5-4.9) mg/dl Magnesium 1.8 (1.8-2.4) mg/dl Total Bilirubin 0.3 (0.2-1) mg/dl AST 15 (15-37) U/L ALT 30 (12-78) U/L Alkaline Phosphatase 142 H (45-117) U/L Total Protein 8.5 H (6.4-8.2) gm/dl Albumin 3.9 (3.4-5.0) gm/dl Globulin 4.6 H (2.5-4.0) gm/dl Albumin/Globulin Ratio 0.8 L (0.9-2) Lipase 69 L (73-393) U/L HCG, Qual Negative (Negative) Urine Color Urine Appearance (Clear) Urine pH (4.5-7.5) Ur Specific [place] (1.000-1.030) Urine Protein (Negative) Urine Glucose (UA) (Negative) Urine Ketones (Negative) Urine Blood (Negative) Urine Nitrite (Negative) Urine Bilirubin (Negative) Urine Urobilinogen (Negative) Ur Leukocyte Esterase (Negative) Urine WBC (Auto) (0-5) /hpf Urine RBC (Auto) (0-4) /hpf U Hyaline Cast (Auto) (0-5) /lpf U Epithel Cells (Auto) (0-5) /lpf Urine Bacteria (Auto) (Negative) Urine Yeast (None Prsent) Urine Opiates Screen (Neg) Ur Methadone, Qual (Neg) Urine Barbiturates (Neg) Ur Phencyclidine (PCP) (Neg) U Amphetamin/Meth Scrn (Neg) MDMA (Ecstasy) Screen (Neg) U Benzodiazepines Scrn (Neg) Ur Cocaine Metabolite (Neg) U Marijuana (THC) Screen (Neg) 05/08/19 Range/Units 22:20 WBC (4.8-10.8) K/uL RBC (4.2-5.4) M/uL Hgb (12.0-16.0) g/dL Hct (37-47) % MCV (80-100) fL MCH (25-34) pg MCHC (32-36) g/dL RDW Std Deviation (36.4-46.3) fL RDW Coeff of Scarlet (11.5-14.5) % Plt Count (130-400) K/uL MPV (7.4-10.4) fL Immature Gran % (Auto) % Neut % (Auto) % Lymph % (Auto) % [place] % (Auto) % Eos % (Auto) % Baso % (Auto) % Immature Gran # (Auto) (0.00-0.02) K/uL Neut # (Auto) (1.4-6.5) K/uL Lymph # (Auto) (1.2-3.4) K/uL [place] # (Auto) (0.11-0.59) K/uL Eos # (Auto) (0-0.5) K/uL Baso # (Auto) (0-0.2) K/uL PT (9.0-12.0) Seconds INR (0.9-1.1) Sodium (136-145) mmol/L Potassium (3.5-5.1) mmol/L Chloride (98-107) mmol/L Carbon Dioxide (21-32) mmol/L Anion Gap (3-11) BUN (7-18) mg/dl Creatinine (0.6-1.2) mg/dl Est Cr Clr Drug Dosing ml/min Est GFR ( Amer) Est GFR (Non-Af Amer) BUN/Creatinine Ratio (10-20) Glucose (70-99) mg/dl Lactate 1.1 (0.4-2.0) mmol/L Calcium (8.5-10.1) mg/dl Phosphorus (2.5-4.9) mg/dl Magnesium (1.8-2.4) mg/dl Total Bilirubin (0.2-1) mg/dl AST (15-37) U/L ALT (12-78) U/L Alkaline Phosphatase (45-117) U/L Total Protein (6.4-8.2) gm/dl Albumin (3.4-5.0) gm/dl Globulin (2.5-4.0) gm/dl Albumin/Globulin Ratio (0.9-2) Lipase (73-393) U/L HCG, Qual (Negative) Urine Color Urine Appearance (Clear) Urine pH (4.5-7.5) Ur Specific [place] (1.000-1.030) Urine Protein (Negative) Urine Glucose (UA) (Negative) Urine Ketones (Negative) Urine Blood (Negative) Urine Nitrite (Negative) Urine Bilirubin (Negative) Urine Urobilinogen (Negative) Ur Leukocyte Esterase (Negative) Urine WBC (Auto) (0-5) /hpf Urine RBC (Auto) (0-4) /hpf U Hyaline Cast (Auto) (0-5) /lpf U Epithel Cells (Auto) (0-5) /lpf Urine Bacteria (Auto) (Negative) Urine Yeast (None Prsent) Urine Opiates Screen (Neg) Ur Methadone, Qual (Neg) Urine Barbiturates (Neg) Ur Phencyclidine (PCP) (Neg) U Amphetamin/Meth Scrn (Neg) MDMA (Ecstasy) Screen (Neg) U Benzodiazepines Scrn (Neg) Ur Cocaine Metabolite (Neg) U Marijuana (THC) Screen (Neg) Diagnostic Findings ABDOMEN AND PELVIS CT WITH IV CONTRAST CT DOSE: 325.61 mGy.cm HISTORY: Acute generalized abdominal pain with urinary tract infection uti, abd pain, WBC 21K TECHNIQUE: Multiaxial CT images of the abdomen and pelvis were performed following the IV administration of 92 cc of Optiray 320, A dose lowering technique was utilized adhering to the principles of ALARA. COMPARISON STUDY: CT abdomen and pelvis 12/11/2018 FINDINGS: There are a few scattered solid pulmonary nodules of the lung bases measuring up to 4 mm. Trace pleural effusions. Mild dependent subsegmental bibasilar atelectasis. There is no pneumatosis or pneumoperitoneum. The imaged inferior cardiac chambers are unremarkable. Gallbladder, spleen, liver, pancreas and adrenal glands appear unremarkable. Unremarkable appearance of the left kidney. Patchy heterogeneous enhancement of the right kidney is noted with mild pelvocaliectasis. Urothelial thickening of the right renal collecting system, ureter and renal pelvis. No obstructing lesion or calculus. Mild circumferential wall thickening of the urinary bladder. Uterus and adnexa are unremarkable. Aorta and IVC are within normal limits. Mildly prominent retroperitoneal lymph nodes, likely reactive. No bowel obstruction or bowel wall thickening. Mild to moderate fecal retention. Visualized appendix appears noninflamed within the abdominal right lower quadrant. Mild diastases recti with tiny fat filled periumbilical hernia. Imaged breast parenchyma and soft tissues appear unremarkable. Bones appear intact. IMPRESSION: 1. Mild urinary bladder wall thickening suspicious for cystitis. Additionally, there are findings of right-sided pyelonephritis with associated urothelial thickening suggestive of associated ureteritis/pyelitis. 2. No renal or ureteral calculi. 3. Mild to moderate fecal retention. 4. No bowel obstruction or bowel wall thickening. 5. Trace pleural effusions with scattered bibasilar solid pulmonary nodules measuring up to 4 mm, likely infectious or inflammatory. Electronically signed by: Camacho Jimenez M.D. 05/08/2019 9:58 PM Dictated: [id number]/08/[id number] Transcribed: 05/08/192151 Code Status & VTE Plan Code Status Full code VTE Prophylaxis Plan Reason for no VTE drug order: Treatment not indicated Reason for no VTE mechanical prophylaxis: Treatment not indicated PG Care Time/CCT Total # of Minutes Spent Total Time Spent with Patient: Total time spent is greater than 50% in coordin ation of care (as documented) at patient's floor/unit and/or counseling patient: (1) ADHD Attention deficit-hyperactivity disorder type: unspecified Qualified Code(s): F90.9 - Attention-deficit hyperactivity disorder, unspecified type
--- NOTE | 2019-05-08 23:17 | Emergency Department Note ---
Entered by Josr Malik acting as a scribe for Ej Gomez MD History of Present Illness General Chief complaint: Pain (Generalized) Stated complaint: CHEST AND STOMACH PAIN, BODY ACHES, HEADACHE Time Seen by Provider: 05/08/19 17:19 Source: patient History of Present Illness Onset (ago): day(s) (yesterday) Location: back Pain Consistency: + other (worsening) Maximum Pain Intensity: 5 Quality: + other (cramping) Associated symptoms: + denies other symptoms (congestion), + chest pain and + headaches; no cough The patient is a 24 y/o female who presents to the ED w/ CC of worsening back pain and cramping beginning yesterday. The patient states she is having cramps a ll over in her back and chest. She reports a history of kidney infections and notes that this is different because she started to get tense. The patient notes she is also developing a headache and reports a recent history of migraines. Shes states her right back pain started yesterday, and the rest of her symptoms started today. The patient denies burning with urination. She reports she is a current smoker and denies a new cough or congestion. The patient notes she takes BuSpar and Effexor. She states her last menstrual cycle was a few days ago, and it was normal. The patient states she has a history of several infections secondary to an IV access that resulted in several scars. Home Medications Home Medications Medication Instructions Recorded Confirmed Type atomoxetine 80 mg PO QAM 05/08/19 05/08/19 History buspirone 10 mg PO TID 05/08/19 05/08/19 History clonidine HCl 0.1 mg PO TID PRN 05/08/19 05/08/19 History hydroxyzine pamoate 50 mg PO TID PRN 05/08/19 05/08/19 History mirtazapine 15 mg PO HS 05/08/19 05/08/19 History quetiapine 50 mg PO BID 05/08/19 05/08/19 History venlafaxine 150 mg PO QAM 05/08/19 05/08/19 History Allergies Allergy/AdvReac Type Severity Reaction Status Date / Time No Known Allergies Allergy Verified 02/11/19 17:55 Past Med/Surg History Medical History ADHD Anemia COPD (chronic obstructive pulmonary disease) Depression with anxiety Hepatitis C Surgical History H/O dilation and curettage Previous section Family History Other No pertinent family history Social History Preferred Language: Polish Communication Ability: Effective Visual Impairment: No Limitations Hearing Ability: Normal Rn Float Required: No Beliefs That Will Affect Care: None Current Living Situation: Spouse current occupational status: unemployed Feels Safe at Home: Yes Safety Concerns: Feels Safe At This Time Smoking Status: Current every day smoker Tobacco Type: cigarettes ; Age Started Using Tobacco: 9 ; packs per day: 0.5 ; Cigarettes Per Day: 10 ; Second Hand Exposure: Yes ; Tobacco Cessation Education Requested by Patient: No Hx Alcohol Use: No Hx Substance Use: Yes substance use type: former substance user, heroin and IV drugs Last Used Substance: Unknown Last Used Substance Other:: finished rehab to be weaned off subutex Review of Systems See HPI for pertinent positives & negatives. and A total of 10 systems reviewed and were otherwise negative Physical Exam Vital Signs Vital Signs - 24 hr 05/08/19 16:54 05/08/19 18:45 05/08/19 19:53 Temperature 37 C Temperature Source Oral Pulse Rate 139 H Pulse Rate [Finger] 118 H Pulse Rhythm Regular Pulse Strength Normal Respiratory Rate 18 20 Respiratory Effort / Characteristics Non-Labored Spontaneous Respiratory Depth Normal Respiratory Pattern Regular Blood Pressure 115/75 Blood Pressure [Left Arm] 143/94 H Blood Pressure Mean 88 Blood Pressure Mean [Left Arm] 110 Blood Pressure Position Sitting Pulse Oximetry 100 100 97 Oxygen Delivery Method Room Air Room Air Room Air Sepsis Recent Fever Within 48 Hours No Sepsis New/Unexplained Change in Mental Status No Sepsis Action Taken by Nursing No Action Required GENERAL: Awake, alert, uncomfortable-appearing, in no distress HENT: Normocephalic, atraumatic. Oropharynx with dry mucous membranes and otherwise unremarkable. EYES: Normal conjunctiva. Sclera non-icteric. NECK: Supple. No nuchal rigidity. FROM. No JVD. RESPIRATORY: CTAB. CARDIAC: Tachycardic rate, normal rhythm. Extremities warm and well perfused. Pulses equal. ABDOMEN: Soft, non-distended. Mild lower abdominal discomfort without discrete tenderness to palpation. No rebound or guarding. No masses. RECTAL: Deferred. MUSCULOSKELETAL: Chest examination reveals no tenderness. The back is symmetrical on inspection without obvious abnormality. There is no CVA tend erness to palpation. No joint edema. LOWER EXTREMITIES: Calves are equal size bilaterally and non-tender. No edema. No discoloration. NEURO: Normal sensorium. No sensory or motor deficits noted. SKIN: No jaundice noted. Scattered ecchymosis of the bilateral upper extremities and lower legs. Procedures EJ/Peripheral Line Arm R: Time Out Performed: Yes Skin Cleansed in Sterile Fashion: Yes Size (gauge): 18 IV Secured and Dressing Applied: Yes Patient Tolerated Procedure: well Additional Comments: Right upper arm. Performed under dynamic US guidance. Course Course 1750: Past medical records reviewed. The patient was evaluated in room C12B. A complete history and physical exam was performed. 1846: I placed an IV in the patient's right AC. 1930: The patient states her IV was hurting. Although it was working well, the patient's IV was removed. 2012: I established a new line in the right upper arm. 2102: The patient is refusing the CT, but she will take the antibiotics. 2120: Upon reevaluation, the patient is resting comfortably. I discussed laboratory and radiographic results with her. She verbalized agreement of the treatment plan. The patient will be evaluated for further management and care. 2125: I reviewed the patient's case with Dr. Santana, [facility] Hospitalist. She will evaluate the patient for further management. Continuous Cardiac Monitoring: Indication: Infection Rhythm: Sinus Tachycardia Rate: 118 Other: 96% RA Administered Medications Acetaminophen (Tylenol) 650 mg PO Q6 PRN PRN Reason: Pain or Fever Stop: 06/07/19 23:20 Last Admin: 05/09/19 01:40 Dose: 650 mg Documented by: [id number] Hydroxyzine HCl (Vistaril) 50 mg PO TID PRN PRN Reason: anxiety Stop: 06/07/19 23:40 Last Admin: 05/09/19 00:47 Dose: 50 mg Documented by: [id number] Sodium Chloride (Nss 1000ml) 1,000 mls @ 125 mls/hr IV .Q8H [facility] Stop: 05/09/19 15:20 Last Admin: 05/09/19 00:20 Dose: 125 mls/hr Documented by: [id number] Ceftriaxone Sodium 1,000 mg/ (Dextrose) 50 mls @ 100 mls/hr IV Q24H [facility]; Protocol Stop: 05/14/19 00:00 Last Infusion: 05/09/19 00:49 Dose: 0 mls/hr Documented by: [id number] Admin: 05/09/19 00:19 Dose: 100 mls/hr Documented by: [id number] Ioversol (Optiray 320 100ml) 92 ml IV ONCE PRN PRN Reason: Interaction Checking Stop: 05/12/19 21:34 Last Admin: 05/08/19 21:36 Dose: 92 ml Documented by: [id number] Ketorolac Tromethamine (Toradol) 15 mg IV Q6H PRN PRN Reason: Pain Stop: 05/13/19 23:20 Last Admin: 05/09/19 00:30 Dose: 15 mg Documented by: [id number] Quetiapine Fumarate (Seroquel) 50 mg PO BID [facility] Stop: 06/07/19 23:20 Last Admin: 05/09/19 00:13 Dose: 50 mg Documented by: [id number] Discontinued Medications Diphenhydramine HCl (Benadryl) 25 mg IV NOW STA Stop: 05/08/19 17:52 Last Admin: 05/08/19 20:41 Dose: 25 mg Documented by: [id number] Sodium Chloride (Nss 1000ml) 2,000 mls @ 999 mls/hr IV .Q2H1M ONE Stop: 05/08/19 19:51 Last Infusion: 05/08/19 22:25 Dose: 0 mls/hr Documented by: [id number] Admin: 05/08/19 20:42 Dose: 999 mls/hr Documented by: [id number] Prochlorperazine (Compazine) 2 mls @ 1 mls/min IV ONE ONE Stop: 05/08/19 17:52 Last Admin: 05/08/19 20:42 Dose: 1 mls/min Documented by: [id number] Acetaminophen (Ofirmev) 1,000 mg in 100 mls @ 400 mls/hr IV NOW STA Stop: 05/08/19 18:05 Last Admin: 05/08/19 22:45 Dose: Not Given Documented by: [id number] Piperacillin Sod/Tazobactam Sod (Zosyn) 4.5 gm in 120 mls @ 240 mls/hr IV NOW ONE Stop: 05/08/19 21:11 Last Infusion: 05/08/19 21:50 Dose: 0 mls/hr Documented by: [id number] Admin: 05/08/19 21:20 Dose: 240 mls/hr Documented by: [id number] Vancomycin HCl 1,500 mg/ (Sodium Chloride) 530 mls @ 200 mls/hr IV NOW ONE Stop: 05/08/19 23:20 Last Infusion: 05/09/19 00:10 Dose: 0 mls/hr Documented by: [id number] Admin: 05/08/19 21:20 Dose: 200 mls/hr Documented by: [id number] Ketorolac Tromethamine (Toradol) 15 mg IV NOW STA Stop: 05/08/19 17:52 Last Admin: 05/08/19 20:42 Dose: 15 mg Documented by: [id number] Medical Decision Making Differential Diagnosis Differential diagnoses includes but is not limited to gastritis, peptic ulcer disease, GERD, gallbladder disease, pancreatitis, small bowel obstruction, acute coronary syndrome, pericarditis, ischemic bowel, irritable bowel disease, irritable bowel syndrome, appendicitis, diverticulitis, malignancy, hernia, urinary tract infection, torsion, /ectopic , perforation, t rauma, infectious. Medical Records Attestation: I reviewed the patient's medical records. Home Medications Current Medication List: was personally reviewed by me Laboratory Data Attestation: I reviewed the patient's lab results. Result diagrams: 05/08/19 20:20 05/08/19 20:20 Lab Results 05/08/19 05/08/19 05/08/19 Range/Units 19:50 19:50 20:20 WBC 21.60 H (4.8-10.8) K/uL RBC 4.84 (4.2-5.4) M/uL Hgb 13.7 (12.0-16.0) g/dL Hct 41.1 (37-47) % MCV 84.9 (80-100) fL MCH 28.3 (25-34) pg MCHC 33.3 (32-36) g/dL RDW Std Deviation 47.2 H (36.4-46.3) fL RDW Coeff of Scarlet 15.1 H (11.5-14.5) % Plt Count 253 (130-400) K/uL MPV 9.4 (7.4-10.4) fL Immature Gran % (Auto) 0.4 % Neut % (Auto) 85.3 % Lymph % (Auto) 7.4 % [place] % (Auto) 6.9 % Eos % (Auto) 0.0 % Baso % (Auto) 0.0 % Immature Gran # (Auto) 0.08 H (0.00-0.02) K/uL Neut # (Auto) 18.42 H (1.4-6.5) K/uL Lymph # (Auto) 1.59 (1.2-3.4) K/uL [place] # (Auto) 1.49 H (0.11-0.59) K/uL Eos # (Auto) 0.01 (0-0.5) K/uL Baso # (Auto) 0.01 (0-0.2) K/uL PT (9.0-12.0) Seconds INR (0.9-1.1) Sodium (136-145) mmol/L Potassium (3.5-5.1) mmol/L Chloride (98-107) mmol/L Carbon Dioxide (21-32) mmol/L Anion Gap (3-11) BUN (7-18) mg/dl Creatinine (0.6-1.2) mg/dl Est Cr Clr Drug Dosing ml/min Est GFR ( Amer) Est GFR (Non-Af Amer) BUN/Creatinine Ratio (10-20) Glucose (70-99) mg/dl Calcium (8.5-10.1) mg/dl Phosphorus (2.5-4.9) mg/dl Magnesium (1.8-2.4) mg/dl Total Bilirubin (0.2-1) mg/dl AST (15-37) U/L ALT (12-78) U/L Alkaline Phosphatase (45-117) U/L Total Protein (6.4-8.2) gm/dl Albumin (3.4-5.0) gm/dl Globulin (2.5-4.0) gm/dl Albumin/Globulin Ratio (0.9-2) Lipase (73-393) U/L HCG, Qual (Negative) Urine Color Yellow Urine Appearance Cloudy A (Clear) Urine pH 5.0 (4.5-7.5) Ur Specific [place] 1.020 (1.000-1.030) Urine Protein 1+ H (Negative) Urine Glucose (UA) Negative (Negative) Urine Ketones Negative (Negative) Urine Blood 2+ H (Negative) Urine Nitrite Positive A (Negative) Urine Bilirubin Negative (Negative) Urine Urobilinogen Negative (Negative) Ur Leukocyte Esterase 2+ H (Negative) Urine WBC (Auto) >30 H (0-5) /hpf Urine RBC (Auto) 0-4 (0-4) /hpf U Hyaline Cast (Auto) 1-5 (0-5) /lpf U Epithel Cells (Auto) 20-30 H (0-5) /lpf Urine Bacteria (Auto) 3+ H (Negative) Urine Yeast Budding A (None Prsent) Urine Opiates Screen Neg (Neg) Ur Methadone, Qual Neg (Neg) Urine Barbiturates Neg (Neg) Ur Phencyclidine (PCP) Neg (Neg) U Amphetamin/Meth Scrn Neg (Neg) MDMA (Ecstasy) Screen Neg (Neg) U Benzodiazepines Scrn Neg (Neg) Ur Cocaine Metabolite Neg (Neg) U Marijuana (THC) Screen Neg (Neg) 05/08/19 05/08/19 05/08/19 Range/Units 20:20 20:20 20:25 WBC (4.8-10.8) K/uL RBC (4.2-5.4) M/uL Hgb (12.0-16.0) g/dL Hct (37-47) % MCV (80-100) fL MCH (25-34) pg MCHC (32-36) g/dL RDW Std Deviation (36.4-46.3) fL RDW Coeff of Scarlet (11.5-14.5) % Plt Count (130-400) K/uL MPV (7.4-10.4) fL Immature Gran % (Auto) % Neut % (Auto) % Lymph % (Auto) % [place] % (Auto) % Eos % (Auto) % Baso % (Auto) % Immature Gran # (Auto) (0.00-0.02) K/uL Neut # (Auto) (1.4-6.5) K/uL Lymph # (Auto) (1.2-3.4) K/uL [place] # (Auto) (0.11-0.59) K/uL Eos # (Auto) (0-0.5) K/uL Baso # (Auto) (0-0.2) K/uL PT < 8.7 L (9.0-12.0) Seconds INR < 0.8 L (0.9-1.1) Sodium 135 L (136-145) mmol/L Potassium 4.0 (3.5-5.1) mmol/L Chloride 103 (98-107) mmol/L Carbon Dioxide 24 (21-32) mmol/L Anion Gap 8.0 (3-11) BUN 12 (7-18) mg/dl Creatinine 0.88 (0.6-1.2) mg/dl Est Cr Clr Drug Dosing 90.7 ml/min Est GFR ( Amer) 105.1 Est GFR (Non-Af Amer) 90.7 BUN/Creatinine Ratio 13.8 (10-20) Glucose 103 H (70-99) mg/dl Calcium 8.8 (8.5-10.1) mg/dl Phosphorus 2.5 (2.5-4.9) mg/dl Magnesium 1.8 (1.8-2.4) mg/dl Total Bilirubin 0.3 (0.2-1) mg/dl AST 15 (15-37) U/L ALT 30 (12-78) U/L Alkaline Phosphatase 142 H (45-117) U/L Total Protein 8.5 H (6.4-8.2) gm/dl Albumin 3.9 (3.4-5.0) gm/dl Globulin 4.6 H (2.5-4.0) gm/dl Albumin/Globulin Ratio 0.8 L (0.9-2) Lipase 69 L (73-393) U/L HCG, Qual Negative (Negative) Urine Color Urine Appearance (Clear) Urine pH (4.5-7.5) Ur Specific [place] (1.000-1.030) Urine Protein (Negative) Urine Glucose (UA) (Negative) Urine Ketones (Negative) Urine Blood (Negative) Urine Nitrite (Negative) Urine Bilirubin (Negative) Urine Urobilinogen (Negative) Ur Leukocyte Esterase (Negative) Urine WBC (Auto) (0-5) /hpf Urine RBC (Auto) (0-4) /hpf U Hyaline Cast (Auto) (0-5) /lpf U Epithel Cells (Auto) (0-5) /lpf Urine Bacteria (Auto) (Negative) Urine Yeast (None Prsent) Urine Opiates Screen (Neg) Ur Methadone, Qual (Neg) Urine Barbiturates (Neg) Ur Phencyclidine (PCP) (Neg) U Amphetamin/Meth Scrn (Neg) MDMA (Ecstasy) Screen (Neg) U Benzodiazepines Scrn (Neg) Ur Cocaine Metabolite (Neg) U Marijuana (THC) Screen (Neg) Imaging Data Radiologist's Impression: Radiology results as stated below per my review and the radiologist's interpretation: ABDOMEN AND PELVIS CT WITH IV CONTRAST CT DOSE: 325.61 mGy.cm HISTORY: Acute generalized abdominal pain with urinary tract infection uti, abd pain, WBC 21K TECHNIQUE: Multiaxial CT images of the abdomen and pelvis were performed following the IV administration of 92 cc of Optiray 320, A dose lowering technique was utilized adhering to the principles of ALARA. COMPARISON STUDY: CT abdomen and pelvis 12/11/2018 FINDINGS: There are a few scattered solid pulmonary nodules of the lung bases measuring up to 4 mm. Trace pleural effusions. Mild dependent subsegmental bibasilar atelectasis. There is no pneumatosis or pneumoperitoneum. The imaged inferior cardiac chambers are unremarkable. Gallbladder, spleen, liver, pancreas and adrenal glands appear unremarkable. Unremarkable appearance of the left kidney. Patchy heterogeneous enhancement of the right kidney is noted with mild pelvocal iectasis. Urothelial thickening of the right renal collecting system, ureter and renal pelvis. No obstructing lesion or calculus. Mild circumferential wall thickening of the urinary bladder. Uterus and adnexa are unremarkable. Aorta and IVC are within normal limits. Mildly prominent retroperitoneal lymph nodes, likely reactive. No bowel obstruction or bowel wall thickening. Mild to moderate fecal retention. Visualized appendix appears noninflamed within the abdominal right lower quadrant. Mild diastases recti with tiny fat filled periumbilical hernia. Imaged breast parenchyma and soft tissues appear unremarkable. Bones appear intact. IMPRESSION: 1. Mild urinary bladder wall thickening suspicious for cystitis. Additionally, there are findings of right-sided pyelonephritis with associated urothelial thickening suggestive of associated ureteritis/pyelitis. 2. No renal or ureteral calculi. 3. Mild to moderate fecal retention. 4. No bowel obstruction or bowel wall thickening. 5. Trace pleural effusions with scattered bibasilar solid pulmonary nodules measuring up to 4 mm, likely infectious or inflammatory. Electronically signed by: Camacho Jimenez M.D. 05/08/2019 9:58 PM Blood Pressure Blood Pressure Findings: Elevated blood pressure Blood Pressure Disposition: Referred to patients primary care provider [facility] Narrative The patient is a pleasant 24-year-old woman with a past medical history of IV drug abuse, subcutaneous abscess who presents emergency department with lower abdominal pain, lower back pain feverishness and chills per hpi. On arrival patient is uncomfortable no acute distress, afebrile with heart rate in the 130s and vital signs otherwise stable. On exam patient has mild lower abdominal tenderness without guarding or rebound. Patient was difficult to obtain IV access and required ultrasound-guided peripheral line placement. Initial line was obtained in the right AC and was functioning appropriately however the patient continued to complain of discomfort despite dysfunctioning line however she demanded it be removed. A subsequent 18-gauge PIV was placed in the right upper extremity again under ultrasound guidance with good draw and flush. Patient was more tolerant of this placement. Lab work subsequently demonstrates leukocytosis of 20 1K. Otherwise H/H and platelets within normal limits. Chemistry without acidosis. Electrolytes and LFTs unremarkable. Lactate wnl. UA consistent with infection with 2+ LE, WBC greater than 30 and nitrite positive with 3+ bacteria. Patient was ordered for Zosyn and vancomycin empirically given the patient's history of IV drug use and leukocytosis. CT and pelvis was performed and demonstrates findings consistent with cystitis as well as right sided pyelonephritis/pyelitis. Patient was agreeable with plan for admission. Case was discussed with Dr. Santana, [facility], who evaluate the patient for admission. Impression & Plan Pyelonephritis, Leukocytosis, Dehydration, Nausea Discharge Plan Visit Data *Final* Discharge Date/Time: 05/08/19 23:10 Chief Complaint: Pain (Generalized) Stated Complaint: CHEST AND STOMACH PAIN, BODY ACHES, HEADACHE ED Provider: Ej Gomez Discharge Problem: Pyelonephritis, Leukocytosis, Dehydration, Nausea Patient Disposition: Admitted As Inpatient Discharge Problem: Leukocytosis Qualifiers: Leukocytosis type: unspecified Qualified Code(s): D72.829 - Elevated white blood cell count, unspecified The scribe's documentation has been prepared under my direction and personally reviewed by me in its entirety. I confirm that the note above accurately reflects all work, treatment, procedures, and medical decision making performed by me.
[2019-05-08] MEDS ORDERED: ONDANSETRON INJ 2 MG/ML 2 ML VIAL IV PRN (23:21)
[2019-05-08] MEDS ORDERED: cloNIDine HCl 0.1 MG TAB PO PRN (23:21)
[2019-05-09] MEDS: QUETIAPINE FUMARATE 25 MG TABLET PO SCH ×3 (00:13→20:40)
[2019-05-09] MEDS: cefTRIAXone SODIUM 1,000 MG in DEXTROSE 5% 50 ML IV SCH ×2 (00:19→23:59)
[2019-05-09] MEDS: SODIUM CHLORIDE 0.9% 1000ML 1,000 ML IV SCH ×2 (00:20→08:10)
[2019-05-09] MEDS: KETOROLAC TROMETHAMINE 15 MG/ML VIAL IV PRN ×4 (00:30→21:39)
[2019-05-09] MEDS: ACETAMINOPHEN SOL 650 MG/20.3 ML UDC PO PRN ×2 (01:40→08:10)
[2019-05-09 06:24] LABS: Basophils # (auto) 0.01 K/uL (0-0.2); Basophils % (auto) 0.1 %; Eosinophils # (auto) 0.02 K/uL (0-0.5); Eosinophils % (auto) 0.1 %; Hemoglobin 12.5 g/dL (12.0-16.0); Immature Granulocytes # (auto) 0.05 K/uL (0.00-0.02); Immature Granulocytes % (auto) 0.3 %; Lymphocytes # (auto) 2.19 K/uL (1.2-3.4); Lymphocytes % (auto) 12.2 %; Mean Corpuscular Hemoglobin 28.3 pg (25-34); Mean Corpuscular Hgb Conc 33.8 g/dL (32-36); Mean Corpuscular Volume 83.7 fL (80-100); Mean Platelet Volume 9.2 fL (7.4-10.4); Monocytes # (auto) 1.73 K/uL (0.11-0.59); Monocytes % (auto) 9.6 %; Neutrophils # (auto) 13.96 K/uL (1.4-6.5); Neutrophils % (auto) 77.7 %; Platelet Count 183 K/uL (130-400); RDW Coefficient of Variation 15.2 % (11.5-14.5); RDW Standard Deviation 46.7 fL (36.4-46.3); Red Blood Count 4.42 M/uL (4.2-5.4); White Blood Count 17.96 K/uL (4.8-10.8)
[2019-05-09 06:58] LABS: BUN Creatinine Ratio 12.5 (10-20); Creatinine Clr Calc Pharmacy 127.2 ml/min; Est GFR (African American) 139.9; Est GFR (Non-African American) 120.7; Potassium 3.7 mmol/L (3.5-5.1)
[2019-05-09] MEDS: NICOTINE 21 MG/24 HR TDSY TD SCH (08:01)
[2019-05-09] MEDS: VENLAFAXINE HCL XR 150 MG CAPXR PO SCH (08:02)
[2019-05-09] MEDS: ATOMOXETINE HCL 40 MG CAPSULE PO SCH (08:02)
[2019-05-09] MEDS: ACETAMINOPHEN SOL 650 MG/20.3 ML UDC PO SCH ×2 (13:34→23:57)
--- NOTE | 2019-05-09 16:37 | Hospitalist Progress Note ---
Date of Service May 09, 2019 Assessment & Plan (1) Pyelonephritis: Cathy is a 24yo female with a PMHx significant for IV drug abuse s/p rehab and Subutex treatment (currently drug-free ), recent dx of ADD and depression with anxiety who was admitted and is currently being treated for pyelonephritis. Acute pyelonephritis/cystitis -Pt with urinary frequency, R back pain and suprapubic pain, nausea and body aches. -Febrile, tachycardic with +UA, leukocytosis -CT abd/pelvis-indicated cystitis and R pyelonephritis -procalcitonin negative -Received doses of Vanc and Zosyn in ED; transitioned to rocephin 1g on admission -Blood and urine Cx still pending- can narrow abx once urine/blood cx grows -Scheduled Tylenol 1000mg with PRN Toradol 30mg IV as needed for pain control; Cr currently 0.68 -Given pt's Hx of drug abuse, would avoid narcotics for pain relief. -continue to monitor fever curve, WBC and subjective improvement in symptoms Depression w/Anxiety: Continue home Buspirone 10mg, Remeron 15mg, Seroquel 50mg, Venlafaxine 150mg ADD: continue home Atomoxetine 80mg Current Smoker status: Continue Nicotine patch. Important to keep cravings under control as pt left AMA previously as she was not allowed to smoke. Hx of IV drug abuse: s/p rehab and Subutex treatment; currently drug free. FEN/GI: fluids d/c'ed due to noted swelling in hands and feet. Regular diet. DVT prophylaxis: Ambulation as tolerated CODE STATUS: full Dispo: D/c pending abx narrowing, subjective and clinical improvement. Supervising Physician Co-Signing Physician Notes Resident Physician Supervision Note: I independently interviewed and examined the patient and verified the foy history and physical, reviewed labs and image studies, discussed the case with the resident Dr. Garcia and agree with the findings and care plan. Subjective Cathy seen this AM. States she still has right sided back pain and right sided suprapubic pain. Has urinary frequency but denies any dysuria, hematuria or subjective fevers, chills or night sweats. Denies any headache, changes to vision, cough, runny nose, sore throat, dizziness, weakness, chest pain, SOB, palpitations, abdominal pain, diarrhea or constipation, swelling in hands or feet or numbness or tingling anywhere. Review of Systems Review of Systems: All systems reviewed & are unremarkable except as noted in HPI & below Physical Exam Physical Exam: General: Alert, oriented once awoken from sleep. Skin: No noted rashes or bruises Psych: Appropriate mood and affect Neuro: No gross deficits HEENT: NC/AT Chest: Nontender to palpation. CV: RRR, Normal s1, s2. No murmurs appreciated Resp: Breath sounds clear bilaterally, no increased effort of breathing. No crackles/rhonchi/rales. Abdomen: Soft, tender in suprapubic area especially on the right side, nondistended. No guarding. No organomegaly appreciated. Extremities: Some slight edema in lower extremities bilaterally and hands. Hands with no evidence of infection. Results & Data Vital Signs (Past 12 Hours) Vital Signs Temp Pulse Resp BP Pulse Ox 05/09/19 15:51 36.7 C 108 H 19 122/83 99 05/09/19 06:59 37.3 C 108 H 19 118/78 95 05/09/19 06:14 36.9 C Laboratory Results Laboratory Results - last 24 hr 05/08/19 05/08/19 05/08/19 19:50 19:50 20:20 WBC 21.60 H RBC 4.84 Hgb 13.7 Hct 41.1 MCV 84.9 MCH 28.3 MCHC 33.3 RDW Std Deviation 47.2 H RDW Coeff of Scarlet 15.1 H Plt Count 253 MPV 9.4 Immature Gran % (Auto) 0.4 Neut % (Auto) 85.3 Lymph % (Auto) 7.4 [place] % (Auto) 6.9 Eos % (Auto) 0.0 Baso % (Auto) 0.0 Immature Gran # (Auto) 0.08 H Neut # (Auto) 18.42 H Lymph # (Auto) 1.59 [place] # (Auto) 1.49 H Eos # (Auto) 0.01 Baso # (Auto) 0.01 PT INR Sodium Potassium Chloride Carbon Dioxide Anion Gap BUN Creatinine Est Cr Clr Drug Dosing Est GFR ( Amer) Est GFR (Non-Af Amer) BUN/Creatinine Ratio Glucose Lactate Calcium Phosphorus Magnesium Total Bilirubin AST ALT Alkaline Phosphatase Total Protein Albumin Globulin Albumin/Globulin Ratio Lipase HCG, Qual Urine Color Yellow Urine Appearance Cloudy A Urine pH 5.0 Ur Specific [place] 1.020 Urine Protein 1+ H Urine Glucose (UA) Negative Urine Ketones Negative Urine Blood 2+ H Urine Nitrite Positive A Urine Bilirubin Negative Urine Urobilinogen Negative Ur Leukocyte Esterase 2+ H Urine WBC (Auto) >30 H Urine RBC (Auto) 0-4 U Hyaline Cast (Auto) 1-5 U Epithel Cells (Auto) 20-30 H Urine Bacteria (Auto) 3+ H Urine Yeast Budding A Urine Opiates Screen Neg Ur Methadone, Qual Neg Urine Barbiturates Neg Ur Phencyclidine (PCP) Neg U Amphetamin/Meth Scrn Neg MDMA (Ecstasy) Screen Neg U Benzodiazepines Scrn Neg Ur Cocaine Metabolite Neg U Marijuana (THC) Screen Neg 05/08/19 05/08/19 05/08/19 20:20 20:20 20:25 WBC RBC Hgb Hct MCV MCH MCHC RDW Std Deviation RDW Coeff of Scar[place] Plt Count MPV Immature Gran % (Auto) Neut % (Auto) Lymph % (Auto) [place] % (Auto) Eos % (Auto) Baso % (Auto) Immature Gran # (Auto) Neut # (Auto) Lymph # (Auto) [place] # (Auto) Eos # (Auto) Baso # (Auto) PT < 8.7 L INR < 0.8 L Sodium 135 L Potassium 4.0 Chloride 103 Carbon Dioxide 24 Anion Gap 8.0 BUN 12 Creatinine 0.88 Est Cr Clr Drug Dosing 90.7 Est GFR ( Amer) 105.1 Est GFR (Non-Af Amer) 90.7 BUN/Creatinine Ratio 13.8 Glucose 103 H Lactate Calcium 8.8 Phosphorus 2.5 Magnesium 1.8 Total Bilirubin 0.3 AST 15 ALT 30 Alkaline Phosphatase 142 H Total Protein 8.5 H Albumin 3.9 Globulin 4.6 H Albumin/Globulin Ratio 0.8 L Lipase 69 L HCG, Qual Negative Urine Color Urine Appearance Urine pH Ur Specific [place] Urine Protein Urine Glucose (UA) Urine Ketones Urine Blood Urine Nitrite Urine Bilirubin Urine Urobilinogen Ur Leukocyte Esterase Urine WBC (Auto) Urine RBC (Auto) U Hyaline Cast (Auto) U Epithel Cells (Auto) Urine Bacteria (Auto) Urine Yeast Urine Opiates Screen Ur Methadone, Qual Urine Barbiturates Ur Phencyclidine (PCP) U Amphetamin/Meth Scrn MDMA (Ecstasy) Screen U Benzodiazepines Scrn Ur Cocaine Metabolite U Marijuana (THC) Screen 05/08/19 05/09/19 05/09/19 22:20 06:04 06:04 WBC 17.96 H RBC 4.42 Hgb 12.5 Hct 37.0 MCV 83.7 MCH 28.3 MCHC 33.8 RDW Std Deviation 46.7 H RDW Coeff of Scar[place] 15.2 H Plt Count 183 MPV 9.2 Immature Gran % (Auto) 0.3 Neut % (Auto) 77.7 Lymph % (Auto) 12.2 [place] % (Auto) 9.6 Eos % (Auto) 0.1 Baso % (Auto) 0.1 Immature Gran # (Auto) 0.05 H Neut # (Auto) 13.96 H Lymph # (Auto) 2.19 [place] # (Auto) 1.73 H Eos # (Auto) 0.02 Baso # (Auto) 0.01 PT INR Sodium 138 Potassium 3.7 Chloride 109 H Carbon Dioxide 23 Anion Gap 6.0 BUN 9 Creatinine 0.68 Est Cr Clr Drug Dosing 127.2 Est GFR ( Amer) 139.9 Est GFR (Non-Af Amer) 120.7 BUN/Creatinine Ratio 12.5 Glucose 90 Lactate 1.1 Calcium 8.0 L Phosphorus Magnesium Total Bilirubin AST ALT Alkaline Phosphatase Total Protein Albumin Globulin Albumin/Globulin Ratio Lipase HCG, Qual Urine Color Urine Appearance Urine pH Ur Specific [place] Urine Protein Urine Glucose (UA) Urine Ketones Urine Blood Urine Nitrite Urine Bilirubin Urine Urobilinogen Ur Leukocyte Esterase Urine WBC (Auto) Urine RBC (Auto) U Hyaline Cast (Auto) U Epithel Cells (Auto) Urine Bacteria (Auto) Urine Yeast Urine Opiates Screen Ur Methadone, Qual Urine Barbiturates Ur Phencyclidine (PCP) U Amphetamin/Meth Scrn MDMA (Ecstasy) Screen U Benzodiazepines Scrn Ur Cocaine Metabolite U Marijuana (THC) Screen Medications Administered Home Medications atomoxetine 80 mg PO QAM 05/08/19 [History Confirmed 05/08/19] buspirone 10 mg PO TID 05/08/19 [History Confirmed 05/08/19] clonidine HCl 0.1 mg PO TID PRN 05/08/19 [History Confirmed 05/08/19] hydroxyzine pamoate 50 mg PO TID PRN 05/08/19 [History Confirmed 05/08/19] mirtazapine 15 mg PO HS 05/08/19 [History Confirmed 05/08/19] quetiapine 50 mg PO BID 05/08/19 [History Confirmed 05/08/19] venlafaxine 150 mg PO QAM 05/08/19 [History Confirmed 05/08/19] Active Medications Acetaminophen (Tylenol) 1,000 mg PO Q8 [facility] Stop: 06/08/19 13:59 Last Admin: 05/09/19 13:34 Dose: 1,000 mg Documented by: Atomoxetine HCl (Strattera) 80 mg PO QAM [facility] Stop: 06/08/19 08:59 Last Admin: 05/09/19 08:02 Dose: 80 mg Documented by: Buspirone HCl (Buspar) 10 mg PO TID [facility] Stop: 06/08/19 08:59 Last Admin: 05/09/19 13:34 Dose: 10 mg Documented by: Clonidine HCl (Catapres) 0.1 mg PO TID PRN PRN Reason: Hypertension Stop: 06/07/19 23:20 Diphenhydramine HCl (Benadryl Capsule) 50 mg PO HS [facility] Stop: 06/08/19 20:59 Docusate Sodium (Colace) 100 mg PO BID PRN PRN Reason: Constipation Stop: 06/07/19 22:00 Hydroxyzine HCl (Vistaril) 50 mg PO TID PRN PRN Reason: anxiety Stop: 06/07/19 23:40 Last Admin: 05/09/19 00:47 Dose: 50 mg Documented by: Ceftriaxone Sodium 1,000 mg/ (Dextrose) 50 mls @ 100 mls/hr IV Q24H SERINA; P rotocol Stop: 05/14/19 00:00 Last Infusion: 05/09/19 00:49 Dose: Infused Documented by: Ioversol (Optiray 320 100ml) 92 ml IV ONCE PRN PRN Reason: Interaction Checking Stop: 05/12/19 21:34 Last Admin: 05/08/19 21:36 Dose: 92 ml Documented by: Ketorolac Tromethamine (Toradol) 30 mg IV Q6H PRN PRN Reason: Pain Stop: 05/13/19 23:20 Last Admin: 05/09/19 12:41 Dose: 30 mg Documented by: Mirtazapine (Remeron) 15 mg PO HS [facility] Stop: 06/08/19 20:59 Miscellaneous (Remove Nicoderm Patch) 1 ea N/A DAILY@0859 [facility] Stop: 06/09/19 08:58 Nicotine (Nicoderm Cq) 21 mg TD QAM [facility] Stop: 06/08/19 08:59 Last Admin: 05/09/19 08:01 Dose: 21 mg Documented by: Ondansetron HCl (Zofran) 4 mg IV Q6H PRN PRN Reason: Nausea Stop: 06/07/19 23:20 Quetiapine Fumarate (Seroquel) 50 mg PO BID [facility] Stop: 06/07/19 23:20 Last Admin: 05/09/19 08:03 Dose: 50 mg Documented by: Venlafaxine HCl (Effexor Extended Release) [facility] Stop: 06/08/19 08:59 Last Admin: 05/09/19 08:02 Dose: 150 mg Documented by: Resident Activity Tracking Resident Involvement: Resident Care Provided Care Provided: Adult Hospital Medicine
[2019-05-09] MEDS ORDERED: HYDROmorphone HCL 2 MG TAB PO ONE ×2 (17:53→18:16)
[2019-05-09] MEDS ORDERED: MIRTAZAPINE TAB 15 MG TAB PO SCH (21:00)
[2019-05-10] MEDS: KETOROLAC TROMETHAMINE 15 MG/ML VIAL IV PRN ×2 (04:32→11:47)
[2019-05-10 06:03] LABS: Basophils # (auto) 0.01 K/uL (0-0.2); Basophils % (auto) 0.1 %; Eosinophils # (auto) 0.09 K/uL (0-0.5); Eosinophils % (auto) 0.7 %; Hematocrit (blood only) 35.6 % (37-47); Hemoglobin 11.8 g/dL (12.0-16.0); Immature Granulocytes # (auto) 0.03 K/uL (0.00-0.02); Immature Granulocytes % (auto) 0.2 %; Lymphocytes # (auto) 1.84 K/uL (1.2-3.4); Lymphocytes % (auto) 13.8 %; Mean Corpuscular Hemoglobin 27.9 pg (25-34); Mean Corpuscular Hgb Conc 33.1 g/dL (32-36); Mean Corpuscular Volume 84.2 fL (80-100); Mean Platelet Volume 9.6 fL (7.4-10.4); Monocytes # (auto) 1.54 K/uL (0.11-0.59); Monocytes % (auto) 11.6 %; Neutrophils # (auto) 9.82 K/uL (1.4-6.5); Neutrophils % (auto) 73.6 %; Platelet Count 177 K/uL (130-400); RDW Coefficient of Variation 15.3 % (11.5-14.5); RDW Standard Deviation 47.4 fL (36.4-46.3); Red Blood Count 4.23 M/uL (4.2-5.4); White Blood Count 13.33 K/uL (4.8-10.8)
[2019-05-10 06:34] LABS: BUN Creatinine Ratio 15.4 (10-20); Calcium 8.4 mg/dl (8.5-10.1); Creatinine Clr Calc Pharmacy 151.7 ml/min; Est GFR (African American) 148.3; Est GFR (Non-African American) 127.9; Potassium 3.6 mmol/L (3.5-5.1)
[2019-05-10] MEDS: ACETAMINOPHEN SOL 650 MG/20.3 ML UDC PO SCH ×2 (07:59→13:46)
[2019-05-10] MEDS: VENLAFAXINE HCL XR 150 MG CAPXR PO SCH (08:01)
[2019-05-10] MEDS: NICOTINE 21 MG/24 HR TDSY TD SCH (08:01)
[2019-05-10] MEDS: QUETIAPINE FUMARATE 25 MG TABLET PO SCH (08:01)
[2019-05-10] MEDS: ATOMOXETINE HCL 40 MG CAPSULE PO SCH (08:02)
--- NOTE | 2019-05-10 13:23 | Discharge Summary ---
Date of Service May 10, 2019 Admission HPI Per Admitting Provider Cathy Wynne is a 24-year-old female presenting with pyelonephritis. She complains of body pains over the last few days. Pains include shooting pains all over her body as well as cramping in her arms, legs, neck and back. Additionally she complains of low back pain right side more than left as well as urinary frequency and some mild nausea. Denies fevers/chills/chest pain/shortness of breath/cough/wheeze/abdominal pain/vomiting/diarrhea/constipation. Since last admission, patient completed rehabilitation at [facility] facility where she was successfully weaned off her Subutex. She continues to abstain from drug use and is doing quite well. While at [facility] she was diagnosed with anxiety/depression as well as ADD. She was started on a number of psychiatric medications. She has been taking them fairly regularly and overall feels quite well. She did run out of medications last week and missed a number of doses. ER course: Tylenol 1 g IV, Benadryl 25 mg IV, Toradol 15 mg IV, Zosyn 4.5 g IV, vancomycin 1.5 g IV, normal saline 2 L Admission Exam Per Admitting Provider General: patient resting comfortably, NAD, non-toxic in appearance, AA&O x 4 Skin: warm, dry, intact, healed lesions on forearms and legs HEENT: NC/AT, PERRL, EOMI, anicteric sclera, conjunctiva without injection, external ear normal to inspection and nontender, nares patent, moist mucus membranes, dentition intact, no oropharyngeal lesions, neck supple, trachea midline, no LAD, no thyromegaly, no JVD Heart: +S1/S2, regular, tachycardic, no m/r/g Lungs: equal air entry bilaterally, no rales/rhonchi/wheezes Abd: +BS, soft, ND, + suprapubic tenderness, + right CVA tenderness, no masses/organomegaly/ascites Ext: warm, 2+ pulses in UE/LE bilaterally, no clubbing/cyanosis or edema Neuro: nonfocal, patient AA&O x 4, speech intact, no facial droop, moving all extremities on command with equal strength 5/5 Principal Diagnosis Pyelonephritis Discharge Exam General: Alert, oriented once awoken from sleep. Skin: No noted rashes or bruises Psych: Appropriate mood and affect Neuro: No gross deficits HEENT: NC/AT Chest: Nontender to palpation. CV: RRR, Normal s1, s2. No murmurs appreciated Resp: Breath sounds clear bilaterally, no increased effort of breathing. No crackles/rhonchi/rales. Abdomen: Soft, tender in suprapubic area and mid right abdomen, no costovertebral angle tenderness, nondistended. No guarding. No organomegaly appreciated. Extremities: Scarring of several areas of lower extremity Discharge Data Allergies Allergy/AdvReac Type Severity Reaction Status Date / Time No Known Allergies Allergy Verified 02/11/19 17:55 Consultations 05/08/19 21:28 ED Decision to Admit Stat Ordered Studies 05/08/19 20:45 CT abd pelvis IV con only Stat Hospital Course (1) Pyelonephritis: Cathy is a 24yo female with a PMHx significant for IV drug abuse s/p rehab and Subutex treatment (currently drug-free ), recent dx of ADD and depression with anxiety who was admitted for pyelonephritis. Acute pyelonephritis/cystitis -Pt with urinary frequency, R back pain and suprapubic pain, nausea and body ach es. -Febrile, tachycardic with +UA, leukocytosis -CT abd/pelvis-indicated cystitis and R pyelonephritis -procalcitonin negative -Received doses of Vanc and Zosyn in ED; transitioned to rocephin 1g on admission Blood cultures with NGTD Urine cultures growing E. Coli, sensitivities pending patient stable for discharge with just tylenol for pain control Discharging on Keflex 500 mg QID for next ten days Creatinine and electrolytes have remained stable throughout Recommend follow up with PCP within the week to ensure continues to improve Will follow up on pending sensitivities on day after discharge and will adjust antibiotic regimen as needed. Depression w/Anxiety: Continued home Buspirone 10mg, Remeron 15mg, Seroquel 50mg, Venlafaxine 150mg ADD: continued home Atomoxetine 80mg Hx of IV drug abuse: s/p rehab and Subutex treatment; currently reports to be drug free. Discharging on Keflex 500 mg QID Recommend outpatient follow up within the week I will call patient and adjust antibiotic regime as needed pending sensitivities Total Time Total Time Spent Total Time Spent (In Minutes): 30 Total Time Includes: Examination of the Patient, Discharge Planning and Me dication Reconciliation Discharge Plan Discharge Items Patient Disposition: Home - Self-Care Reason For Visit: PYELONEPHRITIS Discharge Diagnosis: Pyelonephritis Activity: Resume your previous activity Non-emergency contact: Primary Care Provider Call non-emergency contact if: you have any medication questions, your symptoms worsen, your pain is worsening, your pain is concerning for you and your temperature is above 101 Follow-up/Referrals: Debbie Pina DO [Primary Care Provider] - Diet: Regular Addtl Attending Provider Instructions: Ms. Wynne, It was a pleasure to meet you here today for your pyelonephritis. It appears that you have done much better on IV antibiotics and at this point we feel you are safe to discharge home on oral antibiotics. We will start you on Keflex, it is in the same class as cetriaxone which we used here in the hospital. It is to be taken four times daily for the next ten days. Should you notice worsening pain, fevers, chills, sweats, decreased urine p roduction or any other concerning symptoms please return to medical care. It was a pleasure to meet you and I wish you all the best moving forward. Sincerely, Favio Laboy MD Pending Studies at Discharge: Yes Studies:: Urine culture sensitivities Stand-Alone Forms: My [facility], Smoking Cessation Medications and DC Order Prescriptions: New cephalexin [Keflex] 500 mg capsule 500 mg PO QID 10 Days Qty: 40 RF: 0 Continued clonidine HCl 0.1 mg tablet 0.1 mg PO TID PRN (Reason: Hypertension) RF: 0 venlafaxine 150 mg capsule,extended release 24hr 150 mg PO QAM RF: 0 hydroxyzine pamoate 50 mg capsule 50 mg PO TID PRN (Reason: Anxiety) RF: 0 buspirone 10 mg tablet 10 mg PO TID RF: 0 mirtazapine 15 mg tablet 15 mg PO HS RF: 0 quetiapine 50 mg tablet 50 mg PO BID RF: 0 atomoxetine 80 mg capsule 80 mg PO QAM RF: 0 Discharge Orders: Discharge Order (Routine); Ordered 05/10/19 Ordered By: Favio Laboy Admission Data Admit Date/Time: 05/08/19 21:48 Attending Provider: Amisha Torres Admit Provider: Johana Santana Primary Care Provider: Debbie Pina Other Providers: Johana Santana Other Interventions: Discharge Summary Assessment (RN) Last Done: 05/10/19 14:46 DC Date/Time DO NOT enter until pt leaves facility: 05/10/19 15:05 Supervising Physician Co-Signing Physician Notes Resident Physician Supervision Note: I independently interviewed and examined the patient and verified the foy history and physical, reviewed labs and image studies, discussed the case with the resident Dr. Laboy and agree with the findings and care plan. Resident Activity Tracking Resident Involvement: Resident Care Provided Care Provided: Adult Hospital Medicine
[2019-05-10] MEDS: cefTRIAXone SODIUM 1,000 MG in DEXTROSE 5% 50 ML IV SCH (14:26)
== END 2019-05-10 15:05 | disposition home or self-care (01) | DRG 690 ==
LOC: ED 16:49 → SUATTDRO 21:48 → 4W 21:48